=== PATIENT | female | born 1940 | race Caucasian/White ===

== ENCOUNTER → 2023-08-22 10:58 | Outpatient (REF) | payer MEDICARE, OTHER, SELFPAY | LOC: WDC 10:58 | PROVIDERS: ATTENDING PHYSICIAN Obstetrics & Gynecology; FAMILY PHYSICIAN Family Medicine; REFERRING PHYSICIAN Internal Medicine Hematology & Oncology | DX: Z12.31 Encounter for screening mammogram for malignant neoplasm of breast (principal); Z78.0 Asymptomatic menopausal state; E28.39 Other primary ovarian failure | CPT/HCPCS: 77063; 77067; 77080 ==

== ENCOUNTER → 2023-09-23 11:36 | Outpatient (REF) | payer MEDICARE, OTHER, SELFPAY ==
[2023-09-23 13:22] LABS: % Basophils 0.4 % (0-2); % Eosinophils 0.3 % (0-6); % Immature Granulocytes 0.6 % (0-0.5); % Lymphocytes 19.1 % (20.5-51.1); % Monocytes 5.5 % (1.7-9.3); % Neutrophils 74.1 % (42.2-75.2); Absolute Lymphocytes 1.4 10^3/uL (1.2-3.4); Absolute Monocytes 0.4 10^3/uL (0.1-0.6); Absolute Neutrophils 5.2 10^3/uL (1.4-6.5); Hemoglobin 13.6 g/dL (12.0-16.0); Mean Corpuscular Hgb 30.8 pg (27.0-31.0); Mean Corpuscular Volume 90.5 fL (81.0-99.0); Mean Platelet Volume 8.9 fL (7.4-10.4); Nucleated Red Blood Cells % 0 %; Platelet Count 195 10^3/uL (130-400); Red Blood Cell Count 4.42 10^6/uL (4.20-5.40); Red Cell Dist. Width 13.5 % (11.5-14.5); White Blood Cell Count 7.1 10^3/uL (4.8-10.8)
[2023-09-23 13:26] LABS: Urine Albumin Negative (Neg - Trace); Urine Bilirubin Negative (Negative); Urine Character Clear (Clear); Urine Color Yellow; Urine Glucose Negative (Negative); Urine Ketone Negative (Negative); Urine Leukocyte 2+ (Negative); Urine Nitrite Negative (Negative); Urine Occult Blood 2+ (Negative); Urine Urobilinogen Negative (Neg - 1+)
[2023-09-23 13:39] LABS: Urine Bacteria Few (Negative); Urine Red Blood Cell 0-2 /HPF (0-2)
[2023-09-23 13:48] LABS: AST (SGOT) 35 U/L (14-36); Albumin 4.8 g/dl (3.5-5.0); Blood Urea Nitrogen 20 mg/dl (7-17); Carbon Dioxide 22 mmol/L (22-30); Glucose 88 mg/dl (70-99); Total Bilirubin 3.5 mg/dl (0.2-1.3); Total Cholesterol 142 mg/dl (50-199); Triglyceride 59 mg/dl (10-149); Very Low Density Lipoprotein 11 mg/dl (0-30); eGFR > 60.00
[2023-09-23 14:04] LABS: ALT (SGPT) 49 U/L (0-35); Alkaline Phosphatase 84 U/L (38-126); Chloride 104 mmol/L (98-107); Potassium 4.1 mmol/L (3.5-5.1); Sodium 133 mmol/L (135-145)
[2023-09-23 14:05] LABS: Vitamin D, 25-OH*** 38.3 ng/mL (30-80)
[2023-09-23 14:14] LABS: HDL Cholesterol 107 mg/dl; LDL Cholesterol, Calculated 24 mg/dl
[2023-09-23 14:17] LABS: Glycohemoglobin (HgbA1c) 5.8 % (4.0-5.6)
[2023-09-23 14:18] LABS: TSH Reflex To Free T4 1.28 uIU/ml (0.47-4.68)
[2023-09-23 22:09] LABS: Vitamin B12 820 pg/ml (239-931)
== END ==
LOC: RAD 11:36
PROVIDERS: ATTENDING PHYSICIAN Specialist; FAMILY PHYSICIAN Family Medicine; OTHER PHYSICIAN Internal Medicine Cardiovascular Disease; OTHER PHYSICIAN Obstetrics & Gynecology; REFERRING PHYSICIAN Internal Medicine Hematology & Oncology
DX: Z87.442 Personal history of urinary calculi (principal); N39.0 Urinary tract infection, site not specified; E78.2 Mixed hyperlipidemia; R73.03 Prediabetes; R53.83 Other fatigue; K50.90 Crohn's disease, unspecified, without complications
CPT/HCPCS: 36415; 74018; 80053; 80061; 81003; 81015; 82306; 82607; 83036; 84443; 85025; 87086

== ENCOUNTER 2023-12-13 01:37 | Inpatient (IN) | payer MEDICARE, OTHER, SELFPAY ==
[2023-12-12 21:35] VITALS: BP 145/78
--- NOTE | 2023-12-12 21:59 | ED.GENMED ---
History of Present Illness
General
Chief Complaint: Abdominal Symptoms
Source: patient
Exam Limitations: none
Time Seen by Provider: 12/12/23 21:46
History of Present Illness
History of Present Illness:
This is a 83 year old female that comes in with c/o abd pain. States that she has a bowel obstruction. States that she has had them before. State that she is occasionally able to pass a little gas and some liquid stool. States that this awoke her
from sleep at 5am today. States that she would have periods of 1-2 hours where she would feel better and then the pain would come back. Dr. Foster called Dr. Armas who is her surgeon. States that she chronically has diarrhea and has been a little
dizzy. Denies any fever, chills chest pain, SOB, nausea, vomiting, headache, urinary burning
Past History
Past History
ED Past Medical History: Asthma and Other (Vertigo, Crohns, Renal calculus, Anemia, Bowel obstructions. )
ED Past Surgical History: Appendectomy and Bowel resection (Colectomy X 5 rectal surgery, )
Social History
Tobacco: Non-smoker
Alcohol: None
Drug: None
Personal:
Living: with family
Review of Systems
Review of Systems
All Other Systems: ROS reviewed and negative except as documented in HPI and ROS
Constitutional: Reports no symptoms; Denies fever or chills
EENT: Reports no symptoms
Respiratory: Reports no symptoms; Denies cough or trouble breathing
Cardiac: Reports no symptoms; Denies chest pain
ABD/GI: Reports abdominal pain and diarrhea; Denies nausea or vomiting
: Reports no symptoms; Denies dysuria, frequency or urgency
Musculoskeletal: Reports no symptoms
Skin: Reports no symptoms
Neurological: Reports dizzy; Denies headache
Psychiatric: Reports no symptoms
Phy Exam
General Physical Exam
General Presentation: mild distress
General age: appears stated age
General Skin: warm and dry
General Habitus: elderly
General Mental: alert
General Hydration: dry mucous membranes
ENT Exam
ENT Exam: TM's normal, pharynx normal and neck supple
Eye Exam
Eye Exam: EOMI
Cardiovascular Exam
Cardiovascular Exam: regular rate/rhythm, no edema and normal peripheral pulses
Pulmonary Exam
Pulmonary Exam: lungs clear, no respiratory distress, no rales, chest non tender, no crackles, no rhonchi, no wheezing and no cough
Gastrointestinal Exam
Gastrointestinal Exam: soft, no organomegaly, no pulsatile mass, non distended, tender and other (Hypoactive bowel sounds)
Musculoskeletal Exam
Musculoskeletal Exam: full ROM and no edema
Skin Exam
Skin Exam: normal color, warm/dry, no rash and no petechia
Psychiatric Exam
Psychiatric Exam: normal mood/affect
Course
Orders/Labs/Results
Orders:
Orders
12/12/23 21:56
0.9% Sodium Chloride 1000 ml [Nss] 1,000 ml IV BOLUS
Iohexol [Omnipaque] See Protocol PO NOW STA
12/12/23 21:58
Ketorolac [Toradol] 30 mg IV NOW STA
12/12/23 22:40
Complete Blood Count/With Diff Urgent
Comprehensive Metabolic Panel Urgent
Lactic Acid Urgent
12/13/23 00:30
CT Abd/pel W Iv And Oral Contr Urgent
Comment: Dr. Armas would also like rectal contrast
Reason For Exam: abd pain
12/13/23 01:24
Consult Colorectal Surgery [ColoRectal Surgery Consult] Urgent
Consulting Provider: Josef Armas
Was physician already notified: Yes
12/13/23 01:25
Morphine Sulfate 2 mg IV NOW STA
12/13/23 01:26
Admit/Transfer Patient As Directed
Co-Sign Provider:
Level of Care: Inpatient admission
Assign to:: Medical/Surgical
Physician / Group: [email or web address]
Diagnosis: Evolving SBO due to volvulus
Reason for Hospitalization: Evolving SBO due to volvulus
Expected length of stay greater than two midnights?: Yes
ELOS- Estimated Length of Stay in days: 3
I certify the patient meets the requirements for IP care: Yes
12/13/23 01:29
Code Status As Directed
Resuscitation Status: Full Code
Abnormal Lab Results
12/12/23
22:40
WBC 11.8 H 10^3/uL
(4.8-10.8)
MCH 31.2 H pg
(27.0-31.0)
Absolute Neuts (auto) 9.4 H 10^3/uL
(1.4-6.5)
Absolute Monos (auto) 0.9 H 10^3/uL
(0.1-0.6)
Neutrophils % 79.2 H %
(42.2-75.2)
Lymphocytes % 11.3 L %
(20.5-51.1)
Glucose 101 H mg/dl
(70-99)
Total Bilirubin 4.2 H mg/dl
(0.2-1.3)
12/12/23 22:40
12/12/23 22:40
WBC slightly elevated. Glucose nonfasting. total micheal elevation. Lactic acid normal at 1.0
Vital Signs
Initial and Last Documented VS:
Initial Vital Signs
Temp Pulse Resp BP Pulse Ox
98.0 F 81 19 145/78 94
12/12/23 21:35 12/12/23 21:35 12/12/23 21:35 12/12/23 21:35 12/12/23 21:35
Last Documented Vital Signs
Temp Pulse Resp BP Pulse Ox
98.0 F 69 18 141/64 99
12/12/23 21:35 12/13/23 01:15 12/13/23 01:15 12/13/23 01:15 12/13/23 01:15
MDM/Problems Addressed
Differential Diagnosis Includes:
Bowel obstruction,
MDM/Problems Addressed:
This is a 83 year old female that comes in with c/o abd pain. States that she has had bowel obstructions in the past and feels that she has an obstruction. Son spoke with Dr. Armas and he would like a CT scan with oral and rectal contrast.
Will get labs, give IV fluids and CT scan. Will also medicate for pain.
Back into see patient. Explained that the CT shows a bowel obstruction and there is most likely a Volvulus. Will admit patient. Hospitalist and Dr. Armas notified.
Chronic conditions affecting care: Previous abdomnial surgery
Acute Exacerbation and/or Progression of Chronic Illness: Previous abdomnial surgery
*Radiology
Radiology exam reviewed: radiology read reviewed (CT night hawk-Likely distl small bowel volvulus (series 202 image [id number]), with dilated loops of upstream smal bowel compatible with developing small bowel obstruction. Evidence of prior Colectomy.
Cholelithiasis without evidence of cholecystitis. Incidentals: No obstructive uropathy. Nonobstructing ) and all reviewed NAD by ED Provider (CT cont- left nephrolithiasis. No hepatic or pancreatic mass. No abdominal aortic aneurysm. No acute
osseous abnormality. 8mm right lower lobe pulmonary nodule (series 201 image 5) No acute abnormality within the visualized soft tissues. )
*Pulse Oximetry
Patient hypoxic: no
*EKG
Interpreted by ED Provider?: NA
Rate: EKG- N/A
*Parts Consultant Interpretation
Rate: Parts Consultant- N/A
*Critical Care Note
Total Time (30-74mins, 75-104mins- exclusive of procedures): Not Applicable
ED Attending Note
-
Portions of this chart may have been created with voice recognition software.� Occasional wrong word or��sound alike� substitutions may have occurred due to the inherent limitations of voice recognition software.
Discharge Plan
Departure
Patient Disposition: Admit
Date of Disposition: 12/13/23
Time of Disposition: 01:26
Admit to: Med/Surg
Presentation/result/management discussed w/ accepting MD/DO: Hospitalist
Patient with high blood pressure during this ER visit?: Yes
Condition: Good
Covid-19: Not Applicable
Discharge Problem:
SBO (small bowel obstruction), Volvulus
Interventions
Interventions:
*Risk Screen - Suicide Last Done: 12/12/23 23:00
*General Assessment Last Done: 12/12/23 21:36
*Neglect/Abuse Screening Last Done: 12/12/23 23:00
ED- Fall Risk Assessment Last Done: 12/12/23 22:58
*ED COVID-19 Vaccine History Last Done: 12/12/23 21:36
YR-Rjcvgg-Jmogoyrlir Assessment Last Done: 12/12/23 22:58
[2023-12-12 22:31] VITALS: BMI 21.0
[2023-12-12] MEDS: OMNIPAQUE 50 ML PO (22:35)
[2023-12-12] MEDS: TORADOL 30 MG IV (22:39)
[2023-12-12] MEDS: NSS 1000 IV (22:39)
[2023-12-12 22:49] LABS: % Basophils 0.3 % (0-2); % Eosinophils 1.1 % (0-6); % Immature Granulocytes 0.3 % (0-0.5); % Lymphocytes 11.3 % (20.5-51.1); % Monocytes 7.8 % (1.7-9.3); % Neutrophils 79.2 % (42.2-75.2); Absolute Eosinophils 0.1 10^3/uL (0-0.7); Absolute Lymphocytes 1.3 10^3/uL (1.2-3.4); Absolute Monocytes 0.9 10^3/uL (0.1-0.6); Absolute Neutrophils 9.4 10^3/uL (1.4-6.5); Hematocrit 38.6 % (37.0-47.0); Hemoglobin 13.6 g/dL (12.0-16.0); Mean Corp Hgb Conc. 35.2 g/dL (33.0-37.0); Mean Corpuscular Hgb 31.2 pg (27.0-31.0); Mean Corpuscular Volume 88.5 fL (81.0-99.0); Mean Platelet Volume 8.5 fL (7.4-10.4); Nucleated Red Blood Cells % 0 %; Platelet Count 161 10^3/uL (130-400); Red Blood Cell Count 4.36 10^6/uL (4.20-5.40); Red Cell Dist. Width 13.3 % (11.5-14.5); White Blood Cell Count 11.8 10^3/uL (4.8-10.8)
[2023-12-12 23:04] LABS: ALT (SGPT) 20 U/L (0-35); AST (SGOT) 32 U/L (14-36); Albumin 4.4 g/dl (3.5-5.0); Alkaline Phosphatase 70 U/L (38-126); Blood Urea Nitrogen 13 mg/dl (7-17); Calcium 9.6 mg/dl (8.4-10.2); Carbon Dioxide 26 mmol/L (22-30); Chloride 102 mmol/L (98-107); Estimated Creatinine Clearance 50 ml/min; Glucose 101 mg/dl (70-99); Potassium 3.7 mmol/L (3.5-5.1); Sodium 135 mmol/L (135-145); Total Bilirubin 4.2 mg/dl (0.2-1.3); Total Protein 7.5 g/dl (6.3-8.2); eGFR > 60.00
[2023-12-13] VITALS (17 sets, daily range): BP systolic 111–141; BP diastolic 53–71; PULSE 80; O2SAT 97; BMI 21.0
--- NOTE | 2023-12-13 01:05 | HPS.HSE ---
Addendum entered and electronically signed by Hamlet Amezcua MD 12/13/23 02:18:
As per CRS Dr Parsons, will plan for OR around 4-5 am.
- T & S, INR requested
- will keep NPO and IVF
- patient was informed
Original Note:
Family Physician
-
Family Physician: Troy Diaz
Chief Complaint
-
woke up with abdominal pain at 5 am 12/12/23
History of Present Illness
83F HX recurrent SBO, Laparotomy with reduction of volvulus, tube decompression and suture pexy on 03/01/23. seen at ER for abd pain.
Evaluation of abdominal pain
- report similar to prior SBO
- colicky abdominal pain woke her up from the sleep at 5am today.
- HX chronic diarrhea with mild dizziness
ROS:
Denies any fever, chills chest pain, SOB, nausea, vomiting, headache, urinary burning
Medical History
Past Medical History
Past Medical History: Reports Other
Additional Past Medical History:
Crohn disease
small bowel obstruction
Asthma
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
Past Surgical History: Reports Other
Additional Past Surgical History:
Multiple colectomy
Rectal surgery
Appendectomy
Laparotomy with reduction of volvulus, tube decompression and suture pexy on 03/01/23.
Social History
Tobacco: Non-smoker
Alcohol: None
Drug: None
Personal:
Living: With Family
Employment: Retired
Family History
Family History: Not pertinent
Allergies / Home Medications
Allergies reflects when Allergies were last updated in [facility].
Home Medications with original date entered in [facility]
Allergy/Medication List:
Allergies
Allergy/AdvReac Type Severity Reaction Status Date / Time
codeine Allergy Unknown Verified 11/26/17 00:55
seasonal Allergy sneezing Uncoded 11/26/17 00:55
silk sutures Allergy abcess Uncoded 11/26/17 00:55
Home Medications
biotin 5,000 mcg disintegrating tablet 5,000 mcg PO DAILY 11/26/17
calcium citrate 315 mg calcium-vitamin D3 6.25 mcg (250 unit) tablet (Citracal + Vitamin D Maximum) 1 ea PO NOON 11/26/17
cetirizine 10 mg tablet 10 mg PO DAILY 11/26/17
cyanocobalamin (vitamin B-12) 1,000 mcg/mL injection solution 1,000 mcg IM MONTHLY 11/26/17
fluticasone propionate 50 mcg/actuation nasal spray,suspension 1 spray intranasal DAILY 11/26/17
guaifenesin 600 mg tablet, extended release 12 hr (Mucus Relief ER) 600 mg PO DAILYPRN PRN cough 11/26/17
omeprazole 20 mg capsule,delayed release 20 mg PO DAILY 11/26/17
azelastine 137 mcg (0.1 %) nasal spray aerosol 1 spray intranasal DAILY 03/01/23
cholecalciferol (vitamin D3) 125 mcg (5,000 unit) tablet (Vitamin D3) 125 mcg PO QPM 03/01/23
cholestyramine (with sugar) 4 gram powder for susp in a packet 4 g PO DAILY 03/01/23
estradiol 0.025 mg/24 hr weekly transdermal patch 1 patch transdermal TU 03/01/23
fluticasone 250 mcg-salmeterol 50 mcg/dose blistr powdr for inhalation (Wixela Inhub) 1 inh inhalation R DAILY 03/01/23
montelukast 10 mg tablet 10 mg PO QPM 03/01/23
progesterone micronized 100 mg capsule 100 mg PO QPM 03/01/23
psyllium 1 packet PO QPM 03/01/23
Review of Systems
-
Constitutional: Reports No Symptoms
EENT: Reports No Symptoms
Respiratory: Reports No Symptoms
Cardiac: Reports No Symptoms
Abdomen/GI: Reports Abdominal Pain, Nausea and Diarrhea (chronic )
: Reports No Symptoms
Musculoskeletal: Reports No Symptoms
Skin: Reports No Symptoms
Neurological: Reports No Symptoms
Endocrine: Reports No Symptoms
Hematologic/Lymphatic: Reports No Symptoms
Psych: Reports No Symptoms
Physical Exam
Vital Signs
Vital Signs
Temp Pulse Resp BP Pulse Ox
98.0 F 81 19 145/78 94
12/12/23 21:35 12/12/23 21:35 12/12/23 21:35 12/12/23 21:35 12/12/23 21:35
Physical Exam
General: Well Developed, Well Nourished and No Apparent Distress
HEENT: NormoCephalic, Moist mucous membranes and Atraumatic
Respiratory: Clear
Cardiac: S1/S2 and Regular Rhythm; No Murmur or Rub
GI: Tender and Distended; No Organomegaly
Rectal: Deferred by Provider
Musculoskeletal: No Clubbing, No Cyanosis and No Edema
Skin: No Rash
Neuro: AO x 3 and Nonfocal/grossly intact
Psych: Calm
Laboratory Results
-
12/12/23 22:40
12/12/23 22:40
Laboratory Results
Lactic Acid 1.0 mmol/L (0.7-2.0) 12/12/23 22:40
Total Bilirubin 4.2 mg/dl (0.2-1.3) H 12/12/23 22:40
AST 32 U/L (14-36) 12/12/23 22:40
ALT 20 U/L (0-35) 12/12/23 22:40
Alkaline Phosphatase 70 U/L (38-126) 12/12/23 22:40
Data Reviewed
-
CT Scan: Discussed with Physician
Lab Data: Labs Reviewed by me
Old Records: Reviewed
Impression/Plan
-
Reviewed VS: unremarkable
Data
WCC 11.8
Cr 0.7
e GFR >60
TB 4.2
12/12/23 CT AP w PO contrast
Likely distl small bowel volvulus (series 202 image [id number]), with dilated loops of upstream smal bowel compatible with developing small bowel obstruction.
Evidence of prior Colectomy.
Cholelithiasis without evidence of cholecystitis.
Incidentals: No obstructive uropathy. Nonobstructing left nephrolithiasis. No hepatic or pancreatic mass.
No abdominal aortic aneurysm.
No acute osseous abnormality. 8mm right lower lobe pulmonary nodule (series 201 image 5)
No acute abnormality within the visualized soft tissues
Last hospitalist admission: 03/01/23 - 03/08/23
DISCHARGE DIAGNOSES:
1. Volvulus status post laparotomy with reduction of volvulus.
2. Tube decompression and suture pexy.
3. Asthma.
4. Hypokalemia-low potassium.
5. Crohn's disease.
ASSESSMENT & PLAN
Likely distal small bowel volvulus with dilated loops of upstream small bowel compatible with developing small bowel obstruction: recurrent
- NPO and IVF
- NGT for decompression if persistent emesis
- PRN IV Zofran for n/v
- PRN IV Dilaudid
- CRS consulted
HX asthma
-Not in acute exacerbation
-Fluticasone continued
HX Crohn disease
-Holding all oral medication due to strict n.p.o.
-Resume once patient is able to tolerate oral intake
DVT Px: SQH
Code: Full
IP MS
[2023-12-13] MEDS: MORPHINE SULFATE 2 MG IV (01:29)
[2023-12-13] MEDS: NSS 1000 IV ×3 (02:34→20:11)
--- NOTE | 2023-12-13 05:11 | CON.CRS ---
Consultation
-
Date/Time Consultation Requested: 12/13/23 @1:24
Date/Time Consultation Performed: 12/13/23 @4:30
Requesting Provider: ESTIVEN West
Performing Provider: Fernando Armas MD
Reason for Consultation: Small bowel volvulus
Medical History
-
Chief Complaint: Abdominal pain and distention
History of Present Illness:
83-year-old female well-known to me with a history of Crohn's disease having undergone multiple resections in the past, who presents with abdominal pain and distention that began at 5 AM yesterday. She has had intermittent volvulus being managed at
an outside hospital and presented to our ER in February 23, 2023 with similar symptoms. I performed a laparotomy at which time she had relatively short bowel with a volvulus of the segment just proximal to her ileosigmoid anastomosis. The
anastomosis itself was widely patent and the bowel was viable. I performed a pexy to the right lateral wall and since that time she has had 2 episodes of some abdominal cramps that quickly resolved. Over the past 24 hours she is passing very
little flatus but denies any nausea, vomiting, fevers or chills. She states she is on a fairly restricted diet and did not deviate. Her last flexible sigmoidoscopy was last year and the anastomosis was patent.
Past Medical History
Past Medical History: Asthma, GERD and Other (Nephrolithiasis, history ()
Past Surgical History: Appendectomy and Bowel Resection (5 colectomies many years ago and the laparotomy last year without a resection; perianal fistula surgery)
Social History
Tobacco: Non-Smoker
Alcohol: None
Personal:
Family History
Family History: Reviewed & Not Pertinent
Allergies / Home Medications
Allergy/AdvReac Type Severity Reaction Status Date / Time
codeine Allergy Unknown Verified 12/12/23 21:35
some dissolvable sutures Allergy Severe Unknown Uncoded 12/12/23 21:35
seasonal Allergy sneezing Uncoded 12/12/23 21:35
silk sutures Allergy abcess Uncoded 12/12/23 21:35
�Medication �Instructions �Recorded �Confirmed �Type
biotin 5,000 mcg disintegrating 5,000 mcg PO HS Supplement 11/26/17 12/12/23 History
tablet
calcium citrate 315 mg 1 ea PO QPM Supplement 11/26/17 12/12/23 History
calcium-vitamin D3 6.25 mcg (250
unit) tablet (Citracal + Vitamin D
Maximum)
cetirizine 10 mg tablet 10 mg PO HS Allergies 11/26/17 12/12/23 History
fluticasone propionate 50 1 spray intranasal HS Allergies 11/26/17 12/12/23 History
mcg/actuation nasal
spray,suspension
guaifenesin 600 mg tablet, 600 mg PO DAILYPRN PRN 11/26/17 12/12/23 History
extended release 12 hr (Mucus cough/congestion
Relief ER)
omeprazole 20 mg capsule,delayed 20 mg PO HS GERD 11/26/17 12/12/23 History
release
azelastine 137 mcg (0.1 %) nasal 1 spray intranasal DAILY Allergies 03/01/23 12/12/23 History
spray
cholecalciferol (vitamin D3) 125 125 mcg PO HS Supplement 03/01/23 12/12/23 History
mcg (5,000 unit) tablet (Vitamin
D3)
estradiol 0.025 mg/24 hr weekly 1 patch transdermal TU Hormone 03/01/23 12/12/23 History
transdermal patch replacement
fluticasone 250 mcg-salmeterol 50 1 inh inhalation R HS Allergies 03/01/23 12/12/23 History
mcg/dose blistr powdr for
inhalation (Wixela Inhub)
montelukast 10 mg tablet 10 mg PO HS Allergies 03/01/23 12/12/23 History
progesterone micronized 100 mg 100 mg PO HS Hormone replacement 03/01/23 12/12/23 History
capsule
albuterol sulfate 90 mcg/actuation 2 puff inhalation R Q6 PRN 12/12/23 12/12/23 History
aerosol inhaler sob/wheezing
cholestyramine (with sugar) 4 gram 1 ea PO DAILY 12/12/23 12/12/23 History
powder for susp in a packet
cyanocobalamin (vitamin B-12) 1,000 mcg PO HS 12/12/23 12/12/23 History
1,000 mcg tablet
famotidine 20 mg tablet 20 mg PO DAILY PRN 12/12/23 12/12/23 History
heartburn/indigestion
psyllium 1 packet PO HS 12/12/23 12/12/23 History
Review of Systems
-
History Source: Patient
All other systems: Negative unless noted
A 10 point review of systems was completed, and was negative except as per HPI.
Physical Exam
Vital Signs
Temp 98.0 F 12/12/23 21:35
Pulse 65 12/13/23 03:40
Resp Rate 16 12/13/23 03:40
Blood pressure 141/68 12/13/23 03:40
SaO2 97 12/13/23 03:40
12/11/23 12/12/23 12/13/23
06:59 06:59 06:59
Actual Weight 52.1 kg
Body Mass Index (BMI) 21.0
Lab Results / Allergies
WBC 11.8 10^3/uL (4.8-10.8) H 12/12/23 22:40
Hgb 13.6 g/dL (12.0-16.0) 12/12/23 22:40
Hct 38.6 % (37.0-47.0) 12/12/23 22:40
Plt Count 161 10^3/uL (130-400) 12/12/23 22:40
Abs Immat Gran (auto) 0.0 10^3/uL (0-0.05) 12/12/23 22:40
Neutrophils % 79.2 % (42.2-75.2) H 12/12/23 22:40
Allergy/AdvReac Type Severity Reaction Status Date / Time
codeine Allergy Unknown Verified 12/12/23 21:35
some dissolvable sutures Allergy Severe Unknown Uncoded 12/12/23 21:35
seasonal Allergy sneezing Uncoded 12/12/23 21:35
silk sutures Allergy abcess Uncoded 12/12/23 21:35
Physical Exam
General: Well Developed, Well Nourished and No Apparent Distress
HEENT: Anicteric
Respiratory: Clear
Cardiac: Regular Rhythm
GI: Soft, Non Tender and Distended (Tympanitic)
Musculoskeletal: No Edema
Neuro: Awake and Alert
Data Reviewed
-
CT Scan: Image Personally Visualized and interpreted, Report Reviewed by me and Discussed with Patient
Labs: Labs Reviewed by me and Discussed with Patient
Assessment / Plan
-
Recurrent small bowel volvulus with no evidence of bowel threat/compromise.
I reviewed the current findings and discussed the treatment options including nonoperative management versus surgery. Risks of not operating include bowel ischemia, perforation, and recurrence. Risks of surgery include, but are not limited to,
bleeding, infection, adhesions, hernias, injury to other structures, recurrent volvulus, DVT, cardiopulmonary complications, the risks of anesthesia. I also reviewed the typical recovery both in and out of the hospital as well as the functional
results. The operation would involve a laparotomy (given the degree of distention), lysis of adhesions, possible bowel resection with or without a stoma, and possibly a suture pexy again. All questions answered and she wishes to proceed with
surgery. Arrangements are in progress for the operating room.
--- NOTE | 2023-12-13 07:53 | W.IMMPOSTOP ---
Surgical Immed Post Op Note
-
Primary Surgeon: Fernando Armas MD
Physician Extender: DARLYN Gastelum
Pre-op Diagnosis: Small bowel volvulus
Post-op Diagnosis: Same
Procedure Performed: Exploratory laparotomy, detorsion of volvulus, rigid proctoscopy and suture pexy
Anesthesia Type: GET
Specimen / Cultures: None
Estimated Blood Loss: 8cc
Complications: None
Operative Findings: Small bowel volvulus (bowel without ischemia)
Chronically dilated distal small bowel
Distal loops of small bowel aligned and sutured with interrupted 3-0 Vicryl
Small bowel proximal to the anastomosis sutured to the right lateral gutter
Rigid proctoscopy for decompression
NGT in the fundus of the stomach
Her son, Riki, was updated.
[2023-12-13] MEDS: DILAUDID 0.25 MG IV ×4 (08:24→23:13)
[2023-12-13] MEDS: ADVAIR HFA 115/21 MCG INHALER INH (09:19)
--- NOTE | 2023-12-13 09:34 | W.PN.HOSP.TC ---
Today's Communication/Plan
-
ngt; adat once bowel function improves
pain control
Assessment / Plan
Assessment / Plan
Physical Exam
General: Well Developed, Well Nourished and No Apparent Distress
HEENT: Anicteric
Respiratory: Clear
Cardiac: Regular Rhythm
GI: Soft, Non Tender and Distended (Tympanitic)
Musculoskeletal: No Edema
Neuro: Awake and Alert
83F HX recurrent SBO, Laparotomy with reduction of volvulus, tube decompression and suture pexy on 03/01/23, now presents for abdominal pain, noted to have small bowel volvulus without bowel ischemia. Patient underwent Exploratory laparotomy,
detorsion of volvulus, rigid proctoscopy and suture pexy.
# Small bowel obstruction
-no evidence of bowel threat/compromise.
� S/p Exploratory laparotomy, detorsion of volvulus, rigid proctoscopy and suture pexy.
- Operative findings include small bowel volvulus. Small bowel proximal to the anastomosis was sutured to the right lateral gutter.
-Appreciate CRS on the case
-NGT decompression for now
- Pain Control
# Hyperbilirubinemia
� Appears chronic
� Follow-up direct bili
�Follow-up outpatient
HX asthma
-Not in acute exacerbation
-Fluticasone continued
HX Crohn disease
-Holding all oral medication due to strict n.p.o.
-Resume once patient is able to tolerate oral intake
-H/O colectomy x5, Anorectal Crohn's disease
-H/O perianal fistula repair
DVT Px: SQH
Code: Full
Anticipated Discharge: 24 - 48 hours
Subjective/Interval History
-
Date of Service: December 13, 2023
Tolerated exploratory laparotomy, detorsion of volvulus, rigid proctoscopy and suture pexy well this AM. Speaking in full sentences, conversant. appears comfortable.
Objective Data
-
Labs:
Laboratory Results
12/12/23 12/13/23
22:40 06:00
WBC 11.8 H Pending
Hgb 13.6 Pending
Hct 38.6 Pending
Plt Count 161 Pending
PT Pending
INR Pending
Sodium 135 Pending
Potassium 3.7 Pending
Chloride 102 Pending
Carbon Dioxide 26 Pending
BUN 13 Pending
Creatinine 0.7 Pending
Glucose 101 H Pending
Calcium 9.6 Pending
Total Bilirubin 4.2 H Pending
AST 32 Pending
ALT 20 Pending
Alkaline Phosphatase 70 Pending
Vital Signs:
Vital Signs
Temp Pulse Resp BP Pulse Ox
97.6 F 75 16 125/67 97
12/13/23 09:27 12/13/23 09:27 12/13/23 09:27 12/13/23 09:27 12/13/23 09:27
I&O
12/12/23 12/13/23 12/14/23
06:59 06:59 06:59
Intake Total 130 / 130
Output Total 200 / 200
Balance -70 / -70
Review of Systems
-
History Source: Patient
All other systems: Not reviewed unless documented
Data Reviewed
-
CT Scan: Image personally visualized and interpreted and Report Reviewed by me
Labs: Labs Reviewed by me
--- NOTE | 2023-12-13 09:45 | PTCARENOTE ---
Received this pt from PACU with ADMINISTRATIVE ASSISTANT RECEPTIONIST at bedside, 2Lo[address], NGT in right nare draining brown to continuous suction, Panda in place draining clear yellow. Pt oriented to room resting comfortably in bed with son at bedside.
[2023-12-13] MEDS: HEPARIN 5000 UNITS SC ×2 (10:29→19:54)
[2023-12-13 10:42] LABS: Hematocrit 38.1 % (37.0-47.0); Hemoglobin 12.8 g/dL (12.0-16.0); Mean Corp Hgb Conc. 33.6 g/dL (33.0-37.0); Mean Corpuscular Hgb 31.1 pg (27.0-31.0); Mean Corpuscular Volume 92.5 fL (81.0-99.0); Mean Platelet Volume 8.7 fL (7.4-10.4); Platelet Count 176 10^3/uL (130-400); Red Blood Cell Count 4.12 10^6/uL (4.20-5.40); Red Cell Dist. Width 13.5 % (11.5-14.5); White Blood Cell Count 10.1 10^3/uL (4.8-10.8)
[2023-12-13 10:57] LABS: ALT (SGPT) 18 U/L (0-35); AST (SGOT) 30 U/L (14-36); Albumin 3.4 g/dl (3.5-5.0); Alkaline Phosphatase 60 U/L (38-126); Blood Urea Nitrogen 12 mg/dl (7-17); Calcium 8.1 mg/dl (8.4-10.2); Carbon Dioxide 21 mmol/L (22-30); Chloride 106 mmol/L (98-107); Estimated Creatinine Clearance 50 ml/min; Glucose 102 mg/dl (70-99); Potassium 3.9 mmol/L (3.5-5.1); Sodium 136 mmol/L (135-145); Total Bilirubin 4.7 mg/dl (0.2-1.3); Total Protein 6.2 g/dl (6.3-8.2); eGFR > 60.00
[2023-12-13 13:54] LABS: Direct Bilirubin 0.5 mg/dl (0.0-0.4)
--- NOTE | 2023-12-13 17:27 | CM ---
S/P surgery. Currently has NGT. Initial assessment completed with patient who lives alone in a 2 story home plus basement with B/B on 1st floor and 3 steps to enter. No DME or in-home services. ELDERLY SITTER patient was independent and drove. Her
is a resident of [facility] in [facility]. There were recent end of life discussions. She has great concern because she has been with her every day and is fearful that he will decompensate without the routine of her being with him. Patient has no
Psychiatric hospitalizations. Pharmacy is [address] in [place] and PCP is Dr. Troy Diaz. Discharge Plan of Care: Patient anticipates home with no services. Will follow medical progression.
[2023-12-13] MEDS: ADVAIR HFA 115/21 MCG INHALER 2 PUFF INH (18:46)
[2023-12-14 03:29] VITALS: BP 117/54
[2023-12-14] MEDS: DILAUDID 0.25 MG IV (03:44)
[2023-12-14] MEDS: FLUSH (NSS) 2 FLUSH IV ×4 (03:47→18:33)
[2023-12-14 06:00] VITALS: BMI 20.7
--- NOTE | 2023-12-14 06:13 | PTCARENOTE ---
Patient c/o NG tube being uncomfortable and it being noisy. Repositioned patient higher in bed for comfort and to minimize noise. Patient coughed up a scant amount of blood tinged sputum. Had been advised similar occurred on dayshift.
[2023-12-14] MEDS: ADVAIR HFA 115/21 MCG INHALER 2 PUFF INH ×2 (07:24→20:46)
[2023-12-14 07:48] VITALS: BP 115/51
[2023-12-14] MEDS: HEPARIN 5000 UNITS SC ×2 (08:14→20:39)
[2023-12-14] MEDS: NSS 1000 IV ×2 (08:25→21:05)
[2023-12-14 09:25] LABS: Hematocrit 35.7 % (37.0-47.0); Hemoglobin 12.2 g/dL (12.0-16.0); Mean Corp Hgb Conc. 34.2 g/dL (33.0-37.0); Mean Corpuscular Volume 90.6 fL (81.0-99.0); Mean Platelet Volume 9.5 fL (7.4-10.4); Platelet Count 149 10^3/uL (130-400); Red Blood Cell Count 3.94 10^6/uL (4.20-5.40); Red Cell Dist. Width 13.7 % (11.5-14.5); White Blood Cell Count 7.1 10^3/uL (4.8-10.8)
[2023-12-14 10:02] LABS: ALT (SGPT) 17 U/L (0-35); AST (SGOT) 35 U/L (14-36); Albumin 3.3 g/dl (3.5-5.0); Alkaline Phosphatase 63 U/L (38-126); Blood Urea Nitrogen 21 mg/dl (7-17); Calcium 8.4 mg/dl (8.4-10.2); Carbon Dioxide 27 mmol/L (22-30); Chloride 106 mmol/L (98-107); Estimated Creatinine Clearance 44 ml/min; Glucose 82 mg/dl (70-99); Magnesium 1.9 mg/dl (1.6-2.3); Potassium 3.5 mmol/L (3.5-5.1); Sodium 141 mmol/L (135-145); Total Bilirubin 4.1 mg/dl (0.2-1.3); Total Protein 5.9 g/dl (6.3-8.2); eGFR > 60.00
--- NOTE | 2023-12-14 11:27 | W.PN.CRS1 ---
Addendum entered and electronically signed by Janusz Epperson MD 12/14/23 14:50:
I saw and examined the patient.
The DETACHER's note was reviewed and I agree with the note.
Comment:
POD 1 ex lap, detorsion of small bowel with abdominal pexy
Overall, doing well. Currently n.p.o. with NGT. Pain controlled, but NGT causing throat/neck pain. No bowel function yet.
AFVSS +s1/s2, no respiratory distress, abd soft/mildly distended/appropriately tender, no r/g, incisions well-approximated without signs of infection
WBC 7.1, Hb 12.2 from 12.8, NGT�500 mL with dark red/coffee-ground output
�Continue n.p.o. with IVF
�Add PPI for NGT output
Continue DVT PPx with subQ heparin
�Continue pain control; add IV Tylenol and throat lozenge
-OOB/IS, ambulate BID
�Appreciate hospitalist
Original Note:
Today's Communication / Plan
-
Continue NGT
Add PPI
Ofirmev prn
Mobilize patient
Assessment/Plan
-
83 yo female with history of Crohn's disease having undergone multiple resections in the past presenting this admission with recurrent small bowel volvulus (last episode was 03/2023) now POD #1 Exploratory laparotomy with the torsion of volvulus,
rigid proctoscopy, and suture-pexy. No bowel ischemia noted intraop.
AFVSS
Labs stable
NGT still with high outputs, blood tinged and bilious outptus
Await return of bowel function
--Continue NPO with NGT decompression
--Add IV protonix 40mg BID for GI ppx
--Continue to follow labs
--Continue IVF
--Multimodal analgesics. Avoid NSAIDs given blood tinged NGT outputs. IV Ofirmev/Dilaudid prn.
--Heparin SQ and SCD's for VTE ppx
--OOB/Ambulate
--IS while awake
Appreciate hospitalist following with us for medical management
Subjective Data
Procedure
12/13/23 Exploratory laparotomy, detorsion of volvulus, rigid proctoscopy and suture pexy
Subjective Data
Date of Service: December 14, 2023
Patient seen and examined at bedside. Minimal post op discomfort. Did feel a 'flipping' sensation to the left side of her abdomen. Irritation from NGT, but manageable. No n/v. No passage of flatus/stool.
Objective Data
-
Vital Signs
Temp Pulse Resp BP Pulse Ox
98.0 F 74 16 115/51 93
12/14/23 07:48 12/14/23 07:48 12/14/23 07:48 12/14/23 07:48 12/14/23 07:48
Intake & Output
12/13/23 12/14/23 12/15/23
06:59 06:59 06:59
Intake Total 1430 / 1430
Output Total 1200 / 1200
Balance 230 / 230
Intake:
Oral fluids 220 / 220
IV fluids (Total) 1060 / 1060
normosol 100 / 100
Amount instilled into GI Tube ( 150 / 150
Total)
[place] Sump 150 / 150
Output:
Gastrointestinal tube output ( 500 / 500
Total)
[place] Sump 500 / 500
Urine, Panda 700 / 700
Lab Results
12/14/23 08:28
12/14/23 08:28
Physical Exam
-
General: No Acute Distress
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
Skin: Warm and Dry
Wound: Dressing in Place (Aquacel)
[2023-12-14] MEDS: PROTONIX IV 40 MG IV ×2 (11:45→20:30)
[2023-12-14] MEDS: NSS (PRESERVATIVE FREE) 10 ML IV ×2 (11:45→20:36)
--- NOTE | 2023-12-14 12:43 | W.PN.HOSP.TC ---
Today's Communication/Plan
-
ngt
ppi iv
pain control
early ambulation
Assessment / Plan
Assessment / Plan
Physical Exam
General: Well Developed, Well Nourished and No Apparent Distress
HEENT: Anicteric
Respiratory: Clear
Cardiac: Regular Rhythm
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
Musculoskeletal: No Edema
Neuro: Awake and Alert
83F HX recurrent SBO, Laparotomy with reduction of volvulus, tube decompression and suture pexy on 03/01/23, now presents for abdominal pain, noted to have small bowel volvulus without bowel ischemia. Patient underwent Exploratory laparotomy,
detorsion of volvulus, rigid proctoscopy and suture pexy.
# Small bowel obstruction
-no evidence of bowel threat/compromise.
� S/p Exploratory laparotomy, detorsion of volvulus, rigid proctoscopy and suture pexy.
- Operative findings include small bowel volvulus. Small bowel proximal to the anastomosis was sutured to the right lateral gutter.
-Appreciate CRS on the case
-NGT decompression for now, still having high output;
-IV PPI BID
- Pain Control
-early Ambulation
# Hyperbilirubinemia
� Appears chronic
� Follow-up direct bili: .5
�Follow-up outpatient
HX asthma
-Not in acute exacerbation
-Fluticasone continued
HX Crohn disease
-Holding all oral medication due to strict n.p.o.
-Resume once patient is able to tolerate oral intake
-H/O colectomy x5, Anorectal Crohn's disease
-H/O perianal fistula repair
DVT Px: SQH
Code: Full
Anticipated Discharge: > 48 hours
Subjective/Interval History
-
Date of Service: December 14, 2023
No acute events
Objective Data
-
Labs:
Laboratory Results
12/14/23
08:28
WBC 7.1
Hgb 12.2
Hct 35.7 L
Plt Count 149
Sodium 141
Potassium 3.5
Chloride 106
Carbon Dioxide 27
BUN 21 H
Creatinine 0.8
Glucose 82
Calcium 8.4
Total Bilirubin 4.1 H
AST 35
ALT 17
Alkaline Phosphatase 63
Vital Signs:
Vital Signs
Temp Pulse Resp BP Pulse Ox
98.0 F 74 16 115/51 93
12/14/23 07:48 12/14/23 07:48 12/14/23 07:48 12/14/23 07:48 12/14/23 07:48
I&O
12/13/23 12/14/23 12/15/23
06:59 06:59 06:59
Intake Total 1430 / 1430
Output Total 1200 / 1200
Balance 230 / 230
Review of Systems
-
History Source: Patient
All other systems: Not reviewed unless documented
Data Reviewed
-
CT Scan: Image personally visualized and interpreted and Report Reviewed by me
Labs: Labs Reviewed by me
[2023-12-14] MEDS: DILAUDID 0.5 MG IV (12:59)
[2023-12-14 15:10] VITALS: BP 115/69
[2023-12-14] MEDS: OFIRMEV 100 IV (18:30)
[2023-12-14] MEDS: ANESTHETIC LOZENGE 1 LOZENGE PO (21:05)
[2023-12-14 23:08] VITALS: BP 127/64
[2023-12-15] MEDS: OFIRMEV 100 IV ×2 (00:51→08:37)
[2023-12-15] MEDS: NSS IV (01:36)
[2023-12-15 05:52] VITALS: BMI 20.9
[2023-12-15 06:00] VITALS: BMI 20.9
[2023-12-15 07:25] VITALS: BP 118/55
[2023-12-15] MEDS: ADVAIR HFA 115/21 MCG INHALER 2 PUFF INH ×2 (07:26→18:25)
[2023-12-15] MEDS: PROTONIX IV 40 MG IV ×2 (08:36→20:50)
[2023-12-15] MEDS: NSS (PRESERVATIVE FREE) 10 ML IV ×2 (08:36→20:50)
--- NOTE | 2023-12-15 08:36 | W.PN.HOSP.TC ---
Addendum entered and electronically signed by Willi Cedeño MD 12/15/23 13:24:
#Hypokalemia
-monitor and replete
Original Note:
Today's Communication/Plan
-
remove ngt
okay for po meds/sips/chips
monitor bowel function
Assessment / Plan
Assessment / Plan
Physical Exam
General: Well Developed, Well Nourished and No Apparent Distress
HEENT: Anicteric
Respiratory: Clear
Cardiac: Regular Rhythm
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
Musculoskeletal: No Edema
Neuro: Awake and Alert
83F HX recurrent SBO, Laparotomy with reduction of volvulus, tube decompression and suture pexy on 03/01/23, now presents for abdominal pain, noted to have small bowel volvulus without bowel ischemia. Patient underwent Exploratory laparotomy,
detorsion of volvulus, rigid proctoscopy and suture pexy.
# Small bowel obstruction
-no evidence of bowel threat/compromise.
� S/p Exploratory laparotomy, detorsion of volvulus, rigid proctoscopy and suture pexy.
- Operative findings include small bowel volvulus. Small bowel proximal to the anastomosis was sutured to the right lateral gutter.
-Appreciate CRS on the case
-Can remove NGT
-Okay for meds, sips/chips
-IV PPI BID
- Pain Control
-early Ambulation
# Hyperbilirubinemia
� Appears chronic
� Follow-up direct bili: .5
�Follow-up outpatient
HX asthma
-Not in acute exacerbation
-Fluticasone continued
HX Crohn disease
-Holding all oral medication due to strict n.p.o.
-Resume once patient is able to tolerate oral intake
-H/O colectomy x5, Anorectal Crohn's disease
-H/O perianal fistula repair
#Benign 9 mm right lower lobe pulmonary nodule
DVT Px: SQH
Code: Full
Anticipated Discharge: 24 - 48 hours
Subjective/Interval History
-
Date of Service: December 15, 2023
NGT�225 mL dark gastric quality; no other acute events overnight
Objective Data
-
Labs:
Laboratory Results
12/15/23
07:47
WBC Pending
Hgb Pending
Hct Pending
Plt Count Pending
Sodium Pending
Potassium Pending
Chloride Pending
Carbon Dioxide Pending
BUN Pending
Creatinine Pending
Glucose Pending
Calcium Pending
Total Bilirubin Pending
AST Pending
ALT Pending
Alkaline Phosphatase Pending
Vital Signs:
Vital Signs
Temp Pulse Resp BP Pulse Ox
98.1 F 73 16 127/64 94
12/14/23 23:08 12/15/23 07:31 12/15/23 07:31 12/14/23 23:08 12/15/23 07:31
I&O
12/14/23 12/15/23 12/16/23
06:59 06:59 06:59
Intake Total 1430 / 1430 1810 / 1810
Output Total 1200 / 1200 975 / 975
Balance 230 / 230 835 / 835
Review of Systems
-
History Source: Patient
All other systems: Not reviewed unless documented
Data Reviewed
-
CT Scan: Image personally visualized and interpreted and Report Reviewed by me
Labs: Labs Reviewed by me
[2023-12-15] MEDS: HEPARIN 5000 UNITS SC ×2 (08:37→20:19)
[2023-12-15] MEDS: FLUSH (NSS) 2 FLUSH IV (08:39)
[2023-12-15 08:47] LABS: Hematocrit 33.4 % (37.0-47.0); Hemoglobin 11.1 g/dL (12.0-16.0); Mean Corp Hgb Conc. 33.2 g/dL (33.0-37.0); Mean Corpuscular Hgb 30.5 pg (27.0-31.0); Mean Corpuscular Volume 91.8 fL (81.0-99.0); Mean Platelet Volume 9.4 fL (7.4-10.4); Platelet Count 136 10^3/uL (130-400); Red Blood Cell Count 3.64 10^6/uL (4.20-5.40); Red Cell Dist. Width 13.6 % (11.5-14.5); White Blood Cell Count 6.8 10^3/uL (4.8-10.8)
[2023-12-15 09:11] LABS: ALT (SGPT) 15 U/L (0-35); AST (SGOT) 28 U/L (14-36); Alkaline Phosphatase 54 U/L (38-126); Blood Urea Nitrogen 19 mg/dl (7-17); Calcium 8.2 mg/dl (8.4-10.2); Carbon Dioxide 26 mmol/L (22-30); Chloride 106 mmol/L (98-107); Estimated Creatinine Clearance 50 ml/min; Glucose 72 mg/dl (70-99); Potassium 3.3 mmol/L (3.5-5.1); Sodium 140 mmol/L (135-145); Total Bilirubin 3.1 mg/dl (0.2-1.3); Total Protein 5.5 g/dl (6.3-8.2); eGFR > 60.00
--- NOTE | 2023-12-15 12:09 | W.PN.CRS1 ---
Today's Communication / Plan
-
NGT out
Continue sips/chips, okay for p.o. meds
Assessment/Plan
-
POD 2 ex lap, detorsion of small bowel with abdominal pexy
AFVSS
WBC 6.8 from 7.1, Hb 11.1 from 12.2, NGT�225 mL dark gastric quality, removed at bedside
�Continue sips/ice chips for now
� Continue PPI daily for gastric irritation from NGT
�Continue DVT PPx with subQ heparin
�Continue pain control with Tylenol and Dilaudid as needed; subQ, as needed
-OOB/IS, ambulate BID
�Appreciate hospitalist
Subjective Data
Procedure
12/13/23 Exploratory laparotomy, detorsion of volvulus, rigid proctoscopy and suture pexy
Subjective Data
Date of Service: December 15, 2023
No overnight events.
Pain controlled.
Denies nausea/vomiting. Tolerating diet.
+flatus (once) +BMs (x 2�liquid) +voiding
Pt is OOB.
Objective Data
-
Vital Signs
Temp Pulse Resp BP Pulse Ox
98 F 73 16 118/55 94
12/15/23 07:25 12/15/23 07:31 12/15/23 07:31 12/15/23 07:25 12/15/23 07:31
Intake & Output
12/14/23 12/15/23 12/16/23
06:59 06:59 06:59
Intake Total 1430 / 1430 1810 / 1810
Output Total 1200 / 1200 975 / 975
Balance 230 / 230 835 / 835
Intake:
Oral fluids 220 / 220 60 / 60
IV fluids (Total) 1060 / 1060 1560 / 1560
normosol 100 / 100
IV piggybacks 100 / 100
Amount instilled into GI Tube ( 150 / 150 90 / 90
Total)
[place] Sump 150 / 150 90 / 90
Output:
Gastrointestinal tube output ( 500 / 500 225 / 225
Total)
[place] Sump 500 / 500 225 / 225
Urine, Panda 700 / 700 750 / 750
Lab Results
12/15/23 07:47
12/15/23 07:47
Physical Exam
-
General: No Acute Distress and AOx3
HEENT: Grossly Normal
Abdomen: Soft, Distended (Mildly distended, improved from yesterday), Tender (Appropriately tender near incision), No Guarding and No Rebound
Neurological: Other (Moving all extremities, no gross deficits)
Skin: Warm and Dry
Wound: Dressing in Place (Aquacel in place)
[2023-12-15] MEDS: NSS 1000 IV (12:26)
[2023-12-15] MEDS: KCL 270 MEQ IV (14:15)
[2023-12-15 15:05] VITALS: BP 121/63
[2023-12-15] MEDS: TYLENOL 650 MG PO (20:19)
[2023-12-15 23:12] VITALS: BP 139/64
[2023-12-16] MEDS: NSS 1000 IV (02:35)
[2023-12-16] MEDS: TYLENOL 650 MG PO (05:00)
[2023-12-16 06:00] VITALS: BMI 20.6
[2023-12-16 06:49] LABS: Hematocrit 32.6 % (37.0-47.0); Mean Corp Hgb Conc. 33.7 g/dL (33.0-37.0); Mean Corpuscular Hgb 30.9 pg (27.0-31.0); Mean Corpuscular Volume 91.6 fL (81.0-99.0); Mean Platelet Volume 9.5 fL (7.4-10.4); Platelet Count 148 10^3/uL (130-400); Red Blood Cell Count 3.56 10^6/uL (4.20-5.40); Red Cell Dist. Width 13.4 % (11.5-14.5); White Blood Cell Count 4.7 10^3/uL (4.8-10.8)
[2023-12-16 07:10] VITALS: BP 147/69
[2023-12-16 07:21] LABS: ALT (SGPT) 15 U/L (0-35); AST (SGOT) 30 U/L (14-36); Albumin 3.2 g/dl (3.5-5.0); Alkaline Phosphatase 50 U/L (38-126); Blood Urea Nitrogen 13 mg/dl (7-17); Calcium 8.5 mg/dl (8.4-10.2); Carbon Dioxide 23 mmol/L (22-30); Chloride 105 mmol/L (98-107); Estimated Creatinine Clearance 58 ml/min; Glucose 85 mg/dl (70-99); Magnesium 1.9 mg/dl (1.6-2.3); Potassium 3.7 mmol/L (3.5-5.1); Sodium 135 mmol/L (135-145); Total Bilirubin 2.3 mg/dl (0.2-1.3); Total Protein 5.4 g/dl (6.3-8.2); eGFR > 60.00
[2023-12-16] MEDS: ADVAIR HFA 115/21 MCG INHALER 2 PUFF INH ×2 (08:05→19:52)
--- NOTE | 2023-12-16 08:26 | W.PN.HOSP.TC ---
Today's Communication/Plan
-
check for C.Diff
advance diet as per CRS
Assessment / Plan
Assessment / Plan
83F HX recurrent SBO, Laparotomy with reduction of volvulus, tube decompression and suture pexy on 03/01/23, now presents for abdominal pain, noted to have small bowel volvulus without bowel ischemia. Patient underwent Exploratory laparotomy,
detorsion of volvulus, rigid proctoscopy and suture pexy.
# Small bowel obstruction
-no evidence of bowel threat/compromise.
� S/p Exploratory laparotomy 12/12, detorsion of volvulus, rigid proctoscopy and suture pexy.
- Operative findings include small bowel volvulus. Small bowel proximal to the anastomosis was sutured to the right lateral gutter.
-WBC 11.8-->10.1-->7.1-->6.8-->4.7
-tolerating removal of NGT
-Remains on meds, sips/chips
-IV PPI BID
- Pain Control
-early Ambulation
advance diet as per CRS
Pt states passing liquid stool, minimal flatus. Pt with hx of Crohn's, will test for C.Diff, though unlikely
# Hyperbilirubinemia
� Appears chronic
� Follow-up direct bili: .5
�Follow-up outpatient
HX asthma
-Not in acute exacerbation, lungs are clear
-Fluticasone continued
HX Crohn disease
-resume oral medication - montelukast
-H/O colectomy x5, Anorectal Crohn's disease
-H/O perianal fistula repair
#Benign 9 mm right lower lobe pulmonary nodule
DVT Px: SQH
Code: Full
Anticipated Discharge: > 48 hours
Subjective/Interval History
-
Date of Service: December 16, 2023
Passing liquidy stool, small amount of flatus, intermittent pain
Objective Data
-
Labs:
Laboratory Results
12/16/23
05:52
WBC 4.7 L
Hgb 11.0 L
Hct 32.6 L
Plt Count 148
Sodium 135
Potassium 3.7
Chloride 105
Carbon Dioxide 23
BUN 13
Creatinine 0.6
Glucose 85
Calcium 8.5
Total Bilirubin 2.3 H
AST 30
ALT 15
Alkaline Phosphatase 50
Vital Signs:
Vital Signs
Temp Pulse Resp BP Pulse Ox
97.8 F 76 16 147/69 96
12/16/23 07:10 12/16/23 08:19 12/16/23 08:19 12/16/23 07:10 12/16/23 08:19
I&O
12/15/23 12/16/23 12/17/23
06:59 06:59 06:59
Intake Total 1810 / 1810 1150 / 1150
Output Total 975 / 975 600 / 600
Balance 835 / 835 550 / 550
Review of Systems
-
History Source: Patient and Coordinated Provider
Constitutional: Denies Fever
EENT: Reports No Symptoms Reported
Respiratory: Reports No Symptoms; Denies Trouble Breathing
Cardiac: Reports No Symptoms; Denies Chest Pain
Abdomen/GI: Reports Abdominal Pain (intermittent) and Diarrhea (liquidy stool); Denies Nausea or Vomiting
Genitourinary: Reports No Symptoms
Neuro: Reports No Symptoms
Physical Exam
-
General: Well Developed, Well Nourished and No Apparent Distress
HEENT: Normocephalic, Atraumatic and Moist Mucous Membranes
Respiratory: Clear to Auscultation; Negative Wheezes, Rales or Rhonchi
Cardiac: Regular Rhythm and S1/S2
GI: Soft, Nondistended and Tender (mild); Negative Normal Bowel Sounds (minimal BS) or Distended
Musculoskeletal: No Clubbing, No Cyanosis and No Edema
Skin: Dry
[2023-12-16] MEDS: PROTONIX IV 40 MG IV ×2 (08:36→19:59)
[2023-12-16] MEDS: NSS (PRESERVATIVE FREE) 10 ML IV ×2 (08:37→19:59)
[2023-12-16] MEDS: HEPARIN 5000 UNITS SC ×2 (08:38→19:55)
[2023-12-16] MEDS: D5/0.45%NSS with KCL 20 MEQ 1000 IV ×2 (10:00→22:55)
--- NOTE | 2023-12-16 10:37 | W.PN.CRS1 ---
Today's Communication / Plan
-
full liquids
Assessment/Plan
-
POD#3 ex lap, detorsion of small bowel with abdominal pexy
AVFVSS
WBC 4.7, Hgb 9.0 from 11.0 from 11.1.
-Advance diet to fulls
-DC IVFs when tolerating po intake
-Continue DVT prophylaxis with heparin subq
-OOB as tolerated
-C.diff pending
-Appreciate hospitalist
Subjective Data
Procedure
12/13/23 Exploratory laparotomy, detorsion of volvulus, rigid proctoscopy and suture pexy
Subjective Data
Date of Service: December 16, 2023
Patient states she had some abdominal cramping pain this morning which comes and goes. She has liquid stool when she stands. She denies nausea or vomiting. She has flatus. She is hungry.
Objective Data
-
Vital Signs
Temp Pulse Resp BP Pulse Ox
97.8 F 76 16 147/69 96
12/16/23 07:10 12/16/23 08:19 12/16/23 08:19 12/16/23 07:10 12/16/23 08:19
Intake & Output
12/15/23 12/16/23 12/17/23
06:59 06:59 06:59
Intake Total 1810 / 1810 1150 / 1150
Output Total 975 / 975 600 / 600
Balance 835 / 835 550 / 550
Intake:
Oral fluids 60 / 60 480 / 480
IV fluids (Total) 1560 / 1560 400 / 400
IV piggybacks 100 / 100 270 / 270
Amount instilled into GI Tube ( 90 / 90
Total)
[place] Sump 90 / 90
Output:
Gastrointestinal tube output ( 225 / 225
Total)
[place] Sump 225 / 225
Urine, Panda 750 / 750
Urine, Voided 600 / 600
Other:
Number of approximated MODERATE 3
amounts of urine
Number of unmeasured liquid
stools
Rectum 3
Lab Results
12/16/23 05:52
12/16/23 05:52
Physical Exam
-
General: No Acute Distress and AOx3
Abdomen: Soft, Distended (mild) and Tender (mild near incision)
Skin: Warm and Dry
Incision: Clear, Dry, Intact
[2023-12-16 15:10] VITALS: BP 116/63
--- NOTE | 2023-12-16 16:54 | CM ---
Diet advanced to full liquids, IVFs will D/C when tolerating po intake. Therapy recommending HH vs STR. Will await medical progression and additional therapy recommendations to determine suitable discharge plan of care. .
[2023-12-16 23:17] VITALS: BP 132/73
[2023-12-17 05:32] VITALS: BMI 20.4
[2023-12-17 07:10] VITALS: BP 120/73
[2023-12-17 07:33] LABS: % Basophils 0.4 % (0-2); % Eosinophils 5.8 % (0-6); % Immature Granulocytes 0.4 % (0-0.5); % Lymphocytes 27.9 % (20.5-51.1); % Monocytes 10.7 % (1.7-9.3); % Neutrophils 54.8 % (42.2-75.2); Absolute Eosinophils 0.3 10^3/uL (0-0.7); Absolute Lymphocytes 1.4 10^3/uL (1.2-3.4); Absolute Monocytes 0.5 10^3/uL (0.1-0.6); Absolute Neutrophils 2.7 10^3/uL (1.4-6.5); Hematocrit 36.2 % (37.0-47.0); Hemoglobin 12.4 g/dL (12.0-16.0); Mean Corp Hgb Conc. 34.3 g/dL (33.0-37.0); Mean Corpuscular Hgb 30.5 pg (27.0-31.0); Mean Corpuscular Volume 89.2 fL (81.0-99.0); Nucleated Red Blood Cells % 0 %; Platelet Count 165 10^3/uL (130-400); Red Blood Cell Count 4.06 10^6/uL (4.20-5.40); Red Cell Dist. Width 13.2 % (11.5-14.5); White Blood Cell Count 4.8 10^3/uL (4.8-10.8)
[2023-12-17] MEDS: ADVAIR HFA 115/21 MCG INHALER 2 PUFF INH ×2 (07:49→19:26)
[2023-12-17] MEDS: HEPARIN 5000 UNITS SC ×2 (08:38→21:00)
[2023-12-17] MEDS: PROTONIX IV 40 MG IV (08:38)
[2023-12-17] MEDS: NSS (PRESERVATIVE FREE) 10 ML IV (08:38)
[2023-12-17 10:16] LABS: Blood Urea Nitrogen 8 mg/dl (7-17); Carbon Dioxide 27 mmol/L (22-30); Chloride 103 mmol/L (98-107); Estimated Creatinine Clearance 58 ml/min; Glucose 139 mg/dl (70-99); Potassium 3.9 mmol/L (3.5-5.1); Sodium 138 mmol/L (135-145); eGFR > 60.00
--- NOTE | 2023-12-17 10:58 | W.PN.HOSP.TC ---
Today's Communication/Plan
-
CM input for dispo planning
Assessment / Plan
Assessment / Plan
83F HX recurrent SBO, Laparotomy with reduction of volvulus, tube decompression and suture pexy on 03/01/23, now presents for abdominal pain, noted to have small bowel volvulus without bowel ischemia. Patient underwent Exploratory laparotomy,
detorsion of volvulus, rigid proctoscopy and suture pexy.
# Small bowel obstruction
-no evidence of bowel threat/compromise.
� S/p Exploratory laparotomy 12/12, detorsion of volvulus, rigid proctoscopy and suture pexy.
- Operative findings include small bowel volvulus. Small bowel proximal to the anastomosis was sutured to the right lateral gutter.
-WBC 11.8-->10.1-->7.1-->6.8-->4.7-->4.8
-tolerating removal of NGT
-Remains on meds, diet just advanced to low residue
-IV PPI BID
- Pain Control
-early Ambulation
advance diet as per CRS
Pt states passing liquid stool, increased, but still diminished flatus. Pt with hx of Crohn's, neg test for C.Diff
# Hyperbilirubinemia
� Appears chronic
� Follow-up direct bili: .5
�Follow-up outpatient
4.7-->3.1-->2.3
HX asthma
-Not in acute exacerbation, lungs are clear
-Fluticasone continued
HX Crohn disease
-resume oral medication - montelukast
-H/O colectomy x5, Anorectal Crohn's disease
-H/O perianal fistula repair
#Benign 9 mm right lower lobe pulmonary nodule
DVT Px: SQH
Code: Full
Anticipated Discharge: 24 - 48 hours
Subjective/Interval History
-
Date of Service: December 17, 2023
In good spirits, starting to pass some flatus
Objective Data
-
Labs:
Laboratory Results
12/17/23 12/17/23
06:27 09:10
WBC 4.8
Hgb 12.4
Hct 36.2 L
Plt Count 165
Sodium Cancelled 138
Potassium Cancelled 3.9
Chloride Cancelled 103
Carbon Dioxide Cancelled 27
BUN Cancelled 8
Creatinine Cancelled 0.6
Glucose Cancelled 139 H
Calcium Cancelled 9.0
Vital Signs:
Vital Signs
Temp Pulse Resp BP Pulse Ox
97.8 F 72 16 120/73 97
12/17/23 07:10 12/17/23 08:04 12/17/23 08:04 12/17/23 07:10 12/17/23 08:04
I&O
12/16/23 12/17/23 12/18/23
06:59 06:59 06:59
Intake Total 1150 / 1150 2400 / 2400
Output Total 600 / 600
Balance 550 / 550 2400 / 2400
Review of Systems
-
History Source: Patient and Coordinated Provider
Constitutional: Denies Fever
EENT: Reports No Symptoms Reported
Respiratory: Reports No Symptoms; Denies Trouble Breathing
Cardiac: Reports No Symptoms; Denies Chest Pain
Abdomen/GI: Reports Abdominal Pain (intermittent) and Diarrhea (liquidy stool); Denies Nausea or Vomiting
Genitourinary: Reports No Symptoms
Neuro: Reports No Symptoms
Physical Exam
-
General: Well Developed, Well Nourished and No Apparent Distress
HEENT: Normocephalic, Atraumatic and Moist Mucous Membranes
Respiratory: Clear to Auscultation; Negative Wheezes, Rales or Rhonchi
Cardiac: Regular Rhythm and S1/S2
GI: Soft, Nondistended and Tender (mild); Negative Normal Bowel Sounds (more active BS, though still somewhat reduced) or Distended
Musculoskeletal: No Clubbing, No Cyanosis and No Edema
Skin: Dry
[2023-12-17] MEDS: D5/0.45%NSS with KCL 20 MEQ IV (11:50)
--- NOTE | 2023-12-17 12:39 | CM ---
Addendum entered by Luisa Duval 12/17/23 17:02:
PT re-evaluated patient this afternoon and recommends short term skilled rehab
Addendum entered by Luisa Duval 12/17/23 14:10:
Met with patient at bedside to discuss discharge plan of short term skilled bed stay
Patient's preference is [facility]. Referral sent via phone to Mellisa in Admissions #[phone]; clinicals sent via [facility]
Plan: discharge tomorrow to short term skilled bed for post-op wound management and PT
Addendum entered by Luisa Duval 12/17/23 12:42:
Per Attending, patient requires post-op wound management
Will provide list of Short Term skilled facilities and obtain preferences for referral
Original Note:
PT will re-evaluate patient to assist with appropriate level of care and discharge plan
[2023-12-17 12:49] VITALS: BMI 20.4
--- NOTE | 2023-12-17 14:00 | W.PN.CRS1 ---
Today's Communication / Plan
-
Advance to low residue
Assessment/Plan
-
POD 4 ex lap, detorsion of small bowel with abdominal pexy
AFVSS
WBC 4.8 from 4.7, Hb 12.4 from 11.0
�Advance to Low residue
�Okay to stop PPI
�Continue DVT PPx with subQ heparin
�Continue pain control with Tylenol and Dilaudid as needed; subQ, as needed
-OOB/IS, ambulate BID
�Appreciate hospitalist
Dispo�due to intermittent gas pains, would hold today and consider DC tomorrow
Subjective Data
Procedure
12/13/23 Exploratory laparotomy, detorsion of volvulus, rigid proctoscopy and suture pexy
Subjective Data
Date of Service: December 17, 2023
No overnight events. Had some gas pains, but was relieved after lying down and passing significant amount of flatus.
Pain otherwise controlled.
Denies nausea/vomiting. Tolerating diet.
+flatus +BMs (Still liquid, difficult to control) +voiding
Pt is OOB.
Objective Data
-
Vital Signs
Temp Pulse Resp BP Pulse Ox
97.8 F 72 16 120/73 97
12/17/23 07:10 12/17/23 08:04 12/17/23 08:04 12/17/23 07:10 12/17/23 08:04
Intake & Output
12/16/23 12/17/23 12/18/23
06:59 06:59 06:59
Intake Total 1150 / 1150 2400 / 2400
Output Total 600 / 600
Balance 550 / 550 2400 / 2400
Intake:
Oral fluids 480 / 480 1440 / 1440
IV fluids (Total) 400 / 400 960 / 960
IV piggybacks 270 / 270
Output:
Urine, Voided 600 / 600
Other:
Number of approximated SMALL 8
amounts of urine
Number of approximated MODERATE 3 5
amounts of urine
Number of unmeasured liquid
stools
Rectum 3 5
Lab Results
12/17/23 06:27
12/17/23 09:10
Physical Exam
-
General: No Acute Distress and AOx3
HEENT: Grossly Normal
Abdomen: Soft, Distended (Minimally distended, not tympanitic), Tender (Appropriately tender near incision), No Guarding and No Rebound
Wound: No Signs of Infection, Dressing in Place (With Aquacel) and No Skin Erythema
[2023-12-17 15:16] VITALS: BP 147/77
[2023-12-17 15:41] VITALS: BP 147/72; PULSE 75; O2SAT 97
[2023-12-17] MEDS: PROTONIX 40 MG PO (21:00)
[2023-12-17 23:30] VITALS: BP 141/76
[2023-12-18 06:00] VITALS: BMI 19.8
[2023-12-18 06:41] LABS: % Basophils 0.4 % (0-2); % Eosinophils 5.3 % (0-6); % Immature Granulocytes 0.6 % (0-0.5); % Lymphocytes 22.8 % (20.5-51.1); % Monocytes 10.2 % (1.7-9.3); % Neutrophils 60.7 % (42.2-75.2); Absolute Eosinophils 0.3 10^3/uL (0-0.7); Absolute Lymphocytes 1.2 10^3/uL (1.2-3.4); Absolute Monocytes 0.5 10^3/uL (0.1-0.6); Absolute Neutrophils 3.1 10^3/uL (1.4-6.5); Hematocrit 37.4 % (37.0-47.0); Hemoglobin 12.1 g/dL (12.0-16.0); Mean Corp Hgb Conc. 32.4 g/dL (33.0-37.0); Mean Corpuscular Hgb 30.3 pg (27.0-31.0); Mean Corpuscular Volume 93.7 fL (81.0-99.0); Mean Platelet Volume 9.3 fL (7.4-10.4); Nucleated Red Blood Cells % 0 %; Platelet Count 144 10^3/uL (130-400); Red Blood Cell Count 3.99 10^6/uL (4.20-5.40); Red Cell Dist. Width 13.4 % (11.5-14.5); White Blood Cell Count 5.1 10^3/uL (4.8-10.8)
[2023-12-18 07:05] VITALS: BP 102/68
[2023-12-18 07:17] LABS: ALT (SGPT) 18 U/L (0-35); AST (SGOT) 28 U/L (14-36); Albumin 3.6 g/dl (3.5-5.0); Alkaline Phosphatase 66 U/L (38-126); Blood Urea Nitrogen 13 mg/dl (7-17); Calcium 9.2 mg/dl (8.4-10.2); Carbon Dioxide 26 mmol/L (22-30); Chloride 103 mmol/L (98-107); Estimated Creatinine Clearance 57 ml/min; Glucose 97 mg/dl (70-99); Magnesium 1.6 mg/dl (1.6-2.3); Potassium 4.2 mmol/L (3.5-5.1); Sodium 136 mmol/L (135-145); Total Bilirubin 1.4 mg/dl (0.2-1.3); Total Protein 6.2 g/dl (6.3-8.2); eGFR > 60.00
[2023-12-18] MEDS: ADVAIR HFA 115/21 MCG INHALER 2 PUFF INH (07:45)
[2023-12-18] MEDS: PROTONIX 40 MG PO (08:22)
[2023-12-18] MEDS: HEPARIN 5000 UNITS SC (08:22)
--- NOTE | 2023-12-18 09:59 | W.PN.CRS1 ---
Today's Communication / Plan
-
Okay for DC
Assessment/Plan
-
POD 5 ex lap, detorsion of small bowel with abdominal pexy
AFVSS
WBC 5.1 from 4.8, Hb 12.1 from 12.4
�Cont Low residue
�Okay to stop PPI
�Continue DVT PPx with subQ heparin
�Continue pain control with Tylenol and Dilaudid as needed
-OOB/IS, ambulate BID
�Appreciate hospitalist
Dispo�per PT, recommending half-way for discharge; okay for DC today
Subjective Data
Procedure
12/13/23 Exploratory laparotomy, detorsion of volvulus, rigid proctoscopy and suture pexy
Subjective Data
Date of Service: December 18, 2023
No overnight events.
Pain controlled. Occasional cramps.
Denies nausea/vomiting. Tolerating diet.
+flatus +BMs (still liquidy, difficult to control) +voiding
Pt is OOB.
Objective Data
-
Vital Signs
Temp Pulse Resp BP Pulse Ox
97.8 F 76 16 102/68 96
12/18/23 07:05 12/18/23 08:03 12/18/23 08:03 12/18/23 07:05 12/18/23 08:03
Intake & Output
12/17/23 12/18/23 12/19/23
06:59 06:59 06:59
Intake Total 2400 / 2400 1979
Balance 2400 / 2400 1979
Intake:
Oral fluids 1440 / 1440 1979
IV fluids (Total) 960 / 960
Other:
Number of approximated SMALL 8 1
amounts of urine
Number of approximated MODERATE 5 4
amounts of urine
Number of unmeasured liquid
stools
Rectum 5 5
Lab Results
12/18/23 05:47
12/18/23 05:47
Physical Exam
-
General: No Acute Distress and AOx3
HEENT: Grossly Normal
Abdomen: Soft, Distended (Minimally distended, significantly improved from yesterday), Non Tender, No Guarding and No Rebound
Skin: Warm and Dry
Wound: No Signs of Infection, No Skin Erythema and Other (Aquacel removed, incision well-approximated without erythema or drainage; gio in place)
--- NOTE | 2023-12-18 12:13 | W.PN.CRS1 ---
Today's Communication / Plan
-
ok for d/c
Assessment/Plan
-
POD 6 ex lap, detorsion of small bowel with abdominal pexy
AFVSS
WBC 5.1 from 5.1, Hb 12.1 from 12.1
�Cont Low residue diet
�Okay to stop PPI
�Continue DVT PPx with subQ heparin
�Continue pain control with Tylenol and Dilaudid as needed
-OOB/IS, ambulate BID
�Appreciate hospitalist
- Okay to resume home bowel medications
- Okay d/c from our perspective. Follow up with Dr. Armas in 2 weeks.
Subjective Data
Procedure
12/13/23 Exploratory laparotomy, detorsion of volvulus, rigid proctoscopy and suture pexy
Subjective Data
Date of Service: December 18, 2023
Patient states she is having diarrhea still. She has some abdominal cramps but overall feels better. She is less bloated. She denies nausea or vomiting.
Objective Data
-
Vital Signs
Temp Pulse Resp BP Pulse Ox
97.8 F 76 16 102/68 96
12/18/23 07:05 12/18/23 08:03 12/18/23 08:03 12/18/23 07:05 12/18/23 08:03
Intake & Output
12/17/23 12/18/23 12/19/23
06:59 06:59 06:59
Intake Total 2400 / 2400 1979
Balance 2400 / 2400 1979
Intake:
Oral fluids 1440 / 1440 1979
IV fluids (Total) 960 / 960
Other:
Number of approximated SMALL 8 1
amounts of urine
Number of approximated MODERATE 5 4
amounts of urine
Number of unmeasured liquid
stools
Rectum 5 5
Lab Results
12/18/23 05:47
12/18/23 05:47
Physical Exam
-
General: No Acute Distress and AOx3
Abdomen: Soft, Non Distended and Non Tender
Skin: Warm
Incision: Clear, Dry, Intact
--- NOTE | 2023-12-18 13:00 | W.PN.HOSP.TC ---
Today's Communication/Plan
-
dc now
Assessment / Plan
Assessment / Plan
83F HX recurrent SBO, Laparotomy with reduction of volvulus, tube decompression and suture pexy on 03/01/23, now presents for abdominal pain, noted to have small bowel volvulus without bowel ischemia. Patient underwent Exploratory laparotomy,
detorsion of volvulus, rigid proctoscopy and suture pexy.
# Small bowel obstruction
-no evidence of bowel threat/compromise.
� S/p Exploratory laparotomy 12/12, detorsion of volvulus, rigid proctoscopy and suture pexy.
- Operative findings include small bowel volvulus. Small bowel proximal to the anastomosis was sutured to the right lateral gutter.
-WBC 11.8-->10.1-->7.1-->6.8-->4.7-->4.8-->5.1
-tolerating removal of NGT
-Remains on meds, diet advanced to low residue and she is tolerating
-IV PPI BID changed to oral
- Pain Control
-early Ambulation
advanced diet as per CRS
Pt states passing liquid stool, increased, but still diminished flatus. Pt with hx of Crohn's, neg test for C.Diff, states she has short bowel due to prior surgeries and liquidy stool is her baseline
# Hyperbilirubinemia
� Appears chronic, most likely at baseline
� Follow-up direct bili: .5
�Follow-up outpatient
4.7-->3.1-->2.3-->1.4
HX asthma
-Not in acute exacerbation, lungs are clear
-Fluticasone continued
HX Crohn disease
-resume oral medication - montelukast
-H/O colectomy x5, Anorectal Crohn's disease
-H/O perianal fistula repair
#Benign 9 mm right lower lobe pulmonary nodule
DVT Px: SQH
Code: Full
dc to SNF
see dictated note
More than 30 minutes spent in discharge including
Final examination of the patient
Summarizing hospital stay
Instructions for continuing care to all relevant caregivers
Preparation of discharge records, prescriptions, and referral forms
Total time spent (in minutes): 45
Anticipated Discharge: Today
Subjective/Interval History
-
Date of Service: December 18, 2023
Tolerating diet, has not required narcotic analgesics >48hrs
Objective Data
-
Labs:
Laboratory Results
12/18/23
05:47
WBC 5.1
Hgb 12.1
Hct 37.4
Plt Count 144
Sodium 136
Potassium 4.2
Chloride 103
Carbon Dioxide 26
BUN 13
Creatinine 0.6
Glucose 97
Calcium 9.2
Total Bilirubin 1.4 H
AST 28
ALT 18
Alkaline Phosphatase 66
Vital Signs:
Vital Signs
Temp Pulse Resp BP Pulse Ox
97.8 F 76 16 102/68 96
12/18/23 07:05 12/18/23 08:03 12/18/23 08:03 12/18/23 07:05 12/18/23 08:03
I&O
12/17/23 12/18/23 12/19/23
06:59 06:59 06:59
Intake Total 2400 / 2400 1979
Balance 2400 / 2400 1979
Review of Systems
-
History Source: Patient and Coordinated Provider
Constitutional: Denies Fever
EENT: Reports No Symptoms Reported
Respiratory: Reports No Symptoms; Denies Trouble Breathing
Cardiac: Reports No Symptoms; Denies Chest Pain
Abdomen/GI: Reports Abdominal Pain (intermittent) and Diarrhea (liquidy stool); Denies Nausea or Vomiting
Genitourinary: Reports No Symptoms
Neuro: Reports No Symptoms
Physical Exam
-
General: Well Developed, Well Nourished and No Apparent Distress
HEENT: Normocephalic, Atraumatic and Moist Mucous Membranes
Respiratory: Clear to Auscultation; Negative Wheezes, Rales or Rhonchi
Cardiac: Regular Rhythm and S1/S2
GI: Soft, Nondistended, Normal Bowel Sounds and Tender (esentialy resolved); Negative Distended
Musculoskeletal: No Clubbing, No Cyanosis and No Edema
Skin: Dry
--- NOTE | 2023-12-18 13:48 | W.DS.TRANS ---
DC Summary - Manager Information
-
Discharge Instructions:
Discharge Diagnosis/Procedures Small Bowel Obstruction
Diet Low Residue
Activity No strenuous activity
Additional Activity No lifting over 10lbs (gallon of milk)
Driving Restrictions No driving
Bathing Restrictions OK to Shower
Wound Care Keren will be removed at your office
appointment with Dr. Armas.
Instructions: Low Fiber Diet
Stand-Alone Forms:
Changes to Home Medications: No
Discharge Medications:
DC Medications w/original date entered in [facility]
biotin 5,000 mcg disintegrating tablet 5,000 mcg PO HS Supplement 11/26/17
calcium citrate 315 mg calcium-vitamin D3 6.25 mcg (250 unit) tablet (Citracal + Vitamin D Maximum) 1 ea PO QPM Supplement 11/26/17
cetirizine 10 mg tablet 10 mg PO HS Allergies 11/26/17
fluticasone propionate 50 mcg/actuation nasal spray,suspension 1 spray intranasal HS Allergies 11/26/17
guaifenesin 600 mg tablet, extended release 12 hr (Mucus Relief ER) 600 mg PO DAILYPRN PRN cough/congestion 11/26/17
omeprazole 20 mg capsule,delayed release 20 mg PO HS GERD 11/26/17
azelastine 137 mcg (0.1 %) nasal spray 1 spray intranasal DAILY Allergies 03/01/23
cholecalciferol (vitamin D3) 125 mcg (5,000 unit) tablet (Vitamin D3) 125 mcg PO HS Supplement 03/01/23
estradiol 0.025 mg/24 hr weekly transdermal patch 1 patch transdermal TU Hormone replacement 03/01/23
fluticasone 250 mcg-salmeterol 50 mcg/dose blistr powdr for inhalation (Wixela Inhub) 1 inh inhalation R HS Allergies 03/01/23
montelukast 10 mg tablet 10 mg PO HS Allergies 03/01/23
progesterone micronized 100 mg capsule 100 mg PO HS Hormone replacement 03/01/23
albuterol sulfate 90 mcg/actuation aerosol inhaler 2 puff inhalation R Q6 PRN sob/wheezing 12/12/23
cholestyramine (with sugar) 4 gram powder for susp in a packet 1 ea PO DAILY 12/12/23
cyanocobalamin (vitamin B-12) 1,000 mcg tablet 1,000 mcg PO HS 12/12/23
famotidine 20 mg tablet 20 mg PO DAILY PRN heartburn/indigestion 12/12/23
psyllium 1 packet PO HS 12/12/23
Home Medication Changes
Pending Results: No
--- NOTE | 2023-12-18 14:50 | CM ---
Patient has been medically cleared for discharge to [facility] for alf and rehab services. Son will transport to facility.
NURSE TO NURSE REPORT # [phone]
FAX # [phone]
[2023-12-18 15:05] VITALS: BP 137/68
--- NOTE | 2023-12-18 15:44 | PTCARENOTE ---
Discharge instructions printed along with 'low fiber diet' education packet, and given to patient. Porsche at '[facility]' called the unit and report given. Patient's son to picking tech patient at [phone].
== END 2023-12-18 15:15 | DRG 330 ==
LOC: 2 NORTH 01:37
PROVIDERS: Clinical Nurse Specialist Family Health; Internal Medicine; ADMITTING PHYSICIAN Internal Medicine; ATTENDING PHYSICIAN Internal Medicine; CONSULT PHYSICIAN Surgery; EMERGENCY PHYSICIAN Emergency Medicine; FAMILY PHYSICIAN Family Medicine
PROC: 0D9N8ZZ Drainage of Sigmoid Colon, Via Natural or Artificial Opening Endoscopic (ICD-10-PCS; 2023-12-13)
PROC: 0DS80ZZ Reposition Small Intestine, Open Approach (ICD-10-PCS; 2023-12-13)
DX: K56.2 Volvulus (principal); K50.10 Crohn's disease of large intestine without complications; J45.909 Unspecified asthma, uncomplicated; K21.9 Gastro-esophageal reflux disease without esophagitis; E80.6 Other disorders of bilirubin metabolism; E87.6 Hypokalemia; K80.20 Calculus of gallbladder without cholecystitis without obstruction; Z98.0 Intestinal bypass and anastomosis status; Z90.49 Acquired absence of other specified parts of digestive tract; Z79.899 Other long term (current) drug therapy
CPT/HCPCS: 74177; 80048; 80053; 82248; 83605; 83735; 85025; 85027; 85610; 86850; 86900; 86901; 87324; 87449; 94640; 96361; 96374; 96375; 97116; 97162; 99285; J1335; Q9967

== ENCOUNTER → 2024-01-01 14:55 | Outpatient (REF) | payer MEDICARE, OTHER, SELFPAY | LOC: WDC 14:55 | PROVIDERS: ATTENDING PHYSICIAN Obstetrics & Gynecology; FAMILY PHYSICIAN Family Medicine | DX: R92.2 Inconclusive mammogram (principal) | CPT/HCPCS: 76641 ==

== ENCOUNTER 2024-06-21 05:20 | Inpatient (IN) | payer MEDICARE, OTHER, SELFPAY ==
[2024-06-20 22:25] VITALS: BP 150/88
--- NOTE | 2024-06-20 22:30 | EDRN ---
Pt asking to wait to have IV and blood work at same time.
[2024-06-21] VITALS (18 sets, daily range): BP systolic 97–140; BP diastolic 53–78; BMI 18.8; BMI 18.1
[2024-06-21 00:59] LABS: % Basophils 0.4 % (0-2); % Eosinophils 0.8 % (0-6); % Immature Granulocytes 1.3 % (0-0.5); % Lymphocytes 17.7 % (20.5-51.1); % Monocytes 6.5 % (1.7-9.3); % Neutrophils 73.3 % (42.2-75.2); Absolute Eosinophils 0.1 10^3/uL (0-0.7); Absolute Immature Granulocytes 0.1 10^3/uL (0-0.05); Absolute Lymphocytes 1.8 10^3/uL (1.2-3.4); Absolute Monocytes 0.6 10^3/uL (0.1-0.6); Absolute Neutrophils 7.2 10^3/uL (1.4-6.5); Hematocrit 43.1 % (37.0-47.0); Hemoglobin 14.8 g/dL (12.0-16.0); Mean Corp Hgb Conc. 34.3 g/dL (33.0-37.0); Mean Corpuscular Hgb 31.3 pg (27.0-31.0); Mean Corpuscular Volume 91.1 fL (81.0-99.0); Mean Platelet Volume 9.2 fL (7.4-10.4); Nucleated Red Blood Cells % 0 %; Platelet Count 216 10^3/uL (130-400); Red Blood Cell Count 4.73 10^6/uL (4.20-5.40); Red Cell Dist. Width 13.6 % (11.5-14.5); White Blood Cell Count 9.9 10^3/uL (4.8-10.8)
[2024-06-21 01:08] LABS: Lactic Acid 1.1 mmol/L (0.7-2.0)
[2024-06-21 01:09] LABS: ALT (SGPT) 32 U/L (0-35); AST (SGOT) 39 U/L (14-36); Albumin 5.1 g/dl (3.5-5.0); Alkaline Phosphatase 94 U/L (38-126); Blood Urea Nitrogen 17 mg/dl (7-17); Calcium 9.9 mg/dl (8.4-10.2); Carbon Dioxide 24 mmol/L (22-30); Chloride 99 mmol/L (98-107); Estimated Creatinine Clearance 45 ml/min; Glucose 99 mg/dl (70-99); Lipase 295 U/L (23-300); Potassium 4.1 mmol/L (3.5-5.1); Sodium 136 mmol/L (135-145); Total Bilirubin 7.5 mg/dl (0.2-1.3); Total Protein 8.5 g/dl (6.3-8.2); eGFR > 60.00
--- NOTE | 2024-06-21 01:45 | ED.GENMED ---
History of Present Illness
General
Chief Complaint: Abdominal Pain
Source: patient
Exam Limitations: none
Time Seen by Provider: 06/21/24 01:04
Nursing documentation reviewed up to this point in time: agreed with
History of Present Illness
History of Present Illness:
Pleasant 83-year-old female presents with abdominal distention and pain that has been present for approximately 1 day. Since Saturday she states that she has had the symptoms. Her last bowel movement was Saturday. Patient has a history of bowel
obstruction and states that this feels similar. Patient has had a history of sigmoid volvulus. She has also had a prior colectomy.
Vital signs are stable. Patient not hypoxic
Nursing note reviewed. I agree with nursing documentation up to this point in time.
Home Meds and allergies reviewed.
NUMBER AND COMPLEXITY OF PROBLEMS ADDRESSED AT THE ENCOUNTER
� Chronic conditions affecting care: Chronic elevated T. bili, Crohn's disease, acoustic neuroma and vertigo, renal calculi and stones, anemia, lithotripsy, colectomy,
Colectomy
� Acute Exacerbation and/or Progression of Chronic Illness:
� Differential Diagnosis includes: Bowel obstruction, volvulus, sigmoid volvulus
AMOUNT AND/OR COMPLEXITY OF DATA TO BE REVIEWED AND ANALYZED
I performed an independent evaluation of the following and my interpretation is:
EKG:
Pulse Ox: Not Hypoxic
[employer] Instructor: Sinus Rhythm
CT:
X-rays:
Ultrasound:
Laboratory Studies: 9.9
Other:
Review of other/old records: Discharge summary from 12/18/2023 that showed small bowel volvulus, colectomy, cholelithiasis, hypokalemia, history of Peyronie's disease. At that time she had an ex lap with detorsion of volvulus.
Clinical information was obtained by an independent historian:
Prescriptions/Medications Considered but not given:
Further testing considered but not performed:
RISK OF COMPLICATIONS AND/OR MORBIDITY OR MORTALITY OF PATIENT MANAGEMENT
Social determinants of health affecting care: Good Social Support
Discussion with other providers:
Escalation of care including admission/observation vs risk of discharge considered: After being observed in the emergency department, patient is stable for discharge.
CRITICAL CARE NOTE:
Total Time (exclusive of procedures):
Update:
Past History
Past History
ED Past Medical History: Asthma and Other (Vertigo, Crohns, Renal calculus, Anemia, Bowel obstructions. )
ED Past Surgical History: Appendectomy and Bowel resection (Colectomy X 5 rectal surgery, )
Social History
Tobacco: Non-smoker
Alcohol: None
Drug: None
Personal:
Living: with family
Phy Exam
General Physical Exam
General Presentation: well appearing and moderate distress
General age: appears stated age
General Skin: warm and dry
General Habitus: elderly
General Mental: alert
General Hydration: appears well hydrated
ENT Exam
ENT Exam: EOMI, pharynx normal, neck supple and normocephalic
Eye Exam
Eye Exam: PERRL, cornea clear and conjunctiva normal
Cardiovascular Exam
Cardiovascular Exam: regular rate/rhythm, no edema, no murmur and normal peripheral pulses
Pulmonary Exam
Pulmonary Exam: lungs clear, no respiratory distress, no rales, no crackles, no rhonchi, no stridor, no wheezing and no cough
Gastrointestinal Exam
Gastrointestinal Exam: soft, no pulsatile mass and distended
Palpation: generalized: Mild tenderness
Auscultation of Abdomen: high pitched tinkling
Neurological Exam
Neurological Exam: alert, oriented x3, no motor deficits and speech normal
Musculoskeletal Exam
Musculoskeletal Exam: full ROM and no edema
Skin Exam
Skin Exam: normal color, warm/dry, no rash and no petechia
Psychiatric Exam
Psychiatric Exam: normal mood/affect
Course
Orders/Labs/Results
Orders:
Orders
06/21/24 00:03
CT Abd/Pel (IV only)-DH only Urgent
Comment:
Reason For Exam: abdominal pain, history of sbo
06/21/24 00:26
Complete Blood Count/With Diff Urgent
Comprehensive Metabolic Panel Urgent
Lactic Acid Urgent
Lipase Urgent
06/21/24 01:36
NG Tube [GI tube insertion- Treatment] ONCE
HYDROmorphone [Dilaudid] 1 mg IV NOW STA
06/21/24 01:44
Ondansetron Injectable [Zofran] 4 mg .ROUTE .STK-MED ONE
06/21/24 01:47
Ondansetron Injectable [Zofran] 4 mg IV NOW STA
06/21/24 02:02
Lidocaine 2% [Lidocaine Uro-Jet 2%] 1 syringe .ROUTE .STK-MED ONE
06/21/24 02:52
Portable Chest Xray [CR Chest Portable - 1 View] Urgent
Comment:
Reason For Exam: ng tube placement
Reason Study Needs to be Portable: Unable to Transport
Abnormal Lab Results
06/21/24
00:26
MCH 31.3 H pg
(27.0-31.0)
Abs Immat Gran (auto) 0.1 H 10^3/uL
(0-0.05)
Absolute Neuts (auto) 7.2 H 10^3/uL
(1.4-6.5)
Immature Gran % 1.3 H %
(0-0.5)
Lymphocytes % 17.7 L %
(20.5-51.1)
Total Bilirubin 7.5 H mg/dl
(0.2-1.3)
AST 39 H U/L
(14-36)
Total Protein 8.5 H g/dl
(6.3-8.2)
Albumin 5.1 H g/dl
(3.5-5.0)
06/21/24 00:26
06/21/24 00:26
Vital Signs
Initial and Last Documented VS:
Initial Vital Signs
Temp Pulse Resp BP Pulse Ox
98.2 F 94 16 150/88 99
06/20/24 22:25 06/20/24 22:25 06/20/24 22:25 06/20/24 22:25 06/20/24 22:25
Last Documented Vital Signs
Temp Pulse Resp BP Pulse Ox
98.2 F 89 16 129/76 96
06/20/24 22:25 06/21/24 00:22 06/21/24 00:22 06/21/24 00:21 06/21/24 00:22
*Radiology
Radiology exam reviewed: radiology read reviewed
*Pulse Oximetry
Patient hypoxic: no
*Critical Care Note
Total Time (30-74mins, 75-104mins- exclusive of procedures): 30
comment:
Critical care statement: A total of 30 minutes of critical care time was provided for this patient. This time is separate from time utilized to perform the aforementioned documented procedures. Aggregate critical care time includes only time
during which I was engaged in work directly related to the patient's care, as described above, whether at the bedside or elsewhere in the Emergency Department.
Update Note
Update Note:
I spoke with Dr. Ricci prior to admission.He agrees with plan for NG tube and admission to hospitalist service. Vital signs are stable. Lactic acid is normal. Patient unstable for discharge. Patient to be admitted for further observation and
possible exploratory surgery.
ED Attending Note
-
Portions of this chart may have been created with voice recognition software.� Occasional wrong word or��sound alike� substitutions may have occurred due to the inherent limitations of voice recognition software.
Discharge Plan
Departure
Patient Disposition: Admit
Date of Disposition: 06/21/24
Time of Disposition: 02:30
Admit to: Telemetry
Presentation/result/management discussed w/ accepting MD/DO: Hospitalist
Discharge Problem:
Volvulus, SBO (small bowel obstruction), Hyperbilirubinemia
Prescriptions:
No Action
cetirizine 10 MG tablet
10 mg PO HS
omeprazole 20 MG capsule,delayed release(DR/EC)
20 mg PO HS
fluticasone propionate 1 SPRAY spray,suspension
1 spray intranasal HS
calcium citrate-vitamin D3 [Citracal + D Maximum] 1 EACH tablet
2 ea PO QPM
guaifenesin [Mucus Relief ER] 600 MG tablet extended release 12hr
600 mg PO DAILYPRN PRN (Reason: cough/congestion)
biotin 5,000 MCG tablet,disintegrating
5,000 mcg PO HS
fluticasone propion-salmeterol [Wixela Inhub] 250-50 mcg/dose Blister With Device
1 inh INHALATION R HS
estradiol 0.025 mg/24 hr Patch Weekly
1 patch TRANSDERMAL
Rx Instructions:
change on saturday, on right flank 06/21/2024
montelukast 10 mg Tablet
10 mg PO HS
azelastine 137 mcg (0.1 %) Aerosol,[place]
1 spray INTRANASAL DAILY
progesterone micronized 100 mg Capsule
100 mg PO HS
cholecalciferol (vitamin D3) [Vitamin D3] 125 mcg (5,000 unit) Tablet
125 mcg PO HS
cyanocobalamin (vitamin B-12) 1,000 mcg Tablet
1,000 mcg PO HS
famotidine 20 mg Tablet
20 mg PO DAILY PRN (Reason: heartburn/indigestion)
albuterol sulfate 90 mcg/actuation Hfa Aerosol Inhaler
2 puff INHALATION R Q6 PRN (Reason: sob/wheezing)
cholestyramine (with sugar) 4 gram powder in packet
1 ea PO BID
psyllium Packet
1 packet PO HS
Referrals:
Troy Diaz MD [Family Provider] -
Interventions
Interventions:
*Risk Screen - Suicide Last Done: 06/20/24 22:25
*General Assessment Last Done: 06/21/24 00:22
*Neglect/Abuse Screening Last Done: 06/20/24 22:25
*ED COVID-19 Vaccine History Last Done: 06/21/24 00:22
IB-Rtpejo-Cyguvkowlx Assessment Last Done: 06/21/24 00:22
Discharge Date and Time
Print Language: [place]
[2024-06-21] MEDS: ZOFRAN 4 MG IV ×2 (01:47→07:38)
[2024-06-21] MEDS: DILAUDID 1 MG IV (01:47)
--- NOTE | 2024-06-21 04:45 | HPS.HSE ---
Family Physician
-
Family Physician: Troy Diaz
Chief Complaint
-
Abd pain
History of Present Illness
Patient is an 83y F with PMH significant for Crohn's disease s/p remote total colectomy and recurrent small bowel volvulus who presents to ED complaining of abdominal pain. Patient states that pain started Saturday afternoon and has persisted.
She tried to 'ride it out' at home; however, her symptoms have not abated and she ultimately presented to the ED this evening for further evaluation and treatment. She denies any N/V.
Patient has had multiple prior similar episodes. She has had ex lap / volvulus reduction in 02/2023 and again in 11/2023.
This evening, patient noted that her pain seemed to improve somewhat here in the ED - even prior to receiving IV pain medication.
She has yet to pass any flatus or stool however.
Medical History
Past Medical History
Past Medical History: Reports Other
Additional Past Medical History:
Crohn disease
Small bowel obstruction
Recurrent small bowel volvulus
Asthma
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
Past Surgical History: Reports Other
Additional Past Surgical History:
Multiple colectomy
Rectal surgery
Appendectomy
Laparotomy with reduction of volvulus, tube decompression and suture pexy on 03/01/23.
Social History
Tobacco: Non-smoker
Alcohol: None
Drug: None
Family History
Family History: Not pertinent
Allergies / Home Medications
Allergies reflects when Allergies were last updated in [facility].
Home Medications with original date entered in [facility]
Allergy/Medication List:
Allergies
Allergy/AdvReac Type Severity Reaction Status Date / Time
codeine Allergy Unknown Verified 06/20/24 22:30
seasonal Allergy sneezing Uncoded 06/20/24 22:30
silk sutures Allergy abcess Uncoded 06/20/24 22:30
some dissolvable sutures Allergy Unknown Uncoded 06/20/24 22:30
Home Medications
biotin 5,000 mcg disintegrating tablet 5,000 mcg PO HS Supplement 11/26/17
calcium 315 mg (as citrate)-vitamin D3 6.25 mcg (250 unit) tablet (Citracal + Vitamin D Maximum) 2 ea PO QPM Supplement 11/26/17
cetirizine 10 mg tablet 10 mg PO HS Allergies 11/26/17
fluticasone propionate 50 mcg/actuation nasal spray,suspension 1 spray intranasal HS Allergies 11/26/17
guaifenesin 600 mg tablet, extended release 12 hr (Mucus Relief ER) 600 mg PO DAILYPRN PRN cough/congestion 11/26/17
omeprazole 20 mg capsule,delayed release 20 mg PO HS GERD 11/26/17
azelastine 137 mcg (0.1 %) nasal spray 1 spray intranasal DAILY Allergies 03/01/23
cholecalciferol (vitamin D3) 125 mcg (5,000 unit) tablet (Vitamin D3) 125 mcg PO HS Supplement 03/01/23
estradiol 0.025 mg/24 hr weekly transdermal patch 1 patch transdermal TU Hormone replacement 03/01/23
fluticasone 250 mcg-salmeterol 50 mcg/dose blistr powdr for inhalation (Wixela Inhub) 1 inh inhalation R HS Allergies 03/01/23
montelukast 10 mg tablet 10 mg PO HS Allergies 03/01/23
progesterone micronized 100 mg capsule 100 mg PO HS Hormone replacement 03/01/23
albuterol sulfate 90 mcg/actuation aerosol inhaler 2 puff inhalation R Q6 PRN sob/wheezing 12/12/23
cholestyramine (with sugar) 4 gram powder for susp in a packet 1 ea PO BID 12/12/23
cyanocobalamin (vitamin B-12) 1,000 mcg tablet 1,000 mcg PO HS 12/12/23
famotidine 20 mg tablet 20 mg PO DAILY PRN heartburn/indigestion 12/12/23
psyllium 1 packet PO HS 06/20/24
Review of Systems
-
History Source: Patient
A 12 point ROS was completed and negative except as noted: Yes
Constitutional: Denies Fever or Chills
Respiratory: Denies Cough or Trouble Breathing
Cardiac: Denies Chest Pain or Palpitations
Abdomen/GI: Reports Abdominal Pain and Nausea; Denies Vomiting, Diarrhea or Constipated
: Denies Dysuria or Frequency
Musculoskeletal: Denies Joint Pain or Edema
Neurological: Denies Dizzy or Headache
Psych: Denies Depression or Anxiety
Physical Exam
Vital Signs
Vital Signs
Temp Pulse Resp BP Pulse Ox
98.2 F 89 16 129/76 96
06/20/24 22:25 06/21/24 00:22 06/21/24 00:22 06/21/24 00:21 06/21/24 00:22
Physical Exam
General: Other (83y F in no acute distress.)
HEENT: Moist mucous membranes, PERRLA and Other (NG in place in the L nostril draining dark, bilious material.)
Respiratory: Clear; No Wheezes, Rales or Rhonchi
Cardiac: S1/S2 and Regular Rhythm; No Murmur
GI: Other (Abdomen is softly distended. Bowel sounds are diminished. No focal tenderness / rebound / guarding.)
Musculoskeletal: No Clubbing, No Cyanosis and No Edema
Neuro: AO x 3
Laboratory Results
-
06/21/24 00:26
06/21/24 00:26
Laboratory Results
Lactic Acid 1.1 mmol/L (0.7-2.0) 06/21/24 00:26
Total Bilirubin 7.5 mg/dl (0.2-1.3) H 06/21/24 00:26
AST 39 U/L (14-36) H 06/21/24 00:26
ALT 32 U/L (0-35) 06/21/24 00:26
Alkaline Phosphatase 94 U/L (38-126) 06/21/24 00:26
Lipase 295 U/L (23-300) 06/21/24 00:26
Impression/Plan
-
A/P: Patient is an 83y F with PMH significant for Crohn's disease s/p colectomy and recurrent SBO / volvulus who presents to ED complaining of abdominal pain x 24 hours.
Small Bowel Volvulus
SBO secondary to the above
- Admit for further evaluation and treatment.
- Patient is comfortable-appearing at present in the ED.
- Vitals stable, lactate level normal.
- NG placed for decompression
- Monitor for any increased / recurrent pain or development of nausea despite decompression.
- Surgery aware and will see early AM.
Crohn's Disease
- s/p remote total colectomy.
Hyperbilirubinemia
- This is quite chronic, though not previously to this degree.
- Baseline appears to be bili of 2-3, currently 7.5.
- CT done in the ED with no significant RUQ / hepatic pathology noted.
- Follow for change / return to baseline.
- Consider abd US and / or GI evaluation if bili does not return to ususal baseline.
Asthma without Acute Exacerbation
- Stable. No current complaints.
- Albuterol PRN.
DVT Prophylaxis: SCDs
Code Status: Full
[2024-06-21 06:24] LABS: ALT (SGPT) 29 U/L (0-35); AST (SGOT) 34 U/L (14-36); Albumin 4.2 g/dl (3.5-5.0); Alkaline Phosphatase 70 U/L (38-126); Blood Urea Nitrogen 18 mg/dl (7-17); Calcium 9.1 mg/dl (8.4-10.2); Carbon Dioxide 29 mmol/L (22-30); Chloride 99 mmol/L (98-107); Direct Bilirubin 0.1 mg/dl (0.0-0.4); Estimated Creatinine Clearance 45 ml/min; Glucose 95 mg/dl (70-99); Lactic Acid 0.7 mmol/L (0.7-2.0); Sodium 135 mmol/L (135-145); Total Bilirubin 6.1 mg/dl (0.2-1.3); Total Protein 7.1 g/dl (6.3-8.2); eGFR > 60.00
[2024-06-21 06:26] LABS: Hematocrit 40.8 % (37.0-47.0); Hemoglobin 13.3 g/dL (12.0-16.0); Mean Corp Hgb Conc. 32.6 g/dL (33.0-37.0); Mean Corpuscular Hgb 30.4 pg (27.0-31.0); Mean Corpuscular Volume 93.4 fL (81.0-99.0); Mean Platelet Volume 9.1 fL (7.4-10.4); Platelet Count 152 10^3/uL (130-400); Red Blood Cell Count 4.37 10^6/uL (4.20-5.40); Red Cell Dist. Width 13.7 % (11.5-14.5); White Blood Cell Count 7.1 10^3/uL (4.8-10.8)
--- NOTE | 2024-06-21 07:27 | EDRN ---
the pt was received from previous shift stacker RN, the pt is resting in stretcher in the lowest position, side rails up x2, call pinzon within reach, HOB elevated, no s/s of distress, VS WNL, NSR in the 70's, the pt is currently on RA Sp02 96%, no c/o
chest pain, no c/o SOB, the pt currently still has a left nare NGT that is hooked to low intermittent suction, the pt has no c/o discomfort due to NGT, the pt denies needing anything at this time, pure wick in place, the pt has been consulted for
colorectal surgery, assessment documented in work list, the pt has been educated on her NPO status and the pt is agreeable to this, will continue to monitor the pt closely
[2024-06-21] MEDS: PROTONIX IV 40 MG IV (07:37)
[2024-06-21] MEDS: DILAUDID 0.5 MG IV (07:37)
--- NOTE | 2024-06-21 07:45 | EDRN ---
AM medication administered along with dilaudid for pain and zofran for nausea, the pt denies needing anything at this time, the pt asked this RN to put her bag on bedside table so that she has access to it, this RN placed the pts bag next to her on
the bedside table, will continue to monitor the pt closely
--- NOTE | 2024-06-21 09:47 | CON.GS ---
Consultation
-
Date/Time Consultation Requested: 06/21/24 0527
Requesting Provider: William
Medical History
-
Chief Complaint: Abdominal pain
History of Present Illness:
Ms Foster is an 83 yo female well known to the CRS service who has a history of Crohn's with prior colon resections x5 with recurrent small bowel volvulus with surgery for detorsion on 12/13/23, 04/15/23, 03/01/23 here at . She presents this admission
with intermittent abdominal pain which began Saturday morning after breakfast. She limited dietary intake throughout the day and her pain resolved but returned early Saturday morning. Later in the day, she felt better and had some tea and toast
without return of symptoms so she tried tea and toast again around 6pm but, unfortunately, the pain returned and did not resolve. She, therefore, presented to the ED for evaluation. In the waiting room, she began to feel nauseated as well but did
not vomit. An NGT was able to be placed and she is currently without pain or nausea. She notes that this morning she has passed some small loose stools but not much flatus. On exam, her abdomen is nontender but is distended.
Past Medical History
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
Past Surgical History: Appendectomy, Bowel Resection (Colon resections x5, detorsion of small bowel volvulus 12/13/23, 04/15/23, 03/01/23) and Other (perianal fistula surgery)
Social History
Tobacco: Non-Smoker
Alcohol: None
Personal:
Living: Alone
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
Family History
Family History: Reviewed & Not Pertinent
Allergies / Home Medications
Allergy/AdvReac Type Severity Reaction Status Date / Time
codeine Allergy Unknown Verified 06/20/24 22:30
seasonal Allergy sneezing Uncoded 06/20/24 22:30
silk sutures Allergy abcess Uncoded 06/20/24 22:30
some dissolvable sutures Allergy Unknown Uncoded 06/20/24 22:30
�Medication �Instructions �Recorded �Confirmed �Type
biotin 5,000 mcg disintegrating 5,000 mcg PO HS Supplement 11/26/17 06/21/24 History
tablet
calcium 315 mg (as 2 ea PO QPM Supplement 11/26/17 06/21/24 History
citrate)-vitamin D3 6.25 mcg (250
unit) tablet (Citracal + Vitamin D
Maximum)
cetirizine 10 mg tablet 10 mg PO HS Allergies 11/26/17 06/21/24 History
fluticasone propionate 50 1 spray intranasal HS Allergies 11/26/17 06/21/24 History
mcg/actuation nasal
spray,suspension
guaifenesin 600 mg tablet, 600 mg PO DAILYPRN PRN 11/26/17 06/21/24 History
extended release 12 hr (Mucus cough/congestion
Relief ER)
omeprazole 20 mg capsule,delayed 20 mg PO HS GERD 11/26/17 06/21/24 History
release
azelastine 137 mcg (0.1 %) nasal 1 spray intranasal DAILY Allergies 03/01/23 06/21/24 History
spray
cholecalciferol (vitamin D3) 125 125 mcg PO HS Supplement 03/01/23 06/21/24 History
mcg (5,000 unit) tablet (Vitamin
D3)
estradiol 0.025 mg/24 hr weekly 1 patch transdermal TU Hormone 03/01/23 06/21/24 History
transdermal patch replacement
fluticasone 250 mcg-salmeterol 50 1 inh inhalation R HS Allergies 03/01/23 06/21/24 History
mcg/dose blistr powdr for
inhalation (Wixela Inhub)
montelukast 10 mg tablet 10 mg PO HS Allergies 03/01/23 06/21/24 History
progesterone micronized 100 mg 100 mg PO HS Hormone replacement 03/01/23 06/21/24 History
capsule
albuterol sulfate 90 mcg/actuation 2 puff inhalation R Q6 PRN 12/12/23 06/21/24 History
aerosol inhaler sob/wheezing
cholestyramine (with sugar) 4 gram 1 ea PO BID 12/12/23 06/21/24 History
powder for susp in a packet
cyanocobalamin (vitamin B-12) 1,000 mcg PO HS 12/12/23 06/21/24 History
1,000 mcg tablet
famotidine 20 mg tablet 20 mg PO DAILY PRN 12/12/23 06/21/24 History
heartburn/indigestion
psyllium 1 packet PO HS 12/12/23 06/21/24 History
Review of Systems
-
History Source: Patient
All other systems: Negative unless noted
A 10 point review of systems was completed, and was negative except as per HPI.
Physical Exam
Vital Signs
Temp Pulse Resp BP Pulse Ox
98.5 F 81 20 127/64 97
06/21/24 07:07 06/21/24 08:33 06/21/24 08:33 06/21/24 08:33 06/21/24 08:33
06/20/24 06/21/24 06/22/24
06:59 06:59 06:59
Actual Weight 51.2 kg
Body Mass Index (BMI) 18.8
Lab Results
06/21/24 06:03
06/21/24 06:03
WBC 7.1 10^3/uL (4.8-10.8) 06/21/24 06:03
Hgb 13.3 g/dL (12.0-16.0) 06/21/24 06:03
Hct 40.8 % (37.0-47.0) 06/21/24 06:03
Plt Count 152 10^3/uL (130-400) D 06/21/24 06:03
Abs Immat Gran (auto) 0.1 10^3/uL (0-0.05) H 06/21/24 00:26
Neutrophils % 73.3 % (42.2-75.2) 06/21/24 00:26
Physical Exam
General: No Apparent Distress and Comfortable
HEENT: Moist Mucous Membranes
Respiratory: Non Labored Respirations
GI: Soft, Non Tender, Distended and Other (NGT with bilious outputs)
Skin: Warm and Dry
Neuro: Awake, Alert and AO x 3
Psych: Calm
Data Reviewed
-
CT Scan: Image Personally Visualized and interpreted, Report Reviewed by me, Discussed with Physician and Discussed with Patient
Labs: Labs Reviewed by me, Discussed with Patient and Discussed with Family
Old Records: Reviewed
Assessment / Plan
-
83 yo female with recurrent small bowel volvulus with ex lap for detorsion x3 over the last 2 years presenting with intermittent abdominal pain x2 days with onset of nausea yesterday. CT imaging consistent with small bowel volvulus once again with
no evidence of bowel threat or compromise on imaging or exam. She has had symptomatic improvement with NGT placement and has passed a few small BM's with improvement in distention since my exam 2 hours earlier this am. AFVSS. No leukocytosis.
Case discussed with hospitalist at bedside with patient
Will continue NGT for decompression. Hold off on OR for now.
GI consulted for possible lower endoscopy for detorsion
NPO/IVF
Analgesics/antiemetics prn
--- NOTE | 2024-06-21 12:10 | EDRN ---
per the provider Rsoi Paulino INSURANCE COORDINATOR the NG tube was supposed to be advanced by 8 cm however the pt only allowed this RN to advance the NGT by 1cm and is requesting the provider to come to the bedside to speak to her, the pt stated that a provider has
not been at the pts bedside to speak to her or update her as to why the NGT has to be advanced, this RN notified Rosi Paulino INSURANCE COORDINATOR, Left Nare NG tube advanced from 53cm to 54cm
--- NOTE | 2024-06-21 12:25 | W.PN.HOSP.TC ---
Today's Communication/Plan
-
Maintain NGT to low wall suction
Consult GI for consideration of endoscopic decompression
Serial abdomen exam
N.p.o. pending GI consult
Assessment / Plan
Assessment / Plan
#SBO due to small bowel volvulus
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
-Upon arrival had intermittent pain and distention; has since improved symptomatically and on exam
-Vital signs have been stable, lactate levels were normal on admission
-Surgery evaluated, no plans for OR; recommended possible endoscopic decompression
-Remains n.p.o.; status post NGT that remains to LWS
Plan
-Consult GI for consideration of endoscopic decompression
-Maintain NGT to low wall suction for now, remain n.p.o. pending GI
-Serial abdomen exams
-Consider repeating lactate if symptoms worsen
#Indirect hyperbilirubinemia
-Suspect this is related to short-bowel, bilirubin reabsorption
-Chronically elevated though higher than baseline here at 7.5 on arrival
-CT from the ED did not show any acute hepatobiliary findings
-Currently downtrending without intervention
-Continue to trend LFTs, consider RUQ US if worsening
#Crohn's disease
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
#Chronic mild intermittent asthma
-Home medications include albuterol inhaler as needed
#GERD
-Home medications include omeprazole nightly
#hormone replacement therapy
-On estradiol patch and progesterone pill
DVT prophylaxis: SCDs
Diet: N.p.o. for now
CODE STATUS: Full code
I updated her son Riki today, 06/21
Anticipated Discharge: 24 - 48 hours
Subjective/Interval History
-
Date of Service: June 21, 2024
Seen and examined at the bedside. No acute events report overnight. AFVSS this morning
States that her symptoms have improved, no longer having any abdomen pain. Was present for conversation with surgeon, patient is very against having an ileostomy in the future
Denies any acute complaint
Objective Data
-
Labs:
Laboratory Results
06/21/24 06/21/24
00:26 06:03
WBC 9.9 7.1
Hgb 14.8 13.3
Hct 43.1 40.8
Plt Count 216 152 D
Sodium 136 135
Potassium 4.1 4.0
Chloride 99 99
Carbon Dioxide 24 29
BUN 17 18 H
Creatinine 0.8 0.8
Glucose 99 95
Calcium 9.9 9.1
Total Bilirubin 7.5 H 6.1 H
AST 39 H 34
ALT 32 29
Alkaline Phosphatase 94 70
Vital Signs:
Vital Signs
Temp Pulse Resp BP Pulse Ox
98.5 F 70 20 106/56 93
06/21/24 07:07 06/21/24 10:05 06/21/24 10:05 06/21/24 10:05 06/21/24 10:05
Review of Systems
-
History Source: Patient
All other systems: Reviewed and negative
Physical Exam
-
General: Well Developed, No Apparent Distress, Comfortable and Other (Thin and frail)
HEENT: Normocephalic, Atraumatic, Moist Mucous Membranes and Anicteric
Respiratory: Clear to Auscultation and Non Labored Respirations
Cardiac: Regular Rhythm and S1/S2; Negative Murmur, Rub or Gallop
GI: Soft, Nontender, Nondistended and Normal Bowel Sounds
Musculoskeletal: No Clubbing, No Cyanosis and No Edema
Skin: Warm, Dry, Normal Turgor and Other (Multiple vertical abdomen scars, in parallel); Negative Rash or Jaundice
Neuro: AO x 3 and Nonfocal/Grossly Intact
Psych: Calm
--- NOTE | 2024-06-21 12:37 | EDRN ---
gastroenterology is currently at the pts bedside and is speaking with the pt regarding the pts NGT and per the pt she does not want the NGT advanced again
--- NOTE | 2024-06-21 12:44 | EDRN ---
this RN reached out to the attending Dr. Pabon in regards to the pt refusing for NGT to be advanced and in regards to down grading the pt from IMU to tele
--- NOTE | 2024-06-21 12:47 | EDRN ---
per Dr. Pabon the pt will be down graded to Tele, the pt stated to this RN that she feels better, does not want the NGT advanced, has no c/o N/V, the pt has been passing gas, VS WNL, no s/s of distress, will continue to monitor the pt closely
--- NOTE | 2024-06-21 13:23 | CON.GI ---
Consultation
-
Date/Time Consultation Requested: 06/21/2024
Date/Time Consultation Performed: 06/21/2024
Requesting Provider: Hospitalist
Performing Provider: Kesavan. Berkley KLEIN
Reason for Consultation: Small bowel volvulus
Medical History
Chief Complaint / HPI
Chief Complaint: Abdominal pain
History of Present Illness:
83-year-old female with past medical history of Crohn's disease status post total colectomy with ilio rectal anastomosis, recurrent small bowel volvulus-s/p surgical reduction 02/2023, 11/2023 he is here complaining of abdominal pain for the last 2
days. She tried to managed the pain with adjustment of diet but was unsuccessful . denies any nausea or vomiting. Bowel movements few days back. Patient claims her abdominal pain/distention felt like when she had volvulus last time. she was
evaluated by surgical team in ED and was placed on NG tube decompression. Patient claims she is currently feeling better with no abdominal pain and less distention. Had 2 small BMs in ED. Denies any nausea or vomiting.
Past Medical History
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
Past Surgical History: Other (Multiple colectomy Rectal surgery Appendectomy Laparotomy with reduction of volvulus, tube decompression and suture pexy on 03/01/23.)
Social History
Tobacco: Non-Smoker
Alcohol: None
Allergies / Home Medications
Allergy/AdvReac Type Severity Reaction Status Date / Time
codeine Allergy Unknown Verified 06/20/24 22:30
seasonal Allergy sneezing Uncoded 06/20/24 22:30
silk sutures Allergy abcess Uncoded 06/20/24 22:30
some dissolvable sutures Allergy Unknown Uncoded 06/20/24 22:30
�Medication �Instructions �Recorded
biotin 5,000 mcg disintegrating 5,000 mcg PO HS Supplement 11/26/17
tablet
calcium 315 mg (as 2 ea PO QPM Supplement 11/26/17
citrate)-vitamin D3 6.25 mcg (250
unit) tablet (Citracal + Vitamin D
Maximum)
cetirizine 10 mg tablet 10 mg PO HS Allergies 11/26/17
fluticasone propionate 50 1 spray intranasal HS Allergies 11/26/17
mcg/actuation nasal
spray,suspension
guaifenesin 600 mg tablet, 600 mg PO DAILYPRN PRN 11/26/17
extended release 12 hr (Mucus cough/congestion
Relief ER)
omeprazole 20 mg capsule,delayed 20 mg PO HS GERD 11/26/17
release
azelastine 137 mcg (0.1 %) nasal 1 spray intranasal DAILY Allergies 03/01/23
spray
cholecalciferol (vitamin D3) 125 125 mcg PO HS Supplement 03/01/23
mcg (5,000 unit) tablet (Vitamin
D3)
estradiol 0.025 mg/24 hr weekly 1 patch transdermal TU Hormone 03/01/23
transdermal patch replacement
fluticasone 250 mcg-salmeterol 50 1 inh inhalation R HS Allergies 03/01/23
mcg/dose blistr powdr for
inhalation (Wixela Inhub)
montelukast 10 mg tablet 10 mg PO HS Allergies 03/01/23
progesterone micronized 100 mg 100 mg PO HS Hormone replacement 03/01/23
capsule
albuterol sulfate 90 mcg/actuation 2 puff inhalation R Q6 PRN 12/12/23
aerosol inhaler sob/wheezing
cholestyramine (with sugar) 4 gram 1 ea PO BID 12/12/23
powder for susp in a packet
cyanocobalamin (vitamin B-12) 1,000 mcg PO HS 12/12/23
1,000 mcg tablet
famotidine 20 mg tablet 20 mg PO DAILY PRN 12/12/23
heartburn/indigestion
psyllium 1 packet PO HS 12/12/23
Review of Systems
-
All other systems: A 12 pt ROS was Negative except as stated above in HPI
Vital Signs
Temp Pulse Resp BP Pulse Ox
98.5 F 70 20 106/56 93
06/21/24 07:07 06/21/24 10:05 06/21/24 10:05 06/21/24 10:05 06/21/24 10:05
Physical Exam
Exam
General: No Apparent Distress and Comfortable
Respiratory: Clear
Cardiac: S1/S2
GI: Soft, Non Tender and Distended (Mild distention)
Results
WBC 7.1 10^3/uL (4.8-10.8) 06/21/24 06:03
Hgb 13.3 g/dL (12.0-16.0) 06/21/24 06:03
Hct 40.8 % (37.0-47.0) 06/21/24 06:03
MCV 93.4 fL (81.0-99.0) 06/21/24 06:03
Plt Count 152 10^3/uL (130-400) D 06/21/24 06:03
Absolute Neuts (auto) 7.2 10^3/uL (1.4-6.5) H 06/21/24 00:26
Sodium 135 mmol/L (135-145) 06/21/24 06:03
Potassium 4.0 mmol/L (3.5-5.1) 06/21/24 06:03
Chloride 99 mmol/L (98-107) 06/21/24 06:03
Carbon Dioxide 29 mmol/L (22-30) 06/21/24 06:03
BUN 18 mg/dl (7-17) H 06/21/24 06:03
Creatinine 0.8 mg/dL (0.6-1.0) 06/21/24 06:03
Calcium 9.1 mg/dl (8.4-10.2) 06/21/24 06:03
Total Bilirubin 6.1 mg/dl (0.2-1.3) H 06/21/24 06:03
AST 34 U/L (14-36) 06/21/24 06:03
ALT 29 U/L (0-35) 06/21/24 06:03
Alkaline Phosphatase 70 U/L (38-126) 06/21/24 06:03
Lipase 295 U/L (23-300) 06/21/24 00:26
Diagnostic Image Results:
Prior GI Procedures:
EGD: Unable to recall
Colonoscopy:
Had flexible sigmoidoscopy with [facility] 1 year back.
Assessment / Plan
-
83-year-old female with history of Crohn's disease status post total colectomy with ileal rectal anastomosis, recurrent small bowel volvulus s/p exploratory lap with detorsion x3 (last 11/2023 ) since 2022 by colorectal surgery is admitted with
abdominal pain/distention for the last 2 days.
Labs no leukocytosis. Hemoglobin 13.3. Electrolytes normal. Lactate normal. Vitals normal.
CT abdomen/pelvis done in ED
IMPRESSION:
1. Status post colectomy. Probable recurrent focal volvulus in the distal small bowel near the anastomosis causing obstruction.
-- Recurrent small bowel volvulus with obstruction-requiring surgical intervention with detorsion in the recent past.
-- Hyperbilirubinemia. Predominantly indirect. Noted in the past as well. AST/ALT/alkaline phosphatase normal. Recent CT imaging liver normal. Likely Gilbert's
-- History of Crohn's disease status post total colectomy with ileal rectal anastomosis
plan
Seen by general surgery team today. Advised on nonsurgical management with NG tube decompression. Currently clinically feeling better
N.p.o.
NG tube for suction
Repeat abdominal x-ray in a.m.
Requested about GI opinion on endoscopic detorsion for small bowel volvulus. Considering her prior history of recurrent small bowel volvulus requiring surgical interventions endoscopic detorsion will not address her primary issue at this point. I
explained to her in detail. Patient is concerned about complications with endoscopy including perforation etc and would like to hold off on any invasive endoscopy at this point. She would like to discuss further with colorectal surgery (
). Further recommendation as per colorectal surgery
Total Time Spent with Patient (in minutes): 55
-
-
Thank you for consultation and allowing me to participate in the patient's care. Please call the [facility] architect GI physician during the after hours with any questions or concerns.
--- NOTE | 2024-06-21 13:44 | EDRN ---
per Rosi Paulino SUPERINTENDENT [employer]PER[employer] she came to the pts bedside to speak with the pt regarding advancement of the NGT and Rosi Paulino SUPERINTENDENT [employer]PERATIONS advanced the pts NGT and placed another abdominal xray for confirmation of placement
--- NOTE | 2024-06-21 14:29 | EDRN ---
currently still awaiting for the pt to be down graded, the pt also needs another ABD xray, waiting for xray to notify ed when they are ready for the pt
--- NOTE | 2024-06-21 14:33 | EDRN ---
this RN called the receiving unit and notified them that paper report was going to be tubed up
--- NOTE | 2024-06-21 14:46 | EDRN ---
the pt is going to be taken to xray then up to the unit
[2024-06-21] MEDS: TYLENOL 650 MG PO (17:43)
[2024-06-21] MEDS: HYDROCORTISONE 1% CREAM 1 APPLIC TOPICAL (18:04)
[2024-06-21] MEDS: LR 1000 IV (18:05)
[2024-06-22 02:47] VITALS: BP 127/55
[2024-06-22 06:00] VITALS: BMI 18.2
--- NOTE | 2024-06-22 06:05 | PTCARENOTE ---
Pt aaox3, cooperative, anxious at times. oob to br x1 assist with rw. Denies any pain or nausea. c/o itchy rash on back and inner thigh. Back washed with soap and water, hydrocortisone cream applied. Pt states 'that feels better.' NGT drainage
changed throughout night, now is draining a brown liquid, heme test +. Pt had 3 episodes of diarrhea throughout the night. House SEWER DIGGER made aware. no orders at this time.
[2024-06-22 07:00] VITALS: BP 122/55
[2024-06-22 07:19] LABS: Hematocrit 38.4 % (37.0-47.0); Mean Corp Hgb Conc. 33.9 g/dL (33.0-37.0); Mean Corpuscular Hgb 30.9 pg (27.0-31.0); Mean Corpuscular Volume 91.2 fL (81.0-99.0); Mean Platelet Volume 9.5 fL (7.4-10.4); Platelet Count 161 10^3/uL (130-400); Red Blood Cell Count 4.21 10^6/uL (4.20-5.40); Red Cell Dist. Width 13.7 % (11.5-14.5); White Blood Cell Count 4.9 10^3/uL (4.8-10.8)
[2024-06-22 07:39] LABS: Blood Urea Nitrogen 22 mg/dl (7-17); Calcium 8.7 mg/dl (8.4-10.2); Carbon Dioxide 24 mmol/L (22-30); Chloride 99 mmol/L (98-107); Estimated Creatinine Clearance 43 ml/min; Glucose 54 mg/dl (70-99); Potassium 3.6 mmol/L (3.5-5.1); Sodium 138 mmol/L (135-145); eGFR > 60.00
[2024-06-22 07:47] LABS: Glucose - Point of Care 55 mg/dl (70-99)
[2024-06-22] MEDS: LR 1000 IV (08:12)
[2024-06-22] MEDS: PROTONIX IV 40 MG IV (08:13)
[2024-06-22] MEDS: DEXTROSE 50% SYRINGE 12.5 GRAMS IV (08:13)
[2024-06-22] MEDS: HYDROCORTISONE 1% CREAM 1 APPLIC TOPICAL (08:13)
[2024-06-22] MEDS: D5LR 1000 IV ×2 (08:58→21:01)
[2024-06-22] MEDS: TYLENOL 650 MG PO (09:02)
[2024-06-22 09:07] LABS: Glucose - Point of Care 98 mg/dl (70-99)
[2024-06-22 11:01] VITALS: BMI 18.1
[2024-06-22 11:03] LABS: ALT (SGPT) 26 U/L (0-35); AST (SGOT) 31 U/L (14-36); Albumin 3.7 g/dl (3.5-5.0); Alkaline Phosphatase 67 U/L (38-126); Direct Bilirubin 0.5 mg/dl (0.0-0.4); Total Bilirubin 5.4 mg/dl (0.2-1.3); Total Protein 6.3 g/dl (6.3-8.2)
--- NOTE | 2024-06-22 11:07 | W.PN.GI.CBS2 ---
Addendum entered and electronically signed by Laina Fernández MD 06/22/24 15:54:
I saw and examined the patient.
The SENIOR PROJECT COORDINATOR or PA's note was reviewed and I agree with the note.
Comment: 83 yo F pmh Crohn's dz s/p total colectomy with LISSETTE c/b multiple small bowel volvulus.
I d/w Dr. Armas pt well known to him if she needs a decompressive flex sig he will perform.
Labs with elevated bili all indirect would not be hepatobiliary.
Does carry history of Gilbert's.
I ordered hemolysis labs in AM.
I d/w son Dr. Foster.
I will d/w hospitalist as well.
GI will sign off please call with ?s.
Original Note:
Today's Communication / Plan
-
As per plan
Assessment / Plan
-
83-year-old female with history of Crohn's disease status post total colectomy with ileal rectal anastomosis, recurrent small bowel volvulus s/p exploratory lap with detorsion x3 (last 11/2023 ) since 2022 by colorectal surgery is admitted with
abdominal pain/distention for the last 2 days.
Labs no leukocytosis. Hemoglobin 13.3. Electrolytes normal. Lactate normal. Vitals normal.
CT abdomen/pelvis done in ED
IMPRESSION:
1. Status post colectomy. Probable recurrent focal volvulus in the distal small bowel near the anastomosis causing obstruction.
-- Recurrent small bowel volvulus with obstruction-requiring surgical intervention with detorsion in the recent past.
-- Hyperbilirubinemia. Predominantly indirect. Noted in the past as well. AST/ALT/alkaline phosphatase normal. Recent CT imaging liver normal. Likely Gilbert's.
-- History of Crohn's disease status post total colectomy with ileal rectal anastomosis
plan
NG tube removed. As per surgery.
LFTs in a.m.
LDH, reticulocyte count and haptoglobin ordered
Subjective
Subjective
Date of Service: June 22, 2024
Patient feeling improved today. No abdominal pain. Passing flatus yesterday. NG tube removed. Total bilirubin improving currently 5.4 this morning down from 7.5 on 06/21/2024. Patient confirms she has a history of Gilbert's, had seen Hepatology
in the past. Will order hemolysis labs to ensure.
Objective
Data Reviewed
Laboratory Data:
Laboratory Results
06/22/24 05:48
06/22/24 05:48
Laboratory Results
Total Bilirubin 5.4 mg/dl (0.2-1.3) H 06/22/24 05:48
AST 31 U/L (14-36) 06/22/24 05:48
ALT 26 U/L (0-35) 06/22/24 05:48
Alkaline Phosphatase 67 U/L (38-126) 06/22/24 05:48
Lipase 295 U/L (23-300) 06/21/24 00:26
Vital Signs and I&O:
Vital Signs
Temp Pulse Resp BP Pulse Ox
98.1 F 71 18 122/55 97
06/22/24 07:00 06/22/24 07:00 06/22/24 07:00 06/22/24 07:00 06/22/24 07:00
I&O
06/21/24 06/22/24 06/23/24
06:59 06:59 06:59
Intake Total 1320 / 1320
Output Total 500 / 500
Balance 820 / 820
Physical Exam
Physical Exam
Cardiology: Normal Sinus Rhythm
Pulmonary: Clear
GI: Soft, Non Distended, Non Tender and Normal Bowel Sounds
Neuro: Non Focal
--- NOTE | 2024-06-22 11:09 | W.PN.CRS1 ---
Today's Communication / Plan
-
ngt removed
clear liquids
no plans for surgery
Assessment/Plan
-
83 yo female with recurrent small bowel volvulus with ex lap for detorsion x3 over the last 2 years presenting with intermittent abdominal pain x2 days with onset of nausea yesterday. CT imaging consistent with small bowel volvulus once again with
no evidence of bowel threat or compromise on imaging or exam
WBC: 4.9, vitals normal
NGT output: 500ml
-NGT removed by Dr. Armas at bedside
-Okay to start on clears. Will consider fulls tomorrow if patient tolerates clears today. Discussed at length with patient.
-OOB as tolerated.
-No surgery indicated at this time.
Subjective Data
Subjective Data
Date of Service: June 22, 2024
Patient states she feels well today. She had three bowel movements yesterday. Her abdomen is soft and she has no pain. She denies nausea or vomiting. The NGT is bothering her.
Objective Data
-
Vital Signs
Temp Pulse Resp BP Pulse Ox
98.1 F 71 18 122/55 97
06/22/24 07:00 06/22/24 07:00 06/22/24 07:00 06/22/24 07:00 06/22/24 07:00
Intake & Output
06/21/24 06/22/24 06/23/24
06:59 06:59 06:59
Intake Total 1320 / 1320
Output Total 500 / 500
Balance 820 / 820
Intake:
Oral fluids 480 / 480
IV fluids (Total) 840 / 840
Output:
Gastrointestinal tube output ( 500 / 500
Total)
Lutz Sump 500 / 500
Other:
Number of approximated MODERATE 4
amounts of urine
Lab Results
06/22/24 05:48
06/22/24 05:48
Physical Exam
-
General: No Acute Distress and AOx3
Abdomen: Soft, Non Distended and Non Tender
Skin: Warm and Dry
[2024-06-22] MEDS: BENADRYL ELIXIR 12.5 MG PO (11:29)
--- NOTE | 2024-06-22 11:40 | W.PN.HOSP.TC ---
Today's Communication/Plan
-
Clears
IVF for now
monitor diet tolerance
no plan for surgery/Endoscopic noted
tx to M/S
Assessment / Plan
Assessment / Plan
#SBO due to small bowel volvulus
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
-Surgery evaluated, no plans for OR; recommended possible endoscopic decompression
-Status post NG tube placement and now removal on 06/22/2024
-GI consulted with no plan for endoscopic procedures
-Continue with IV fluid till tolerance of clear liquid diet. Diet per surgery.
-Serial abdomen exams
-Consider repeating lactate if symptoms worsen
#Hypoglycemia
-resolved.
#Indirect hyperbilirubinemia seems chronic in nature
-Suspect this is related to short-bowel, bilirubin reabsorption
-Chronically elevated though higher than baseline here at 7.5 on arrival
-CT from the ED did not show any acute hepatobiliary findings
-Currently downtrending without intervention
-Await hepato-, LDH`
#Crohn's disease
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
#Chronic mild intermittent asthma
-Home medications include albuterol inhaler as needed
#GERD
-Home medications include omeprazole nightly
#hormone replacement therapy
-On estradiol patch and progesterone pill
DVT prophylaxis: lovenox
CODE STATUS: Full code
Anticipated Discharge: 24 - 48 hours
Subjective/Interval History
-
Date of Service: June 22, 2024
States of rash on the back and trunk region
States the rash started at home
States the rash is pruritic.
States feeling better after NG tube removal
States she had loose bowel movements yesterday but none today. No flatulence today.
Patient wants to have telemetry removed
Objective Data
-
Labs:
Laboratory Results
06/22/24
05:48
WBC 4.9
Hgb 13.0
Hct 38.4
Plt Count 161
Sodium 138
Potassium 3.6
Chloride 99
Carbon Dioxide 24
BUN 22 H
Creatinine 0.8
Glucose 54 L*
Calcium 8.7
Total Bilirubin 5.4 H
AST 31
ALT 26
Alkaline Phosphatase 67
Vital Signs:
Vital Signs
Temp Pulse Resp BP Pulse Ox
98.1 F 71 18 122/55 97
06/22/24 07:00 06/22/24 07:00 06/22/24 07:00 06/22/24 07:00 06/22/24 07:00
I&O
06/21/24 06/22/24 06/23/24
06:59 06:59 06:59
Intake Total 1320 / 1320
Output Total 500 / 500
Balance 820 / 820
Physical Exam
-
General: Well Developed, No Apparent Distress, Comfortable and Other (Thin and frail)
HEENT: Normocephalic, Atraumatic, Moist Mucous Membranes and Anicteric
Respiratory: Clear to Auscultation and Non Labored Respirations
Cardiac: Regular Rhythm and S1/S2; Negative Murmur, Rub or Gallop
GI: Soft, Nontender, Nondistended and Normal Bowel Sounds
Musculoskeletal: No Clubbing, No Cyanosis and No Edema
Skin: Warm, Dry, Normal Turgor and Other (Multiple vertical abdomen scars, in parallel); Negative Rash or Jaundice
Neuro: Awake, AO x 3 and Nonfocal/Grossly Intact
Psych: Other (possibly anxious)
Data Reviewed
-
Total Time Spent with Patient (in minutes): 55
[2024-06-22 15:00] VITALS: BP 120/59
--- NOTE | 2024-06-22 15:14 | CM ---
Met with pt at bedside
Pt reports she lives alone in a 2 story home; 2 steps to enter, FF set-up
Independent at baseline, no device with ambulation, drives
DME - none
SNF - [facility] in past
HH - has had in past - unable to recall agency
Has ride at discharge
PCP - Troy Diaz
Pharm - [facility] on [address]
Plan - anticipate home with VN vs No needs
[2024-06-22 16:32] LABS: Glucose - Point of Care 100 mg/dl (70-99)
[2024-06-22] MEDS: LOVENOX 40 MG SC (17:31)
[2024-06-22] MEDS: VITAMIN B-12 1000 MCG PO (21:01)
[2024-06-22] MEDS: ZYRTEC 10 MG PO (21:01)
[2024-06-22 21:23] LABS: Glucose - Point of Care 118 mg/dl (70-99)
[2024-06-22 22:53] VITALS: BP 119/63
[2024-06-23 06:00] VITALS: BMI 18.6
[2024-06-23 07:06] LABS: % Basophils 0.4 % (0-2); % Eosinophils 5.1 % (0-6); % Immature Granulocytes 0.2 % (0-0.5); % Lymphocytes 32.7 % (20.5-51.1); % Monocytes 10.7 % (1.7-9.3); % Neutrophils 50.9 % (42.2-75.2); Absolute Eosinophils 0.2 10^3/uL (0-0.7); Absolute Lymphocytes 1.5 10^3/uL (1.2-3.4); Absolute Monocytes 0.5 10^3/uL (0.1-0.6); Absolute Neutrophils 2.4 10^3/uL (1.4-6.5); Hematocrit 34.8 % (37.0-47.0); Mean Corp Hgb Conc. 34.5 g/dL (33.0-37.0); Mean Corpuscular Hgb 31.3 pg (27.0-31.0); Mean Corpuscular Volume 90.9 fL (81.0-99.0); Mean Platelet Volume 9.6 fL (7.4-10.4); Nucleated Red Blood Cells % 0 %; Platelet Count 157 10^3/uL (130-400); Red Blood Cell Count 3.83 10^6/uL (4.20-5.40); Red Cell Dist. Width 13.5 % (11.5-14.5); Reticulocyte Count 1.1 % (0.4-2.8); White Blood Cell Count 4.7 10^3/uL (4.8-10.8)
[2024-06-23 07:09] LABS: Glucose - Point of Care 107 mg/dl (70-99)
[2024-06-23 07:29] VITALS: BP 118/54
[2024-06-23 07:34] LABS: Blood Urea Nitrogen 12 mg/dl (7-17); Calcium 8.6 mg/dl (8.4-10.2); Carbon Dioxide 30 mmol/L (22-30); Chloride 100 mmol/L (98-107); Estimated Creatinine Clearance 50 ml/min; Glucose 103 mg/dl (70-99); LDH 177 U/L (120-246); Potassium 3.4 mmol/L (3.5-5.1); Sodium 136 mmol/L (135-145); eGFR > 60.00
[2024-06-23] MEDS: PROTONIX IV 40 MG IV (08:33)
[2024-06-23] MEDS: HYDROCORTISONE 1% CREAM 1 APPLIC TOPICAL (08:34)
[2024-06-23 08:36] LABS: Glycohemoglobin (HgbA1c) 5.2 % (4.0-5.6)
[2024-06-23 09:49] LABS: ALT (SGPT) 22 U/L (0-35); AST (SGOT) 27 U/L (14-36); Albumin 3.4 g/dl (3.5-5.0); Alkaline Phosphatase 54 U/L (38-126); Direct Bilirubin 0.4 mg/dl (0.0-0.4); GGTP 13 U/L (12-43); Total Bilirubin 3.9 mg/dl (0.2-1.3); Total Protein 5.9 g/dl (6.3-8.2)
--- NOTE | 2024-06-23 11:05 | W.PN.CRS1 ---
Today's Communication / Plan
-
full liquids
Assessment/Plan
-
83 yo female with recurrent small bowel volvulus with ex lap for detorsion x3 over the last 2 years presenting with intermittent abdominal pain x2 days with onset of nausea yesterday. CT imaging consistent with small bowel volvulus once again with
no evidence of bowel threat or compromise on imaging or exam
WBC: 4.7, vitals normal
-Advance to full liquids today. D/C IVFs.
-OOB as tolerated.
-No surgery indicated at this time.
Subjective Data
Subjective Data
Date of Service: June 23, 2024
The patient states she is having bowel movements and flatus. She denies abdominal pain. She tolerated clears without difficulty.
Objective Data
-
Vital Signs
Temp Pulse Resp BP Pulse Ox
97.7 F 64 16 118/54 96
06/23/24 07:29 06/23/24 07:29 06/23/24 07:29 06/23/24 07:29 06/23/24 07:29
Intake & Output
06/22/24 06/23/24 06/24/24
06:59 06:59 06:59
Intake Total 1320 / 1320 1800 / 1800
Output Total 500 / 500
Balance 820 / 820 1800 / 1800
Intake:
Oral fluids 480 / 480 840 / 840
IV fluids (Total) 840 / 840 960 / 960
Output:
Gastrointestinal tube output ( 500 / 500
Total)
[place] Sump 500 / 500
Other:
Number of approximated MODERATE 4 3
amounts of urine
Lab Results
06/23/24 05:52
06/23/24 05:52
Physical Exam
-
General: No Acute Distress and AOx3
Abdomen: Soft, Non Distended and Non Tender
Skin: Warm and Dry
--- NOTE | 2024-06-23 11:31 | W.PN.HOSP.TC ---
Today's Communication/Plan
-
dc IVF
fulls
oob
trend cmp
CRS recs
Assessment / Plan
Assessment / Plan
#SBO due to small bowel volvulus
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
-Surgery evaluated, no plans for OR; recommended possible endoscopic decompression
-Status post NG tube placement and now removal on 06/22/2024
-GI consulted with no plan for endoscopic procedures
-DCed IVF. Clears advanced to fulls today. Plan for LRD tomm.
-Serial abdomen exams
-Consider repeating lactate if symptoms worsen
#Hypoglycemia
-resolved.
#Indirect hyperbilirubinemia seems chronic in nature
-Suspect this is related to short-bowel, bilirubin reabsorption
-Chronically elevated though higher than baseline here at 7.5 on arrival
-CT from the ED did not show any acute hepatobiliary findings
-Currently downtrending without intervention
-Bili downtrending. ldh/retic wnl. Hapto pending. Hgb has been stable. ?Gilbert.
#Rash prurtic in nature ?allergic reaction
benadyrl low dose prn
steroid cream
#Crohn's disease
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
#Chronic mild intermittent asthma
-Home medications include albuterol inhaler as needed
#GERD
-Home medications include omeprazole nightly
#hormone replacement therapy
-On estradiol patch and progesterone pill
DVT prophylaxis: lovenox
CODE STATUS: Full code
updated son via [place] Text
Anticipated Discharge: Within 24 hours
Subjective/Interval History
-
Date of Service: June 23, 2024
no abd pain
tolerating liquids
walking around with walker
states of intermittent pruritus
Benadryl deemed to help alot
Objective Data
-
Labs:
Laboratory Results
06/23/24
05:52
WBC 4.7 L
Hgb 12.0
Hct 34.8 L
Plt Count 157
Sodium 136
Potassium 3.4 L
Chloride 100
Carbon Dioxide 30
BUN 12
Creatinine 0.7
Glucose 103 H
Calcium 8.6
Total Bilirubin 3.9 H
AST 27
ALT 22
Alkaline Phosphatase 54
Vital Signs:
Vital Signs
Temp Pulse Resp BP Pulse Ox
97.7 F 64 16 118/54 96
06/23/24 07:29 06/23/24 07:29 06/23/24 07:29 06/23/24 07:29 06/23/24 07:29
I&O
06/22/24 06/23/24 06/24/24
06:59 06:59 06:59
Intake Total 1320 / 1320 1800 / 1800
Output Total 500 / 500
Balance 820 / 820 1800 / 1800
Physical Exam
-
General: Well Developed, No Apparent Distress, Comfortable and Cachectic
HEENT: Normocephalic, Atraumatic, Moist Mucous Membranes and Anicteric
Respiratory: Clear to Auscultation and Non Labored Respirations
Cardiac: Regular Rhythm and S1/S2; Negative Murmur, Rub or Gallop
GI: Soft, Nontender, Nondistended and Normal Bowel Sounds
Musculoskeletal: No Clubbing, No Cyanosis and No Edema
Skin: Warm, Dry, Normal Turgor and Other (Multiple vertical abdomen scars, in parallel); Negative Rash or Jaundice
Neuro: Awake, AO x 3 and Nonfocal/Grossly Intact
Psych: Calm and Other (possibly anxious)
Data Reviewed
-
Total Time Spent with Patient (in minutes): 55
--- NOTE | 2024-06-23 11:49 | PN.CDI ---
CDI
- -
CDI:
Physician Documentation Request
Admit Date: 06/21/24 05:20
Dear Doctor Nishant,
Please review the following and provide your response in the progress notes.
Clinical Indicators:
Height: 5'5
Weight: 108 lbs
BMI: 18.1
Other Clinical Notes: 06/22 Pricing Lead indicates patient underweight
If possible, please provide an associated diagnosis related to the abnormal BMI, such as:
Underweight
Cachectic
Other (please specify)
Use of terms such as suspected, likely, concern for, or probable (associated with a specific diagnosis that is being evaluated, monitored, or treated as if it exists) are acceptable and can be coded in the inpatient setting, when documented at the
time of discharge.
Thank you,
Shawna Kohli RN
CDI Specialist
Please use your independent medical judgment in providing your response.
[2024-06-23 13:42] LABS: Glucose - Point of Care 115 mg/dl (70-99)
--- NOTE | 2024-06-23 15:39 | CM ---
Chart reviewed. Met with pt
Diet advanced to full liquids
Following labs
Plan - anticipate home no needs
[2024-06-23] MEDS: LOVENOX 40 MG SC (18:02)
[2024-06-23 18:03] LABS: Glucose - Point of Care 132 mg/dl (70-99)
[2024-06-23] MEDS: VITAMIN B-12 1000 MCG PO (21:07)
[2024-06-23] MEDS: ZYRTEC 10 MG PO (21:07)
[2024-06-23 21:24] LABS: Glucose - Point of Care 169 mg/dl (70-99)
[2024-06-23 23:26] VITALS: BP 118/72
[2024-06-24 06:49] VITALS: BMI 18.2
[2024-06-24 07:44] LABS: ALT (SGPT) 22 U/L (0-35); AST (SGOT) 27 U/L (14-36); Albumin 3.4 g/dl (3.5-5.0); Alkaline Phosphatase 52 U/L (38-126); Blood Urea Nitrogen 12 mg/dl (7-17); Calcium 8.9 mg/dl (8.4-10.2); Carbon Dioxide 30 mmol/L (22-30); Chloride 101 mmol/L (98-107); Estimated Creatinine Clearance 49 ml/min; Glucose 90 mg/dl (70-99); Potassium 3.6 mmol/L (3.5-5.1); Sodium 137 mmol/L (135-145); Total Bilirubin 2.5 mg/dl (0.2-1.3); Total Protein 6.1 g/dl (6.3-8.2); eGFR > 60.00
[2024-06-24 08:00] VITALS: BP 118/61
[2024-06-24] MEDS: HYDROCORTISONE 1% CREAM 1 APPLIC TOPICAL (08:01)
[2024-06-24] MEDS: PROTONIX IV 40 MG IV (08:01)
[2024-06-24 11:25] LABS: Glucose - Point of Care 130 mg/dl (70-99)
--- NOTE | 2024-06-24 11:45 | W.PN.HOSP.TC ---
Addendum entered and electronically signed by Wilfrido Dillard MD 06/24/24 12:01:
underweight
Original Note:
Today's Communication/Plan
-
monitor for diet tolerance
home tomm
Assessment / Plan
Assessment / Plan
#SBO due to small bowel volvulus
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
-Surgery evaluated, no plans for OR; recommended possible endoscopic decompression
-Status post NG tube placement and now removal on 06/22/2024
-GI consulted with no plan for endoscopic procedures
-IVF stopped. Diet advanced to regular. Pt wants to monitor her symptoms.
-Serial abdomen exams
-Consider repeating lactate if symptoms worsen
#Hypoglycemia
-resolved.
#Indirect hyperbilirubinemia seems chronic in nature
-Suspect this is related to short-bowel, bilirubin reabsorption
-Chronically elevated though higher than baseline here at 7.5 on arrival
-CT from the ED did not show any acute hepatobiliary findings
-Currently T bili downtrending without intervention
-Bili downtrending. ldh/retic wnl. Hapto pending. Hgb has been stable. ?Gilbert.
#Rash prurtic in nature ?allergic reaction
benadyrl low dose prn
steroid cream
#Crohn's disease
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
#Chronic mild intermittent asthma
-Home medications include albuterol inhaler as needed
#GERD
-Home medications include omeprazole nightly
#hormone replacement therapy
-On estradiol patch and progesterone pill
DVT prophylaxis: lovenox
CODE STATUS: Full code
updated son via [place] Text on 06/23
Anticipated Discharge: Within 24 hours
Subjective/Interval History
-
Date of Service: June 24, 2024
denies abd pain
wants to try regular food and wait for few meals before going home
Objective Data
-
Labs:
Laboratory Results
06/24/24
06:17
Sodium 137
Potassium 3.6
Chloride 101
Carbon Dioxide 30
BUN 12
Creatinine 0.7
Glucose 90
Calcium 8.9
Total Bilirubin 2.5 H
AST 27
ALT 22
Alkaline Phosphatase 52
Vital Signs:
Vital Signs
Temp Pulse Resp BP Pulse Ox
97.9 F 62 18 118/61 95
06/24/24 08:00 06/24/24 08:00 06/24/24 08:00 06/24/24 08:00 06/24/24 08:00
I&O
06/23/24 06/24/24 06/25/24
06:59 06:59 06:59
Intake Total 1800 / 1800 480 / 480
Balance 1800 / 1800 480 / 480
Physical Exam
-
General: Well Developed, No Apparent Distress, Comfortable and Cachectic
HEENT: Normocephalic, Atraumatic, Moist Mucous Membranes and Anicteric
Respiratory: Non Labored Respirations
Cardiac: Negative Murmur, Rub or Gallop
GI: Soft, Nontender, Nondistended and Normal Bowel Sounds
Musculoskeletal: No Clubbing, No Cyanosis and No Edema
Skin: Warm, Dry, Normal Turgor and Other (Multiple vertical abdomen scars, in parallel); Negative Rash or Jaundice
Neuro: Awake, AO x 3 and Nonfocal/Grossly Intact
Psych: Calm
--- NOTE | 2024-06-24 11:57 | W.PN.CRS1 ---
Today's Communication / Plan
-
� As below
Assessment/Plan
-
83-year-old female with PMH of Crohn's disease (perianal and small bowel, likely large bowel as well), multiple bowel resections with ileosigmoid anastomosis, multiple small bowel volvulus is, first requiring ex lap with reduction and pexy in
03/2023, recurrent volvulus requiring laparoscopic GABO with pexy on 12/13/2023 who presents with intermittent abdominal pain and was found to have another small bowel obstruction due to volvulus seen just proximal to the ileosigmoid anastomosis;
patient treated nonoperatively and improving
AFVSS
No labs today
�Advance to regular
�Recommended low residue, but patient adamant at having a nonrestricted diet; explained the risks/benefits and patient understood
�Pain control with Tylenol and Dilaudid, minimize narcotics as possible
� Okay for home meds
� IS/OOB
� Continue DVT PPx
� Appreciate hospitalist
Dispo - patient has had issues with advancing her diet (i.e.�clinically doing well, but after the second or third meal, regressed); therefore, recommend full 24 hours with regular diet prior to discharge
Subjective Data
Subjective Data
Date of Service: June 24, 2024
No overnight events.
Denies nausea/vomiting or abdominal pain. Tolerating diet.
+flatus (none this morning, but passed last night) +BMs +voiding
Pt is OOB.
Objective Data
-
Vital Signs
Temp Pulse Resp BP Pulse Ox
97.9 F 62 18 118/61 95
06/24/24 08:00 06/24/24 08:00 06/24/24 08:00 06/24/24 08:00 06/24/24 08:00
Intake & Output
06/23/24 06/24/24 06/25/24
06:59 06:59 06:59
Intake Total 1800 / 1800 480 / 480
Balance 1800 / 1800 480 / 480
Intake:
Oral fluids 840 / 840 480 / 480
IV fluids (Total) 960 / 960
Other:
Number of approximated MODERATE 3 2
amounts of urine
Lab Results
06/23/24 05:52
06/24/24 06:17
Physical Exam
-
General: No Acute Distress and AOx3
HEENT: Grossly Normal
Abdomen: Soft, Non Distended, Non Tender, No Guarding and No Rebound
Skin: Warm and Dry
[2024-06-24 14:36] VITALS: BP 128/78
[2024-06-24] MEDS: LOVENOX 40 MG SC (17:55)
[2024-06-24] MEDS: VITAMIN B-12 1000 MCG PO (21:08)
[2024-06-24] MEDS: ZYRTEC 10 MG PO (21:08)
[2024-06-24 22:20] LABS: Haptoglobin 46 mg/dL (30-200)
[2024-06-24 22:43] VITALS: BP 137/61
[2024-06-25 07:10] VITALS: BP 119/63
[2024-06-25 08:03] LABS: ALT (SGPT) 20 U/L (0-35); AST (SGOT) 25 U/L (14-36); Albumin 3.8 g/dl (3.5-5.0); Alkaline Phosphatase 61 U/L (38-126); Blood Urea Nitrogen 19 mg/dl (7-17); Calcium 8.9 mg/dl (8.4-10.2); Carbon Dioxide 29 mmol/L (22-30); Chloride 101 mmol/L (98-107); Estimated Creatinine Clearance 43 ml/min; Glucose 115 mg/dl (70-99); Sodium 139 mmol/L (135-145); Total Bilirubin 1.5 mg/dl (0.2-1.3); Total Protein 6.5 g/dl (6.3-8.2); eGFR > 60.00
[2024-06-25] MEDS: HYDROCORTISONE 1% CREAM 1 APPLIC TOPICAL (08:21)
[2024-06-25] MEDS: PROTONIX IV 40 MG IV (08:27)
[2024-06-25] MEDS: NSS (PRESERVATIVE FREE) 10 ML IV (08:27)
--- NOTE | 2024-06-25 08:35 | W.PN.CRS1 ---
Today's Communication / Plan
-
okay for d/c
will s/o
Assessment/Plan
-
83-year-old female with PMH of Crohn's disease (perianal and small bowel, likely large bowel as well), multiple bowel resections with ileosigmoid anastomosis, multiple small bowel volvulus is, first requiring ex lap with reduction and pexy in
03/2023, recurrent volvulus requiring laparoscopic GABO with pexy on 12/13/2023 who presents with intermittent abdominal pain and was found to have another small bowel obstruction due to volvulus seen just proximal to the ileosigmoid anastomosis;
patient treated nonoperatively and improving
AFVSS
�Continue regular
�Recommended low residue, but patient adamant at having a nonrestricted diet; explained the risks/benefits and patient understood
�Pain control with Tylenol and Dilaudid, minimize narcotics as possible
� Okay for home meds
� IS/OOB
� Continue DVT PPx
� Appreciate hospitalist
- Dispo - okay from our perspective. No plans for surgery. Will sign off. Follow up in the office with Dr. Armas as needed.
Subjective Data
Subjective Data
Date of Service: June 25, 2024
Patient states she is having bowel movements and gas. She denies nausea or vomiting. She tolerated a regular diet.
Objective Data
-
Vital Signs
Temp Pulse Resp BP Pulse Ox
97.8 F 60 16 119/63 96
06/25/24 07:10 06/25/24 07:10 06/25/24 07:10 06/25/24 07:10 06/25/24 07:10
Intake & Output
06/24/24 06/25/24 06/26/24
06:59 06:59 06:59
Intake Total 480 / 480 1440 / 1440
Balance 480 / 480 1440 / 1440
Intake:
Oral fluids 480 / 480 1440 / 1440
Other:
Number of approximated MODERATE 2 4
amounts of urine
Number of approximated LARGE 2
amounts of urine
Lab Results
06/23/24 05:52
06/25/24 05:47
Physical Exam
-
General: No Acute Distress and AOx3
Abdomen: Soft, Non Distended and Non Tender
Skin: Warm and Dry
--- NOTE | 2024-06-25 10:57 | CM ---
Patient seen at bedside.
IMM explained & signed. in chart
patient states to be d/c today
No needs
PLAN: home, no needs
son to transport
[2024-06-25 11:10] VITALS: BP 130/93
--- NOTE | 2024-06-25 11:10 | W.PN.HOSP.TC ---
Today's Communication/Plan
-
dc home
OP GI and CRS f/u
Assessment / Plan
Assessment / Plan
#SBO due to small bowel volvulus
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
-Surgery evaluated, no plans for OR; recommended possible endoscopic decompression
-Status post NG tube placement and now removal on 06/22/2024
-GI consulted with no plan for endoscopic procedures
-IVF stopped. Diet advanced to regular over LRD . Pt tolerated regualr diet for 24h plus with multiple meals.
-Serial abdomen exams
-ok to go dc per CRS.
#Hypoglycemia
-resolved.
#Indirect hyperbilirubinemia seems chronic in nature
-Suspect this is related to short-bowel, bilirubin reabsorption
-Chronically elevated though higher than baseline here at 7.5 on arrival
-CT from the ED did not show any acute hepatobiliary findings
-Currently T bili downtrending without intervention to 1.5
-Bili downtrending. ldh/retic wnl. . Hgb has been stable. ?Gilbert.
#Rash prurtic in nature ?allergic reaction
benadyrl low dose prn
steroid cream
OP derm f/u
#Crohn's disease
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
#Chronic mild intermittent asthma
-Home medications include albuterol inhaler as needed
#GERD
-Home medications include omeprazole nightly
#hormone replacement therapy
-On estradiol patch and progesterone pill
Underweight
DVT prophylaxis: lovenox
CODE STATUS: Full code
More than 30 minutes spent in discharge including
Final examination of the patient
Summarizing hospital stay
Instructions for continuing care to all relevant caregivers
Preparation of discharge records, prescriptions, and referral forms
Total time spent (in minutes): 55
Anticipated Discharge: Today
Subjective/Interval History
-
Date of Service: June 25, 2024
tolerated diet
no severe abd pain
Objective Data
-
Labs:
Laboratory Results
06/25/24
05:47
Sodium 139
Potassium 4.0
Chloride 101
Carbon Dioxide 29
BUN 19 H
Creatinine 0.8
Glucose 115 H
Calcium 8.9
Total Bilirubin 1.5 H D
AST 25
ALT 20
Alkaline Phosphatase 61
Vital Signs:
Vital Signs
Temp Pulse Resp BP Pulse Ox
97.8 F 60 16 119/63 96
06/25/24 07:10 06/25/24 07:10 06/25/24 07:10 06/25/24 07:10 06/25/24 07:10
I&O
06/24/24 06/25/24 06/26/24
06:59 06:59 06:59
Intake Total 480 / 480 1440 / 1440
Balance 480 / 480 1440 / 1440
Physical Exam
-
General: Well Developed, No Apparent Distress, Comfortable, Conversant and Cachectic
HEENT: Normocephalic, Atraumatic, Moist Mucous Membranes and Anicteric
Respiratory: Non Labored Respirations
Cardiac: Negative Murmur, Rub or Gallop
GI: Soft, Nontender, Nondistended and Normal Bowel Sounds
Musculoskeletal: No Clubbing, No Cyanosis and No Edema
Skin: Warm, Dry, Normal Turgor and Other (Multiple vertical abdomen scars, in parallel); Negative Rash or Jaundice
Neuro: Awake, AO x 3 and Nonfocal/Grossly Intact
Psych: Calm
--- NOTE | 2024-06-25 11:14 | W.DCSUMMARY ---
Discharge Summary
Discharge Data
Date of Admission: 06/21/24
Date of Discharge: 06/25/24
-
Pending Results: No
Hospital Course
83y F with PMH significant for Crohn's disease s/p Colon resections x5, detorsion of small bowel volvulus 12/13/23, 04/15/23, 03/01/23 and recurrent small bowel volvulus who presents to ED complaining of abdominal pain.� Colorectal surgery and
gastroenterology was consulted.� NGT was placed on admission with significant output.� Patient was started on IV fluid resuscitation. 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
bili down trended.� Eventually patient NG tube was removed per colorectal surgery.� Patient was passing flatulence and having loose bowel movements.� Patient was started on clears liquid diet which she was able to tolerated.� Patient was slowly
advance from clears to full's which she was able to tolerate.� Patient was advanced to low residue diet and monitor for 24 hours with multiple meals without any significant problems.� Patient was ambulating without any difficulty.� Patient bilirubin
continue to down trend.� Patient be discharged home.
Discharge Plan
-
Patient Disposition: Home (Routine Discharge)
Discharge Diagnosis/Procedures: SBO due to small bowel volvulus
Condition: Fair
Diet: Regular
Activity: With assistance and As tolerated
Driving Restrictions: As prior to admission
Activity Restrictions/Additional Instructions:
Per surgeon recommendation restart cholestyramine first and then add in the psyllium husk. .
Referrals:
Josef Armas MD [Active] - None
Troy Diaz MD [Family Provider] -
Prescriptions:
Continued
cetirizine 10 MG tablet
10 mg PO HS
omeprazole 20 MG capsule,delayed release(DR/EC)
20 mg PO HS
fluticasone propionate 1 SPRAY spray,suspension
1 spray intranasal HS
calcium citrate-vitamin D3 [Citracal + D Maximum] 1 EACH tablet
2 ea PO QPM
guaifenesin [Mucus Relief ER] 600 MG tablet extended release 12hr
600 mg PO DAILYPRN PRN (Reason: cough/congestion)
biotin 5,000 MCG tablet,disintegrating
5,000 mcg PO HS
fluticasone propion-salmeterol [Wixela Inhub] 250-50 mcg/dose Blister With Device
1 inh INHALATION R HS
estradiol 0.025 mg/24 hr Patch Weekly
1 patch TRANSDERMAL
Rx Instructions:
change on saturday, on right flank 06/21/2024
montelukast 10 mg Tablet
10 mg PO HS
azelastine 137 mcg (0.1 %) Aerosol,[place]
1 spray INTRANASAL DAILY
progesterone micronized 100 mg Capsule
100 mg PO HS
cholecalciferol (vitamin D3) [Vitamin D3] 125 mcg (5,000 unit) Tablet
125 mcg PO HS
cyanocobalamin (vitamin B-12) 1,000 mcg Tablet
1,000 mcg PO HS
famotidine 20 mg Tablet
20 mg PO DAILY PRN (Reason: heartburn/indigestion)
albuterol sulfate 90 mcg/actuation Hfa Aerosol Inhaler
2 puff INHALATION R Q6 PRN (Reason: sob/wheezing)
cholestyramine (with sugar) 4 gram powder in packet
1 ea PO BID
psyllium Packet
1 packet PO HS
Discharge Orders:
Discharge Patient (As Directed); Ordered 06/25/24
Ordered By: Wilfrido Dillard
Discharge Date and Time
Print Language: MAC[place]
[2024-06-25 15:55] VITALS: BP 123/65
== END 2024-06-25 16:25 | disposition home or self-care (01) | DRG 389 ==
LOC: 2 SOUTH 05:20
PROVIDERS: Internal Medicine Gastroenterology; Registered Nurse; ADMITTING PHYSICIAN Hospitalist; ATTENDING PHYSICIAN Hospitalist; CONSULT PHYSICIAN Internal Medicine Gastroenterology; EMERGENCY PHYSICIAN Student in an Organized Health Care Education/Training Program; FAMILY PHYSICIAN Family Medicine; OTHER PHYSICIAN Surgery
DX: K56.2 Volvulus (principal); K50.912 Crohn's disease, unspecified, with intestinal obstruction; R17 Unspecified jaundice; Z68.1 Body mass index [BMI] 19.9 or less, adult; Z90.49 Acquired absence of other specified parts of digestive tract; J45.909 Unspecified asthma, uncomplicated; Z92.3 Personal history of irradiation; Z88.5 Allergy status to narcotic agent; Z79.890 Hormone replacement therapy; Z87.442 Personal history of urinary calculi; K21.9 Gastro-esophageal reflux disease without esophagitis; E80.4 Gilbert syndrome; D64.9 Anemia, unspecified; R63.6 Underweight
CPT/HCPCS: 43752; 71045; 74018; 74177; 80053; 82248; 82962; 82977; 83010; 83036; 83605; 83615; 83690; 85025; 85027; 85045; 96374; 96375; 99291; Q9967

== ENCOUNTER 2024-07-17 07:32 | Emergency (ER) | payer MEDICARE, OTHER, SELFPAY ==
[2024-07-17 07:34] VITALS: BP 177/82
--- NOTE | 2024-07-17 08:04 | ED.GENMED ---
History of Present Illness
General
Chief Complaint: Flank Pain
Time Seen by Provider: 07/17/24 08:04
History of Present Illness
History of Present Illness:
TIME OF INITIAL ENCOUNTER: 8:05 AM
HPI: At about 3 AM this morning, the patient was awakened by rather severe left lower quadrant/left flank pain. This feels like prior stones. She does not have any fevers. She had urinary hesitancy. She was recently here with a bowel obstruction
managed nonoperatively. This is associated with nausea.
EXAM:
GENERAL: Well appearing but in mild to moderate distress
HEENT: Moist oral mucosa
CARDIOVASCULAR: No murmurs, normal heart rate, regular rhythm, No chest wall tenderness
PULMONARY: No respiratory distress, breath sounds are clear and equal
ABDOMEN: Soft with no peritoneal signs, mild left lower quadrant tenderness
NEUROLOGIC: Excellent strength all extremities, no coordination deficits
PSYCHIATRIC: Appropriate mental status, normal insight and judgement
EXTREMITIES: Nontender, no edema, moves all extremities equally
SKIN: No rash, no lesions
NUMBER AND COMPLEXITY OF PROBLEMS ADDRESSED AT THE ENCOUNTER
� Chronic conditions affecting care: Acoustic neuroma, asthma, Crohn's, has had kidney stones
� Acute Exacerbation and/or Progression of Chronic Illness: This is an acute problem
� Differential Diagnosis includes: Ureteral stone/colic, UTI, pyelonephritis, very unlikely aortic dissection
AMOUNT AND/OR COMPLEXITY OF DATA TO BE REVIEWED AND ANALYZED
� I performed an independent evaluation of and my interpretation is:
EKG:
CT: CT shows a 5 mm stone at the left UVJ associated with hydronephrosis on the left
X-rays:
Laboratory Studies: Urinalysis shows blood along with 60-70 white cells per high-powered field
Other:
� Review of other/old records: I reviewed old records, the patient was seen here less than 1 month ago and had a small bowel volvulus managed nonoperatively
� Clinical information was obtained by an independent historian: I spoke to her son at bedside who is an oncologist here
� Prescriptions/Medications Considered but not given:
� Further testing considered but not performed:
RISK OF COMPLICATIONS AND/OR MORBIDITY OR MORTALITY OF PATIENT MANAGEMENT
� Social determinants of health affecting care: Lives at home by herself
� Discussion with other providers: Notify Dr. Vogt of patient's presentation.
� Escalation of care including admission/observation vs risk of discharge considered: The patient is given Toradol, fluids and Zofran.
ANY OTHER UPDATES:
The patient is very difficult access and I did attempt ultrasound-guided right upper extremity line however this was unsuccessful twice. I was able to obtain blood though.
10:45 AM: On reassessment, the patient feels much improved. She does report a little bit discomfort related to the cath for repeat urinalysis. She is eager to go home.
Past History
Past History
ED Past Medical History: Asthma and Other (Vertigo, Crohns, Renal calculus, Anemia, Bowel obstructions. )
ED Past Surgical History: Appendectomy and Bowel resection (Colectomy X 5 rectal surgery, )
Social History
Tobacco: Non-smoker
Alcohol: None
Drug: None
Personal:
Living: with family
Phy Exam
Physical Exam
Physical Exam:
See HPI
Course
Orders/Labs/Results
Orders:
Orders
07/17/24 08:11
CT Abd/pel Without Iv Or Oral Urgent
Comment:
Reason For Exam: abrupt LLQ L flank pain prior stones
0.9% Sodium Chloride 1000 ml [Nss] 1,000 ml IV BOLUS
Ketorolac [Toradol] 15 mg IV NOW STA
Ondansetron Injectable [Zofran] 4 mg IV NOW STA
07/17/24 08:23
Urinalysis Reflex To Culture Urgent
Date Specimen was Collected: 07/17/24
Time Specimen was Collected: 07:42
Urine Microscopic Reflex Cult Urgent
Urine Culture Urgent
TIFFANIE Source: U
Specimen Description:
Date Specimen was Collected: 07/17/24
Time Specimen was Collected: 07:42
07/17/24 08:32
Ketorolac [Toradol] 30 mg .ROUTE .STK-MED ONE
07/17/24 08:37
Ondansetron Orally Disint [Zofran Odt (Orally Disintegrating)] 4 mg .ROUTE .STK-MED ONE
07/17/24 09:07
Ketorolac [Toradol] 30 mg IM NOW STA
07/17/24 09:20
Ondansetron Orally Disint [Zofran Odt (Orally Disintegrating)] 4 mg PO NOW STA
07/17/24 09:54
Complete Blood Count/With Diff Urgent
Comprehensive Metabolic Panel Urgent
07/17/24 10:02
Straight cath- Treatment ONCE
07/17/24 10:15
Urinalysis Reflex To Culture Urgent
Date Specimen was Collected: 07/17/24
Time Specimen was Collected: 10:13
Urine Microscopic Reflex Cult Urgent
Abnormal Lab Results
07/17/24 07/17/24 07/17/24
0823 09:54 10:15
RBC 4.19 L 10^6/uL
(4.20-5.40)
Abs Immat Gran (auto) 0.1 H 10^3/uL
(0-0.05)
Absolute Neuts (auto) 9.0 H 10^3/uL
(1.4-6.5)
Absolute Lymphs (auto) 0.5 L 10^3/uL
(1.2-3.4)
Immature Gran % 0.6 H %
(0-0.5)
Neutrophils % 90.1 H %
(42.2-75.2)
Lymphocytes % 5.4 L %
(20.5-51.1)
BUN 23 H mg/dl
(7-17)
Glucose 110 H mg/dl
(70-99)
Total Bilirubin 2.8 H mg/dl
(0.2-1.3)
Ur Occult Blood Reflex 2+ A 4+ A
(Negative) (Negative)
Leukocyte Esterase Rfl 2+ A
(Negative)
Urine RBC 11-15 A /HPF
(0-2)
Urine WBC (Reflex) 60-70 A /HPF
(0-5)
Urine Bacteria (Reflex) Moderate A Few A
(Negative) (Negative)
07/17/24 09:54
07/17/24 09:54
Vital Signs
Initial and Last Documented VS:
Initial Vital Signs
Temp Pulse Resp BP Pulse Ox
36.7 C 68 18 177/82 98
07/17/24 07:34 07/17/24 07:34 07/17/24 07:34 07/17/24 07:34 07/17/24 07:34
Last Documented Vital Signs
Temp Pulse Resp BP Pulse Ox
36.7 C 68 18 120/66 99
07/17/24 07:34 07/17/24 07:34 07/17/24 07:34 07/17/24 11:00 07/17/24 11:00
*Critical Care Note
Total Time (30-74mins, 75-104mins- exclusive of procedures): Not Applicable
ED Attending Note
-
Portions of this chart may have been created with voice recognition software.� Occasional wrong word or��sound alike� substitutions may have occurred due to the inherent limitations of voice recognition software.
Discharge Plan
Departure
Patient Disposition: Home (Routine Discharge)
Date of Disposition: 07/17/24
Time of Disposition: 10:57
Patient with high blood pressure during this ER visit?: Yes
Discharge Problem:
Left ureteral stone
Instructions: Kidney Stones (DC), How to Strain Your Urine, BLOOD PRESSURE, Narcotic Pain Medication
Prescriptions:
New
oxycodone-acetaminophen [Percocet] 5-325 mg tablet
1 - 2 tab PO Q6HPRN PRN (Reason: pain) Qty: 14 0RF
ondansetron HCl 4 mg tablet
4 mg PO Q6H Qty: 14 0RF
tamsulosin [Flomax] 0.4 mg capsule
0.4 mg PO DAILY Qty: 14 0RF
No Action
cetirizine 10 MG tablet
10 mg PO HS
omeprazole 20 MG capsule,delayed release(DR/EC)
20 mg PO HS
fluticasone propionate 1 SPRAY spray,suspension
1 spray intranasal HS
calcium citrate-vitamin D3 [Citracal + D Maximum] 1 EACH tablet
2 ea PO QPM
guaifenesin [Mucus Relief ER] 600 MG tablet extended release 12hr
600 mg PO DAILYPRN PRN (Reason: cough/congestion)
biotin 5,000 MCG tablet,disintegrating
5,000 mcg PO HS
fluticasone propion-salmeterol [Wixela Inhub] 250-50 mcg/dose Blister With Device
1 inh INHALATION R HS
estradiol 0.025 mg/24 hr Patch Weekly
1 patch TRANSDERMAL
Rx Instructions:
change on saturday, on right flank 06/21/2024
montelukast 10 mg Tablet
10 mg PO HS
azelastine 137 mcg (0.1 %) Aerosol,[place]
1 spray INTRANASAL DAILY
progesterone micronized 100 mg Capsule
100 mg PO HS
cholecalciferol (vitamin D3) [Vitamin D3] 125 mcg (5,000 unit) Tablet
125 mcg PO HS
cyanocobalamin (vitamin B-12) 1,000 mcg Tablet
1,000 mcg PO HS
famotidine 20 mg Tablet
20 mg PO DAILY PRN (Reason: heartburn/indigestion)
albuterol sulfate 90 mcg/actuation Hfa Aerosol Inhaler
2 puff INHALATION R Q6 PRN (Reason: sob/wheezing)
cholestyramine (with sugar) 4 gram powder in packet
1 ea PO BID
psyllium Packet
1 packet PO HS
Referrals:
Troy Diaz MD [Family Provider] -
Activity Restrictions/Additional Instructions:
I notified Dr. Vogt of your evaluation today. Your kidney function is normal. Your white blood cell count is normal. The repeat urinalysis which was catheterized shows no sign of infection. You have a 5 mm stone at the junction of the bladder
and the left ureter. Return here if worse or other concerns. If you take Percocet, I recommend taking some like MiraLAX to help prevent constipation.
Interventions
Interventions:
*Risk Screen - Suicide Last Done: 07/17/24 07:34
*General Assessment Last Done: 07/17/24 07:34
*Neglect/Abuse Screening Last Done: 07/17/24 10:00
ED- Fall Risk Assessment Last Done: 07/17/24 11:45
*ED COVID-19 Vaccine History Last Done: 07/17/24 07:34
*Nursing Disposition Last Done: 07/17/24 11:45
OD-Gairrt-Tpbuubrbzz Assessment Last Done: 07/17/24 09:00
ED-Female Genitourinary Assessment Last Done: 07/17/24 09:00
Discharge Date and Time
Discharge Date/Time: 07/17/24 11:45
Print Language: LITHUANIAN
[2024-07-17 08:21] VITALS: BMI 3070.5
[2024-07-17 08:33] LABS: Urine Albumin Trace (Neg - Trace); Urine Bilirubin Negative (Negative); Urine Character Clear (Clear); Urine Color Yellow; Urine Glucose Negative (Negative); Urine Ketone Negative (Negative); Urine Leukocyte 2+ (Negative); Urine Nitrite Negative (Negative); Urine Occult Blood 2+ (Negative); Urine Specific Gravity 1.025 (<1.030); Urine Urobilinogen Negative (Neg - 1+)
[2024-07-17] MEDS: TORADOL 30 MG IM (08:35)
[2024-07-17 08:48] LABS: Urine Squamous Cell >30 /LPF (Few)
[2024-07-17 08:49] LABS: Urine Calcium Oxalate Crystals Seen
[2024-07-17 08:50] LABS: Urine White Cell 60-70 /HPF (0-5)
[2024-07-17 08:51] LABS: Urine Bacteria Moderate (Negative); Urine Red Blood Cell 0-2 /HPF (0-2)
[2024-07-17 08:52] LABS: Urine Hyaline Cast 0-2 /LPF (0-2)
[2024-07-17] MEDS: ZOFRAN ODT (ORALLY DISINTEGRATING) 4 MG PO (09:00)
[2024-07-17 10:04] LABS: % Basophils 0.3 % (0-2); % Eosinophils 0.1 % (0-6); % Immature Granulocytes 0.6 % (0-0.5); % Lymphocytes 5.4 % (20.5-51.1); % Monocytes 3.5 % (1.7-9.3); % Neutrophils 90.1 % (42.2-75.2); Absolute Immature Granulocytes 0.1 10^3/uL (0-0.05); Absolute Lymphocytes 0.5 10^3/uL (1.2-3.4); Absolute Monocytes 0.4 10^3/uL (0.1-0.6); Hematocrit 38.4 % (37.0-47.0); Hemoglobin 12.9 g/dL (12.0-16.0); Mean Corp Hgb Conc. 33.6 g/dL (33.0-37.0); Mean Corpuscular Hgb 30.8 pg (27.0-31.0); Mean Corpuscular Volume 91.6 fL (81.0-99.0); Mean Platelet Volume 8.9 fL (7.4-10.4); Nucleated Red Blood Cells % 0 %; Platelet Count 149 10^3/uL (130-400); Red Blood Cell Count 4.19 10^6/uL (4.20-5.40); Red Cell Dist. Width 13.8 % (11.5-14.5)
[2024-07-17 10:19] LABS: ALT (SGPT) 19 U/L (0-35); AST (SGOT) 29 U/L (14-36); Albumin 4.1 g/dl (3.5-5.0); Alkaline Phosphatase 70 U/L (38-126); Blood Urea Nitrogen 23 mg/dl (7-17); Calcium 9.1 mg/dl (8.4-10.2); Carbon Dioxide 26 mmol/L (22-30); Chloride 104 mmol/L (98-107); Estimated Creatinine Clearance -21 ml/min; Glucose 110 mg/dl (70-99); Potassium 4.4 mmol/L (3.5-5.1); Sodium 136 mmol/L (135-145); Total Bilirubin 2.8 mg/dl (0.2-1.3); eGFR > 60.00
[2024-07-17 10:23] VITALS: BP 126/58
[2024-07-17 10:24] LABS: Urine Albumin Trace (Neg - Trace); Urine Bilirubin Negative (Negative); Urine Character Clear (Clear); Urine Color Yellow; Urine Glucose Negative (Negative); Urine Ketone Negative (Negative); Urine Leukocyte Negative (Negative); Urine Nitrite Negative (Negative); Urine Occult Blood 4+ (Negative); Urine Specific Gravity 1.025 (<1.030); Urine Urobilinogen Negative (Neg - 1+)
[2024-07-17 10:37] VITALS: BP 125/59
[2024-07-17 10:44] LABS: Urine Bacteria Few (Negative)
[2024-07-17 10:45] LABS: Urine Calcium Oxalate Crystals Seen; Urine Squamous Cell 0-2 /LPF (Few)
[2024-07-17 10:46] LABS: Urine Amorphous Seen; Urine Mucus Few
[2024-07-17 11:00] VITALS: BP 120/66
== END 2024-07-17 11:45 | disposition home or self-care (01) ==
LOC: EMR 07:32
PROVIDERS: Emergency Medicine; EMERGENCY PHYSICIAN Emergency Medicine; FAMILY PHYSICIAN Family Medicine
DX: N13.2 Hydronephrosis with renal and ureteral calculous obstruction (principal); J45.909 Unspecified asthma, uncomplicated; K50.012 Crohn's disease of small intestine with intestinal obstruction; Z87.442 Personal history of urinary calculi; Z90.49 Acquired absence of other specified parts of digestive tract
CPT/HCPCS: 99284; 96372; 74176; 80053; 81003; 81015; 85025; 87086

== ENCOUNTER → 2024-08-24 11:28 | Outpatient (REF) | payer MEDICARE, OTHER, SELFPAY | LOC: WDC 11:28 | PROVIDERS: ATTENDING PHYSICIAN Obstetrics & Gynecology; FAMILY PHYSICIAN Family Medicine | DX: Z12.31 Encounter for screening mammogram for malignant neoplasm of breast (principal) | CPT/HCPCS: 77063; 77067 ==

== ENCOUNTER 2024-09-22 14:42 | Inpatient (IN) | payer MEDICARE, OTHER, SELFPAY ==
[2024-09-22] VITALS (14 sets, daily range): BP systolic 104–145; BP diastolic 62–90; BMI 20.9
--- NOTE | 2024-09-22 10:50 | ED.GENMED ---
History of Present Illness
<Fernando Katz PA-C - Last Filed: 09/22/24 13:15>
General
Chief Complaint: Abdominal Pain
Source: patient
Exam Limitations: none
Time Seen by Provider: 09/22/24 10:29
History of Present Illness
History of Present Illness:
83-year-old female presents with onset of abdominal pain last evening. She notes distention of her abdomen and nausea but no vomiting. She notes loose stool. She has a history of multiple bowel surgeries and has had multiple bowel obstructions.
This feels similar. She denies chest pain or shortness of breath. She also notes headache over the past several days at times was severe but is improved at this time. She denies vomiting. There has been no fever. No cough. No other complaints
Past History
<TATO Oliva Last Filed: 09/22/24 13:15>
Past History
ED Past Medical History: Asthma and Other (Vertigo, Crohns, Renal calculus, Anemia, Bowel obstructions. )
ED Past Surgical History: Appendectomy and Bowel resection (Colectomy X 5 rectal surgery, )
Social History
Tobacco: Non-smoker
Alcohol: None
Drug: None
Personal:
Living: with family
Phy Exam
<TATO Oliva Last Filed: 09/22/24 13:15>
Physical Exam
Physical Exam:
General: Well-appearing female no acute respiratory distress
HEENT: Normocephalic mucosa dry
Heart: Regular rate and rhythm
Lungs: Clear
Abdomen is soft tender to the mid and upper abdomen. Mildly distended no guarding
Extremities: No cyanosis
Skin: Warm no rash
Course
<TATO Oliva Last Filed: 09/22/24 13:15>
Orders/Labs/Results
Orders:
Orders
09/22/24 10:46
CT Abd/pelvis W Iv Cont Urgent
Comment:
Reason For Exam: abdominal pain, nausea
09/22/24 10:47
CT Head W/o Iv Contrast Urgent
Comment:
Reason For Exam: headache
09/22/24 10:53
CT Cervical Spine W/o Iv Contr Urgent
Comment:
Reason For Exam: neck pain
09/22/24 11:15
Complete Blood Count/With Diff Urgent
Comprehensive Metabolic Panel Urgent
Lipase Urgent
09/22/24 13:04
0.9% Sodium Chloride 1000 ml [Nss] 1,000 ml IV BOLUS
Abnormal Lab Results
09/22/24
11:15
Absolute Neuts (auto) 8.9 H 10^3/uL
(1.4-6.5)
Absolute Lymphs (auto) 0.7 L 10^3/uL
(1.2-3.4)
Neutrophils % 89.0 H %
(42.2-75.2)
Lymphocytes % 7.3 L %
(20.5-51.1)
Glucose 125 H mg/dl
(70-99)
Total Bilirubin 2.2 H mg/dl
(0.2-1.3)
Lipase 505 H U/L
(23-300)
09/22/24 11:15
09/22/24 11:15
Vital Signs
Initial and Last Documented VS:
Initial Vital Signs
Temp Pulse Resp BP Pulse Ox
98.2 F 107 16 104/74 95
09/22/24 09:43 09/22/24 09:43 09/22/24 09:43 09/22/24 09:43 09/22/24 09:43
Last Documented Vital Signs
Temp Pulse Resp BP Pulse Ox
98.2 F 91 16 104/74 95
09/22/24 09:43 09/22/24 11:02 09/22/24 09:43 09/22/24 09:43 09/22/24 11:02
<Carlos Pennington MD - Last Filed: 09/22/24 12:49>
Orders/Labs/Results
Orders:
Orders
09/22/24 10:46
CT Abd/pelvis W Iv Cont Urgent
Comment:
Reason For Exam: abdominal pain, nausea
09/22/24 10:47
CT Head W/o Iv Contrast Urgent
Comment:
Reason For Exam: headache
09/22/24 10:53
CT Cervical Spine W/o Iv Contr Urgent
Comment:
Reason For Exam: neck pain
09/22/24 11:15
Complete Blood Count/With Diff Urgent
Comprehensive Metabolic Panel Urgent
Lipase Urgent
09/22/24 13:04
0.9% Sodium Chloride 1000 ml [Nss] 1,000 ml IV BOLUS
Abnormal Lab Results
09/22/24
11:15
Absolute Neuts (auto) 8.9 H 10^3/uL
(1.4-6.5)
Absolute Lymphs (auto) 0.7 L 10^3/uL
(1.2-3.4)
Neutrophils % 89.0 H %
(42.2-75.2)
Lymphocytes % 7.3 L %
(20.5-51.1)
Glucose 125 H mg/dl
(70-99)
Total Bilirubin 2.2 H mg/dl
(0.2-1.3)
Lipase 505 H U/L
(23-300)
09/22/24 11:15
09/22/24 11:15
Vital Signs
Initial and Last Documented VS:
Initial Vital Signs
Temp Pulse Resp BP Pulse Ox
98.2 F 107 16 104/74 95
09/22/24 09:43 09/22/24 09:43 09/22/24 09:43 09/22/24 09:43 09/22/24 09:43
Last Documented Vital Signs
Temp Pulse Resp BP Pulse Ox
98.2 F 91 16 104/74 95
09/22/24 09:43 09/22/24 11:02 09/22/24 09:43 09/22/24 09:43 09/22/24 11:02
<Fernando Katz PA-C - Last Filed: 09/22/24 13:15>
MDM/Problems Addressed
Differential Diagnosis Includes:
Abdominal pain. History of small bowel obstructions. Consider recurrent partial small bowel obstruction versus gastritis versus enteritis
Headache and neck pain. Consider migraine versus degenerative disc disease
<Fernando Katz PA-C - Last Filed: 09/22/24 13:15>
*Critical Care Note
Total Time (30-74mins, 75-104mins- exclusive of procedures): Not Applicable
<Fernando Katz PA-C - Last Filed: 09/22/24 13:15>
Update Note
Update Note:
CT of abdomen consistent with sigmoid volvulus. Fluids ordered. Relayed information to patient. Currently not vomiting. Admit to medicine with colorectal made aware
ED Attending Note
<Fernando Katz PA-C - Last Filed: 09/22/24 13:15>
-
Portions of this chart may have been created with voice recognition software.� Occasional wrong word or��sound alike� substitutions may have occurred due to the inherent limitations of voice recognition software.
<Carlos Pennington MD - Last Filed: 09/22/24 12:49>
ED Attending Note
Patient seen and examined by attending physician: Yes
ED Attending Note:
I have seen and evaluated the patient with a [id number] encounter. I have spoken to the advance practicer provider and involved in the medical history, the physical exam, medical decision making.
Evaluation and management service: agree unless noted differently below.
Results interpretation: agree unless noted differently below.
Focused HPI: 83-year-old female with history as noted presents to the ER primarily for evaluation of abdominal discomfort. She reports that symptoms started last night and have been constant. She reports mild distention. She reports nausea no
vomiting. She had some loose stool yesterday but constipated with less gas today. She reports that symptoms are consistent with prior bowel obstructions�she has known history of multiple bowel surgeries and bowel obstructions in the past. In
addition to the above she is requesting evaluation for some head/neck pain�she says that she had an intense pain in her neck and head on she describes sharp pain left-sided neck radiates up towards the ear. It was worse with movement. It
seems to have resolved now but she was very concerned because he has a history of acoustic neuroma on that side. She is requesting scan to evaluate.
Physical exam: Awake and alert, very pleasant and nondistressed. Tachycardia but otherwise normal vitals. She has no signs of trauma to the head. Cranial nerves are intact. No gross motor or sensory deficits. She has no significant tenderness
in the cervical spine some mild pain on rotation. On abdominal exam she is mildly distended and tympanic. Diffusely tender. Multiple scars from prior surgeries.
Medical Decision Makin-year-old female presents for evaluation of abdominal pain as described above�consistent with prior bowel obstructions. Also requesting evaluation for headache/neck pain as described above. Will check CT of the head
cervical spine. Check CT of the abdomen pelvis. Send basic labs. Provide fluids. Reassess after the above.
Discharge Plan
Departure
Patient Disposition: Admit
Date of Disposition: 09/22/24
Time of Disposition: 13:08
Presentation/result/management discussed w/ accepting MD/DO: Hospitalist
Discharge Problem:
Bowel obstruction
Prescriptions:
No Action
cetirizine 10 MG tablet
10 mg PO HS
omeprazole 20 MG capsule,delayed release(DR/EC)
20 mg PO HS
fluticasone propionate 1 SPRAY spray,suspension
1 spray intranasal HS
calcium citrate-vitamin D3 [Citracal + D Maximum] 1 EACH tablet
2 ea PO QPM
guaifenesin [Mucus Relief ER] 600 MG tablet extended release 12hr
600 mg PO DAILYPRN PRN (Reason: cough/congestion)
biotin 5,000 MCG tablet,disintegrating
5,000 mcg PO HS
fluticasone propion-salmeterol [Wixela Inhub] 250-50 mcg/dose Blister With Device
1 inh INHALATION R HS
estradiol 0.025 mg/24 hr Patch Weekly
1 patch TRANSDERMAL
Rx Instructions:
change on saturday, on right flank 06/21/2024
montelukast 10 mg Tablet
10 mg PO HS
azelastine 137 mcg (0.1 %) Aerosol,[place]
1 spray INTRANASAL DAILY
progesterone micronized 100 mg Capsule
100 mg PO HS
cholecalciferol (vitamin D3) [Vitamin D3] 125 mcg (5,000 unit) Tablet
125 mcg PO HS
cyanocobalamin (vitamin B-12) 1,000 mcg Tablet
1,000 mcg PO HS
famotidine 20 mg Tablet
20 mg PO DAILY PRN (Reason: heartburn/indigestion)
albuterol sulfate 90 mcg/actuation Hfa Aerosol Inhaler
2 puff INHALATION R Q6 PRN (Reason: sob/wheezing)
cholestyramine (with sugar) 4 gram powder in packet
1 ea PO BID
psyllium Packet
1 packet PO HS
oxycodone-acetaminophen [Percocet] 5-325 mg tablet
1 - 2 tab PO Q6HPRN PRN (Reason: pain) Qty: 14 0RF
ondansetron HCl 4 mg tablet
4 mg PO Q6H Qty: 14 0RF
tamsulosin [Flomax] 0.4 mg capsule
0.4 mg PO DAILY Qty: 14 0RF
Referrals:
Troy Diaz MD [Family Provider] -
Interventions
Interventions:
*Risk Screen - Suicide Last Done: 09/22/24 09:43
*General Assessment Last Done: 09/22/24 11:02
*Neglect/Abuse Screening Last Done: 09/22/24 09:43
*ED- Fall Risk Assessment Last Done: 09/22/24 11:02
*ED COVID-19 Vaccine History Last Done: 09/22/24 11:02
Discharge Date and Time
Print Language: TAJIK
[2024-09-22 11:22] LABS: % Basophils 0.3 % (0-2); % Eosinophils 0.1 % (0-6); % Immature Granulocytes 0.3 % (0-0.5); % Lymphocytes 7.3 % (20.5-51.1); Absolute Lymphocytes 0.7 10^3/uL (1.2-3.4); Absolute Monocytes 0.3 10^3/uL (0.1-0.6); Absolute Neutrophils 8.9 10^3/uL (1.4-6.5); Hematocrit 39.5 % (37.0-47.0); Hemoglobin 13.4 g/dL (12.0-16.0); Mean Corp Hgb Conc. 33.9 g/dL (33.0-37.0); Mean Corpuscular Hgb 30.8 pg (27.0-31.0); Mean Corpuscular Volume 90.8 fL (81.0-99.0); Mean Platelet Volume 8.4 fL (7.4-10.4); Nucleated Red Blood Cells % 0 %; Platelet Count 181 10^3/uL (130-400); Red Blood Cell Count 4.35 10^6/uL (4.20-5.40); Red Cell Dist. Width 12.9 % (11.5-14.5)
[2024-09-22 11:32] LABS: ALT (SGPT) 17 U/L (0-35); AST (SGOT) 27 U/L (14-36); Alkaline Phosphatase 76 U/L (38-126); Blood Urea Nitrogen 17 mg/dl (7-17); Calcium 9.7 mg/dl (8.4-10.2); Carbon Dioxide 27 mmol/L (22-30); Chloride 106 mmol/L (98-107); Glucose 125 mg/dl (70-99); Lipase 505 U/L (23-300); Potassium 4.2 mmol/L (3.5-5.1); Sodium 140 mmol/L (135-145); Total Bilirubin 2.2 mg/dl (0.2-1.3); Total Protein 7.2 g/dl (6.3-8.2); eGFR > 60.00
[2024-09-22] MEDS: NSS 1000 IV ×2 (13:29→22:02)
--- NOTE | 2024-09-22 14:18 | W.PN.UPDATE ---
Update Note
Progress Note Update
I personally performed a history and physical exam of the patient and discussed management with the resident. I reviewed the resident's note and agree with the documented findings and plan of care HPI/CC.
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
evening. Patient has a history of recurrent small bowel obstruction and required endoscopy/abdominal surgery in the past. Repeat CT abdomen pelvis showing reoccurrence of small bowel volvulus. By the time I visited patient today patient already
had a bowel movement and abdominal symptoms were much more improved. Patient not voicing any significant abdominal pain and feels more like discomfort/soreness. No nausea at this point. Patient denies of having any other medical complaints and
interested in being discharged if possible.
Patient was also complaining neck pain which has been ongoing from last week. No spasms. Radiation to ER and patient was worried about of acoustic neuroma which patient has remote history of.
HEENT: No pallor, cyanosis, or jaundice. Throat clear.
NECK: Supple. No JVD.
RESPIRATORY: Lungs clear to auscultation.
CVS: S1, S2 normal. RRR. No murmur, rub or gallop.
ABDOMEN: Soft, non-tender. normal BS
EXTREMITIES: No peripheral cyanosis or edema.
CREEL HAND: AOx3. No focal deficits.
CT a/p
Cholelithiasis. No findings to suggest biliary tract dilatation.
Some distal large bowel gaseous distention and some stool including some liquid stool, cannot exclude mild partial and/or early sigmoid volvulus.
Symmetric renal excretion. Small simple left renal cyst and additional subcentimeter low-attenuation left renal lesion too small to characterize.

SB volvulus
History of multiple bowel resection history of low
Sigmoid anastomosis
History of exploratory laparotomy/pexy
-Reported abdominal discomfort/nausea before admission
-Already have some liquid bowel movement in ER
-Abdominal examination benign although minimal bowel sounds to none
-CT abdomen pelvis before bowel movement was showing concern of small bowel volvulus
-Maintain patient n.p.o./IV fluid and antiemetics for now
-Colorectal surgery consulted for further evaluation and help
Neck pain
Acoustic neuroma
-CT head and neck did not show any acute abnormalities
-Symptomatic care at this point
GERD
-Resume PPI
DNR
Heparin subcu
Total time spent : 77 mins
I personally saw and examined the patient.
I have reviewed all diagnostic interpretations and treatment plans as written.
Time includes patient management by me, time spent at the patients bedside, time to review lab and imaging results, discussing patient care, documentation in the medical record, and time spent with the family or caregiver and discussing care plan
with RN/Consultants.
--- NOTE | 2024-09-22 15:00 | CON.CRS ---
Medical History
-
Chief Complaint: abdominal pain
History of Present Illness:
83-year-old female with a past medical history of Crohn's disease and multiple small bowel resections presents to [facility] complaining of abdominal pain and nausea. She denies any vomiting. She also has noticed loose stool
over the past several days. Unfortunately this feels similar to her last small bowel obstruction. She had been previously admitted from 06/21/2024 and discharged on 06/25/2024 for similar issue. She has a history of Crohn's and has had 5 prior
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 She underwent detorsion on 12/13/2023, 04/15/2023, and 03/01/2023 at [facility]. Her last surgery was an exploratory laparotomy for a recurrent small bowel
obstruction and volvulus on 12/13/[address] Armas. At the time of surgery there was a small bowel volvulus and the bowel was viable. They were chronically dilated small bowel loops and a distended ileosigmoid anastomosis. During her last
admission she was found to have another small bowel obstruction due to volvulus proximal to the ileosigmoid anastomosis and she was treated nonoperatively.
She had presented to the ER on 07/17/2024 with left lower quadrant and left flank pain and diagnosed with a left ureteral stone and discharged to home.
Currently she is on cholestyramine and fiber. In the ER her WBC is 10.0. Her vital signs are normal. CT of the abdomen pelvis shows some distal large bowel gaseous distention and some stool including liquid stool, cannot exclude mild partial
and/or early sigmoid volvulus. Simple left renal cyst and additional low-attenuation left renal cyst too small to characterize.There was an addendum after the read was placed. The patient had a prior sigmoid resection and therefore findings do not
represent early or partial sigmoid volvulus. Her last CT scan when she had similar symptoms was on 06/21/2024 which showed probable recurrent focal volvulus in the distal small bowel near the anastomosis causing obstruction. Since admission to the
Er, she has no nausea and passed a bowel movement. Given the above, we are admitting the patient for further surgical evaluation.
Past Medical History
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
Past Surgical History: Appendectomy and Other (Previous colectomies, Last surgery was on 12/13/[address] Armas for Sporter laparotomy for recurrent small bowel obstruction and volvulus. Detorsion of the volvulus and suture pexy was performed.)
Social History
Tobacco: Non-Smoker
Alcohol: None
Drug: None
Family History
Family History: Reviewed & Not Pertinent
Allergies / Home Medications
Allergy/AdvReac Type Severity Reaction Status Date / Time
codeine Allergy Unknown Verified 09/22/24 09:43
seasonal Allergy sneezing Uncoded 09/22/24 09:43
silk sutures Allergy abcess Uncoded 09/22/24 09:43
some dissolvable sutures Allergy Unknown Uncoded 09/22/24 09:43
�Medication �Instructions �Recorded �Confirmed �Type
biotin 5,000 mcg disintegrating 5,000 mcg PO HS Supplement 11/26/17 09/22/24 History
tablet
calcium 315 mg (as 2 ea PO QPM Supplement 11/26/17 09/22/24 History
citrate)-vitamin D3 6.25 mcg (250
unit) tablet (Citracal + Vitamin D
Maximum)
cetirizine 10 mg tablet 10 mg PO HS Allergies 11/26/17 09/22/24 History
fluticasone propionate 50 1 spray intranasal HS Allergies 11/26/17 09/22/24 History
mcg/actuation nasal
spray,suspension
omeprazole 20 mg capsule,delayed 20 mg PO .3X WEEKLY GERD 11/26/17 09/22/24 History
release
azelastine 137 mcg (0.1 %) nasal 1 spray intranasal DAILY Allergies 03/01/23 09/22/24 History
spray
estradiol 0.025 mg/24 hr weekly 1 patch transdermal TU Hormone 03/01/23 09/22/24 History
transdermal patch replacement
fluticasone 250 mcg-salmeterol 50 1 inh inhalation R HS Allergies 03/01/23 09/22/24 History
mcg/dose blistr powdr for
inhalation (Wixela Inhub)
montelukast 10 mg tablet 10 mg PO HS Allergies 03/01/23 09/22/24 History
progesterone micronized 100 mg 100 mg PO HS Hormone replacement 03/01/23 09/22/24 History
capsule
cholestyramine (with sugar) 4 gram 1 ea PO BID High Cholesterol 12/12/23 09/22/24 History
powder for susp in a packet
cyanocobalamin (vitamin B-12) 1,000 mcg PO HS Supplement 12/12/23 09/22/24 History
1,000 mcg tablet
famotidine 20 mg tablet 20 mg PO .4X WEEKLY PRN 12/12/23 09/22/24 History
heartburn/indigestion
psyllium 1 packet PO HS Gastrointestinal 12/12/23 09/22/24 History
Issue
ergocalciferol (vitamin D2) 1,250 1,250 mcg PO WE 09/22/24 09/22/24 History
mcg (50,000 unit) capsule
Review of Systems
-
History Source: Patient
Abdomen/GI: Abdominal Pain, Nausea and Diarrhea
A 10 point review of systems was completed, and was negative except as per HPI.
Physical Exam
Vital Signs
Temp 98.2 F 09/22/24 09:43
Pulse 84 09/22/24 14:07
Resp Rate 16 09/22/24 09:43
Blood pressure 139/67 09/22/24 14:07
SaO2 97 09/22/24 14:07
Lab Results / Allergies
09/22/24 11:15
09/22/24 11:15
WBC 10.0 10^3/uL (4.8-10.8) 09/22/24 11:15
Hgb 13.4 g/dL (12.0-16.0) 09/22/24 11:15
Hct 39.5 % (37.0-47.0) 09/22/24 11:15
Plt Count 181 10^3/uL (130-400) 09/22/24 11:15
Abs Immat Gran (auto) 0.0 10^3/uL (0-0.05) 09/22/24 11:15
Neutrophils % 89.0 % (42.2-75.2) H 09/22/24 11:15
Allergy/AdvReac Type Severity Reaction Status Date / Time
codeine Allergy Unknown Verified 09/22/24 09:43
seasonal Allergy sneezing Uncoded 09/22/24 09:43
silk sutures Allergy abcess Uncoded 09/22/24 09:43
some dissolvable sutures Allergy Unknown Uncoded 09/22/24 09:43
Physical Exam
General: Well Developed, Well Nourished and No Apparent Distress
GI: Soft, Non Tender and Distended (mild)
Skin: Warm and Dry
Neuro: AO x 3
Psych: Calm
Data Reviewed
-
CT Scan: Image Personally Visualized and interpreted, Report Reviewed by me and Discussed with Patient
Labs: Labs Reviewed by me, Discussed with Physician and Discussed with Patient
Old Records: Reviewed
Assessment / Plan
-
IMPRESSION:
83 yo female with a history of crohns disease and several bowel resections and sbos, presents today due to abdominal pain and nausea, found to have 'Some distal large bowel gaseous distention and some stool including some liquid stool'
PLAN:
-No plans for surgery at this time
-Advance diet as tolerated
-Monitor exam
-Continue home medications per primary team
-Zofran IV PRN
--- NOTE | 2024-09-22 15:24 | HPS.HSE ---
Family Physician
-
Family Physician: Troy Diaz
Chief Complaint
-
Abdominal pain and bloating
History of Present Illness
The patient is a 83 years old female has a past medical history of chronic diseases, Diana syndrome, asthma and acoustic neuroma(20 years ago) and with a significant past medical history of multiple bowel surgeries. She presented to the ER this
morning complaining from abdominal pain and bloating since last evening. Additionally, she reported having headache and neck pain. At ER admission she was obtained CT head/cervical which was not remarkable for any acute events. Her
abdominal/pelvis CT noted some gaseous distention with some stool seen especially in bowels and reoccurrence of small bowel volvulus. Her labs resulted was not significant expect elevated lipase levels to 505.
Medical History
Past Medical History
Past Medical History: Reports Asthma and Other (Chron's disease, Gilbert's syndrome, acoustic neuroma(20 years ago-left side))
Past Surgical History: Reports Appendectomy and Bowel Resection (Multiple bowel surgery, total colectomy)
Social History
Tobacco: Non-smoker
Alcohol: None
Drug: None
Personal:
Living: With Family
Family History
Family History: Not pertinent
Allergies / Home Medications
Allergies reflects when Allergies were last updated in [employer].
Home Medications with original date entered in [employer]
Allergy/Medication List:
Allergies
Allergy/AdvReac Type Severity Reaction Status Date / Time
codeine Allergy Unknown Verified 09/22/24 09:43
seasonal Allergy sneezing Uncoded 09/22/24 09:43
silk sutures Allergy abcess Uncoded 09/22/24 09:43
some dissolvable sutures Allergy Unknown Uncoded 09/22/24 09:43
Home Medications
biotin 5,000 mcg disintegrating tablet 5,000 mcg PO HS Supplement 11/26/17
calcium 315 mg (as citrate)-vitamin D3 6.25 mcg (250 unit) tablet (Citracal + Vitamin D Maximum) 2 ea PO QPM Supplement 11/26/17
cetirizine 10 mg tablet 10 mg PO HS Allergies 11/26/17
fluticasone propionate 50 mcg/actuation nasal spray,suspension 1 spray intranasal HS Allergies 11/26/17
omeprazole 20 mg capsule,delayed release 20 mg PO .3X WEEKLY GERD 11/26/17
azelastine 137 mcg (0.1 %) nasal spray 1 spray intranasal DAILY Allergies 03/01/23
estradiol 0.025 mg/24 hr weekly transdermal patch 1 patch transdermal TU Hormone replacement 03/01/23
fluticasone 250 mcg-salmeterol 50 mcg/dose blistr powdr for inhalation (Wixela Inhub) 1 inh inhalation R HS Allergies 03/01/23
montelukast 10 mg tablet 10 mg PO HS Allergies 03/01/23
progesterone micronized 100 mg capsule 100 mg PO HS Hormone replacement 03/01/23
cholestyramine (with sugar) 4 gram powder for susp in a packet 1 ea PO BID High Cholesterol 12/12/23
cyanocobalamin (vitamin B-12) 1,000 mcg tablet 1,000 mcg PO HS Supplement 12/12/23
famotidine 20 mg tablet 20 mg PO .4X WEEKLY PRN heartburn/indigestion 12/12/23
psyllium 1 packet PO HS Gastrointestinal Issue 12/12/23
ergocalciferol (vitamin D2) 1,250 mcg (50,000 unit) capsule 1,250 mcg PO WE 09/22/24
Review of Systems
-
History Source: Patient
EENT: Reports No Symptoms
Respiratory: Reports No Symptoms
Cardiac: Reports No Symptoms
Abdomen/GI: Reports No Symptoms (Abdominal tenderness) and Diarrhea (Chronic diarrhea)
: Reports No Symptoms
Musculoskeletal: Reports See HPI (Neck pain)
Skin: Reports No Symptoms
Neurological: Reports No Symptoms
Physical Exam
Vital Signs
Vital Signs
Temp Pulse Resp BP Pulse Ox
98.2 F 84 16 132/63 96
09/22/24 09:43 09/22/24 14:07 09/22/24 09:43 09/22/24 15:00 09/22/24 15:15
Physical Exam
General: Well Developed, Well Nourished and No Apparent Distress
HEENT: NormoCephalic and Anicteric
Respiratory: Clear and Wheezes
Cardiac: S1/S2 and Regular Rhythm
GI: Soft, Non Tender, Non Distended and Other (Abdominal discomfort to palpation)
Musculoskeletal: No Clubbing and No Cyanosis
Skin: Warm
Neuro: Awake, Alert, Oriented, AO x 3 and Nonfocal/grossly intact
Psych: Calm
Laboratory Results
-
09/22/24 11:15
09/22/24 11:15
Laboratory Results
Total Bilirubin 2.2 mg/dl (0.2-1.3) H 09/22/24 11:15
AST 27 U/L (14-36) 09/22/24 11:15
ALT 17 U/L (0-35) 09/22/24 11:15
Alkaline Phosphatase 76 U/L (38-126) 09/22/24 11:15
Lipase 505 U/L (23-300) H 09/22/24 11:15
Impression/Plan
-
IMPRESSION:
Ms Foster is a 83-year-old female who has a significant past medical history of of chronic diseases complicated with multiple bowel resection and total colectomy and ileosigmoid anastomosis, history of small intestine pexy, history of recurrent SBO
and volvulus who presented to ER with abdominal pain and nausea and feeling bloated starting last evening. Her CT abdomen/pelvis noted small bowel volvulus. The patient was admitted to hospital for management of her symptoms. During her physical
exam with me, patient denied abdominal pain and nausea and reported she felt better following moving her bowels about 30 minutes ago. She denied vomiting, melena and hematochezia. She only reported having some abdominal discomfort on her mid
abdominal area. She was consulted to colorectal surgery and she is a known patient with the team.
Additionally, patient reported chronic neck pain and headache for which she was obtained head/cervical CT which was unremarkable.
PLAN:
#Possible small bowel volvulus
-History of multiple abdominal surgeries due Chrons`s and bowel obstruction
-At ER admission, reported having severe pain and nausea-patient reported resolving her symptoms following having bowel movements at ER
-Colorectal surgery was consulted
-Started on advance diet as tolerated by colorectal surgery
-No plans for surgery at this time
-Zofran IV as needed-EKG ordered to check QTc
-Pain management
-Lipase elevated 505-physical exam and CT findings not suggestive for acute pancreatitis
# Headache and neck pain
-Head and neck CT did not show any acute abnormality
# History of Chron`s disease
-Total colectomy and small bowel resections in the past, per patient report
-No melena, no hematochezia
#Chronic diarrhea
-Continue cholestyramine
# GERD
-Continue PPI
# Asthma
-Continue home inhalers
-Continue antihistaminics for allergies
# History of acoustic neuroma
-Had Radiation 20 years ago-under control
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
# DVT prophylaxis
-Levonox
-CODE STATUS: DNR
[2024-09-22] MEDS: HEPARIN 5000 UNITS SC (22:03)
[2024-09-22] MEDS: ADVAIR HFA 115/21 MCG INHALER 2 PUFF INH (22:44)
[2024-09-22] MEDS: SINGULAIR 10 MG PO (22:52)
--- NOTE | 2024-09-22 23:10 | PTCARENOTE ---
Pt arrived to room 420-01. Pt ambulated from stretcher to bed. Pt AAOx3. Pt oriented to room, call pinzon placed within reach.
[2024-09-23] MEDS: TYLENOL 650 MG PO (04:31)
[2024-09-23 07:00] VITALS: BP 127/67
[2024-09-23] MEDS: PROTONIX 40 MG PO (07:39)
[2024-09-23] MEDS: HEPARIN SC ×3 (07:39→21:56)
[2024-09-23 08:27] LABS: Hemoglobin 12.6 g/dL (12.0-16.0); Mean Corp Hgb Conc. 34.1 g/dL (33.0-37.0); Mean Corpuscular Hgb 31.4 pg (27.0-31.0); Mean Corpuscular Volume 92.3 fL (81.0-99.0); Mean Platelet Volume 8.8 fL (7.4-10.4); Platelet Count 161 10^3/uL (130-400); Red Blood Cell Count 4.01 10^6/uL (4.20-5.40); Red Cell Dist. Width 13.2 % (11.5-14.5); White Blood Cell Count 4.3 10^3/uL (4.8-10.8)
[2024-09-23 09:26] LABS: ALT (SGPT) 15 U/L (0-35); AST (SGOT) 25 U/L (14-36); Albumin 3.8 g/dl (3.5-5.0); Alkaline Phosphatase 64 U/L (38-126); Blood Urea Nitrogen 14 mg/dl (7-17); Calcium 9.1 mg/dl (8.4-10.2); Carbon Dioxide 25 mmol/L (22-30); Chloride 107 mmol/L (98-107); Estimated Creatinine Clearance 40 ml/min; Glucose 106 mg/dl (70-99); Potassium 4.4 mmol/L (3.5-5.1); Sodium 140 mmol/L (135-145); Total Bilirubin 2.9 mg/dl (0.2-1.3); Total Protein 6.6 g/dl (6.3-8.2); eGFR > 60.00
[2024-09-23] MEDS: NSS 1000 IV (11:18)
--- NOTE | 2024-09-23 12:08 | CM ---
CM reviewed chart, patient seen bedside, initial assessment completed. Patient resides in a multiple story home, three steps to enter through garage, two steps through front door. Patient has master bedroom/bathroom on first floor. Patient is
independent with ADLs/IADLs, denies VN, reports history of [facility]. Patient confirms PCP Troy Diaz, pharmacy [facility] [address], confirms prescription coverage. Patient denies needs from CM at this time, does not
anticipated needs from CM upon discharge. Patient previously seen ambulating halls. CM will continue to follow for all discharge planning needs.
Plan; home no needs likely, watch for VN needs.
--- NOTE | 2024-09-23 12:42 | W.PN.HOSP.TC ---
Today's Communication/Plan
-
-Follow colorectal surgery recc to advance diet
-Follow BMP, CBC
Assessment / Plan
Assessment / Plan
PLAN:
#Possible small bowel volvulus
-History of multiple abdominal surgeries due Chrons`s and bowel obstruction
-At ER admission, reported having severe pain and nausea-patient reported resolving her symptoms following having bowel movements at ER
-Colorectal surgery on board
-No plans for surgery at this time
-Tolerated clear liquid diet well
-Has had bowel movements since yesterday pm
-Zofran IV as needed-EKG ordered to check QTc
-Pain management
-Lipase elevated 505-physical exam and CT findings not suggestive for acute pancreatitis
# Headache and neck pain
-Head and neck CT did not show any acute abnormality
# History of Chron`s disease
-Total colectomy and small bowel resections in the past, per patient report
-No melena, no hematochezia
#Chronic diarrhea
-Cholestyramine on hold
# GERD
-Continue PPI
# Asthma
-Continue home inhalers
-Continue antihistaminics for allergies
# History of acoustic neuroma
-Had Radiation 20 years ago-under control
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
# DVT prophylaxis
-Levonox
-CODE STATUS: Full
Anticipated Discharge: 24 - 48 hours
Subjective/Interval History
-
Date of Service: September 23, 2024
Patient denies abdominal pain and reported having bowel movements since yesterday afternoon. Reports having diarrhea at least more than 7 times since yesterday. Reports tolerating oral liquids diet without any abdominal pain.
Objective Data
-
Labs:
Laboratory Results
09/23/24
08:03
WBC 4.3 L
Hgb 12.6
Hct 37.0
Plt Count 161
Sodium 140
Potassium 4.4
Chloride 107
Carbon Dioxide 25
BUN 14
Creatinine 0.9
Glucose 106 H
Calcium 9.1
Total Bilirubin 2.9 H
AST 25
ALT 15
Alkaline Phosphatase 64
Vital Signs:
Vital Signs
Temp Pulse Resp BP Pulse Ox
97.8 F 72 18 127/67 94
09/23/24 07:00 09/23/24 07:00 09/23/24 07:00 09/23/24 07:00 09/23/24 08:00
I&O
09/22/24 09/23/24 09/24/24
06:59 06:59 06:59
Intake Total 240 / 240
Balance 240 / 240
Review of Systems
-
History Source: Patient
Constitutional: Reports No Symptoms
EENT: Reports No Symptoms Reported and Hearing Loss (On the left)
Respiratory: Reports No Symptoms
Cardiac: Reports No Symptoms
Abdomen/GI: Reports No Symptoms
Genitourinary: Reports No Symptoms
Skin: Reports No Symptoms
Neuro: Reports No Symptoms
Physical Exam
-
General: Well Developed, Well Nourished, No Apparent Distress and Comfortable
HEENT: Normocephalic and Atraumatic
Respiratory: Clear to Auscultation
Cardiac: Regular Rhythm and S1/S2
GI: Soft, Nontender, Nondistended and Other (Decreased bowel sounds)
Musculoskeletal: No Clubbing, No Cyanosis and No Edema
Skin: Warm
Neuro: Awake, Alert, Oriented, AO x 3 and Nonfocal/Grossly Intact
[2024-09-23 15:00] VITALS: BP 139/76
--- NOTE | 2024-09-23 18:54 | W.PN.CRS1 ---
Today's Communication / Plan
-
Full liquids.
Assessment/Plan
-
Recurrent small bowel volvulus.
Clinically improved.
Will advance her diet slowly (full liquids for now).
Possible LRD tomorrow and discharge if ok.
She wants to think about surgery in the near future and hopes to avoid it at the present time.
Subjective Data
Subjective Data
Date of Service: September 23, 2024
Patient seen and examined at 7:00am. Overall she feels better but still with some lower abdominal cramping. She is passing some flatus. She is tolerating clears but no appetite.
Objective Data
-
Vital Signs
Temp Pulse Resp BP Pulse Ox
98.2 F 81 16 139/76 96
09/23/24 15:00 09/23/24 15:00 09/23/24 15:00 09/23/24 15:00 09/23/24 15:00
Intake & Output
09/22/24 09/23/24 09/24/24
06:59 06:59 06:59
Intake Total 240 / 240 690 / 690
Balance 240 / 240 690 / 690
Intake:
Oral fluids 240 / 240 690 / 690
Other:
Number of approximated MODERATE 1 1
amounts of urine
Lab Results
09/23/24 08:03
09/23/24 08:03
Physical Exam
-
General: No Acute Distress
Abdomen: Soft, Non Distended and Non Tender
[2024-09-23] MEDS: ADVAIR HFA 115/21 MCG INHALER 2 PUFF INH (21:14)
[2024-09-23] MEDS: SINGULAIR 10 MG PO (21:58)
[2024-09-23 23:00] VITALS: BP 124/66
--- NOTE | 2024-09-24 06:18 | W.PN.HOSP.TC ---
Addendum entered and electronically signed by Roger Tyson MD 09/24/24 13:57:
I saw and evaluated the patient. I reviewed the resident�s note and agree with findings and plan as documented in the resident�s note.
SB volvulus
History of multiple bowel resection history of low
Sigmoid anastomotic
History of exploratory laparotomy/pexy
-Reported abdominal discomfort/nausea before admission
-Already have some liquid bowel movement in ER
-Abdominal examination benign although minimal bowel sounds to none
-CT abdomen pelvis before bowel movement was showing concern of small bowel volvulus
-Patient to be started on low residue diet, if able to advance for discharge later today
-Colorectal surgery evaluated and discussed possible elective surgery for recurrent SBO volvulus, patient wants to consider and will follow-up in the office.
Neck pain
Acoustic neuroma
-CT head and neck did not show any acute abnormalities
-Symptomatic care at this point
GERD
-Resume PPI
DNR
SCD
More than 30 minutes spent in discharge including
Final examination of the patient
Summarizing hospital stay
Instructions for continuing care to all relevant caregivers
Preparation of discharge records, prescriptions, and referral forms
Total time spent (in minutes): 38 mins
Original Note:
Today's Communication/Plan
-
- Her diet advance to low residue diet
-Discharge plan can be considered if she tolerates her diet
Assessment / Plan
Assessment / Plan
PLAN:
#Possible small bowel volvulus
-History of multiple abdominal surgeries due Chrons`s and bowel obstruction
-Already have some liquid bowel movement in ER-symptoms mostly improved following it
-Tolerated clear liquid diet well yesterday and advance to low residue diet today-can be discharged if she tolerates her low residue diet
-Colorectal surgery on board
-Have been having liquid stool/diarrhea since the admission
-Zofran IV as needed
-Pain management
-Lipase elevated 505-physical exam and CT findings not suggestive for acute pancreatitis
# Headache and neck pain
-Head and neck CT did not show any acute abnormality
# History of Chron`s disease
-Total colectomy and small bowel resections in the past, per patient report
-No melena, no hematochezia
#Chronic diarrhea
-Continue cholestyramine
# GERD
-Continue PPI
# Asthma
-Continue home inhalers
-Continue antihistaminics for allergies
# History of acoustic neuroma
-Had Radiation 20 years ago-under control
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
# DVT prophylaxis
-Levonox
-CODE STATUS: Full
Anticipated Discharge: 24 - 48 hours
Subjective/Interval History
-
Date of Service: September 24, 2024
Patient denies any abdominal pain or feeling bloated. She is passing bowel movements and has flatulence since admission. She tolerated full clear liquid diet yesterday without any problem.
Objective Data
-
Labs:
Laboratory Results
09/24/24
06:00
WBC Pending
Hgb Pending
Hct Pending
Plt Count Pending
Sodium Pending
Potassium Pending
Chloride Pending
Carbon Dioxide Pending
BUN Pending
Creatinine Pending
Glucose Pending
Calcium Pending
Total Bilirubin Pending
AST Pending
ALT Pending
Alkaline Phosphatase Pending
Vital Signs:
Vital Signs
Temp Pulse Resp BP Pulse Ox
98.1 F 70 18 124/66 96
09/23/24 23:00 09/23/24 23:00 09/23/24 23:00 09/23/24 23:00 09/23/24 23:00
I&O
09/22/24 09/23/24 09/24/24
06:59 06:59 06:59
Intake Total 240 / 240 690 / 690
Balance 240 / 240 690 / 690
Review of Systems
-
History Source: Patient
Constitutional: Reports No Symptoms
EENT: Reports No Symptoms Reported and Hearing Loss (On the left)
Respiratory: Reports No Symptoms
Cardiac: Reports No Symptoms
Abdomen/GI: Reports Diarrhea
Genitourinary: Reports No Symptoms
Musculoskeletal: Reports No Symptoms
Skin: Reports No Symptoms
Neuro: Reports No Symptoms
Physical Exam
-
General: Well Developed, Well Nourished, No Apparent Distress and Comfortable
HEENT: Normocephalic and Atraumatic
Respiratory: Clear to Auscultation
Cardiac: Regular Rhythm and S1/S2
GI: Soft, Nontender, Nondistended and Normal Bowel Sounds
Musculoskeletal: No Clubbing, No Cyanosis and No Edema
Neuro: Awake, Alert, Oriented, AO x 3 and Nonfocal/Grossly Intact
Psych: Calm
[2024-09-24 06:59] LABS: Hematocrit 33.8 % (37.0-47.0); Hemoglobin 11.8 g/dL (12.0-16.0); Mean Corp Hgb Conc. 34.9 g/dL (33.0-37.0); Mean Corpuscular Hgb 31.4 pg (27.0-31.0); Mean Corpuscular Volume 89.9 fL (81.0-99.0); Mean Platelet Volume 8.6 fL (7.4-10.4); Platelet Count 141 10^3/uL (130-400); Red Blood Cell Count 3.76 10^6/uL (4.20-5.40); Red Cell Dist. Width 12.9 % (11.5-14.5)
[2024-09-24 07:00] VITALS: BP 137/72
[2024-09-24 07:21] LABS: ALT (SGPT) 14 U/L (0-35); AST (SGOT) 24 U/L (14-36); Albumin 3.3 g/dl (3.5-5.0); Alkaline Phosphatase 52 U/L (38-126); Blood Urea Nitrogen 10 mg/dl (7-17); Calcium 8.9 mg/dl (8.4-10.2); Carbon Dioxide 26 mmol/L (22-30); Chloride 108 mmol/L (98-107); Estimated Creatinine Clearance 45 ml/min; Glucose 98 mg/dl (70-99); Potassium 3.9 mmol/L (3.5-5.1); Sodium 140 mmol/L (135-145); Total Bilirubin 2.3 mg/dl (0.2-1.3); Total Protein 5.9 g/dl (6.3-8.2); eGFR > 60.00
[2024-09-24] MEDS: NSS IV ×2 (08:54→09:03)
[2024-09-24] MEDS: HEPARIN SC (09:10)
--- NOTE | 2024-09-24 11:32 | W.PN.CRS1 ---
Today's Communication / Plan
-
low residue diet
ok to dc from our perspective if tolerates
Assessment/Plan
-
Recurrent small bowel volvulus.
-Clinically improved.
-Advance to low residue
-OKay to discharge from our perspective if tolerating
-She wants to think about surgery in the near future and hopes to avoid it at the present time. I have asked wound RN to give her some literature/teaching about ileostomy care, should she pursue this option in the future.
Subjective Data
Subjective Data
Date of Service: September 24, 2024
Patient states she feels well. She has no complaints. Denies nausea or vomiting. She has no pain.
Objective Data
-
Vital Signs
Temp Pulse Resp BP Pulse Ox
98.3 F 67 18 137/72 96
09/24/24 07:00 09/24/24 07:00 09/24/24 07:00 09/24/24 07:00 09/24/24 07:00
Intake & Output
09/23/24 09/24/24 09/25/24
06:59 06:59 06:59
Intake Total 240 / 240 1170 / 1170
Balance 240 / 240 1170 / 1170
Intake:
Oral fluids 240 / 240 1170 / 1170
Other:
Number of approximated MODERATE 1 3
amounts of urine
Lab Results
09/24/24 06:31
09/24/24 06:31
Physical Exam
-
General: No Acute Distress and AOx3
Abdomen: Soft, Non Distended and Non Tender
Skin: Warm and Dry
--- NOTE | 2024-09-24 11:48 | PN.CDI ---
CDI
- -
CDI:
Physician Documentation Request
Admit Date: 09/22/24 14:42
Dear Doctor Pawel,
Patient presented to ED with abdominal pain and nausea.
Per surgery consultation she underwent 'Several bowel resections (3 in her 20's and 2 in her 30's) for Crohn's disease leaving her with a relatively short length of small bowel with a small bowel to proximal rectal anastomosis.....early 2022 when
she developed a small bowel obstruction. She was admitted to [facility] and a CT was consistent with a small bowel volvulus. Her condition improved with nonoperative management but since that time has had several partial small bowel
obstructions. Her condition worsened and she came to our ED on 03/01/23 I performed a laparotomy with a suture pexy of the segment with volvulus....
I performed a laparotomy on 12/13/23 at which time there was a recurrence of the volvulus of the same segment of dilated small bowel just proximal to her small bowel-rectal anastomosis. I performed another pexy of the segment as well as above and
below the area.......I suspect she is have recurrent, intermittent volvulus of the small bowel'
Please clarify if a relationship exist between these conditions:
Yes, volvulus is related to/associated with/due to prior small bowel surgery
No, volvulus is not related to/associated with/due to prior small bowel surgery
Unable to determine
Use of terms such as suspected, likely, concern for, or probable (associated with a specific diagnosis that is being evaluated, monitored, or treated as if it exists) are acceptable and can be coded in the inpatient setting, when documented at the
time of discharge.
Thank you,
Diandra Ambrose RN, BSN
CDI Specialist
tiger text
Please use your independent medical judgment in providing your response.
--- NOTE | 2024-09-24 15:11 | CM ---
Patient is stable for d/c today.
Met w/ patient bedside, agreeable to d/c. Patient's son is a physician at and will transport her home
IMM verbally reviewed, patient given copy, copy placed on chart
No CM needs identified at this time
Plan: Home; no needs
[2024-09-24 15:16] VITALS: BP 122/65
--- NOTE | 2024-09-24 15:20 | WOUNDNOTE ---
[facility] RN NOTE: Consult requested by Colorectal surgery for ileostomy education. Reviewed chart and met with patient. Patient is considering ileostomy as discussed with Dr. Armas. Patient given ileostomy handbook and this radio news writer explained ostomy care
and demonstrated use of pouch appliance. Patient expressed many concerns/worries and said she needs more time to make a decision. All questions answered. Patient has furnace clerk's contact information in the case she would like to call with a question.
An hour of time was spent with patient discussing her concerns and answering questions. WILLIAM Nunes given update. Plan is for discharge home today.
--- NOTE | 2024-09-24 16:39 | W.DCSUMMARY ---
Discharge Summary
Discharge Data
Date of Admission: 09/22/24
Date of Discharge: 09/24/24
-
Pending Results: No
Hospital Course
Disposition : Home with home care
Primary care physician : Troy Diaz MD
Principal Discharge diagnosis : Small bowel volvulus, ileus, head and neck pain
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
Hospital Course :
Small bowel volvulus and ileus : Ms Foster is a 83 years old pleasant female with a significant past medical history of multiple bowel surgeries. She presented to the ER complaining from abdominal pain and bloating. Additionally, she reported
having headache and neck pain. At ER admission she was obtained CT head/cervical which was not remarkable for any acute events. Her abdominal/pelvis CT noted some gaseous distention with some stool seen especially in bowels and reoccurrence of
small bowel volvulus. Her labs resulted was not significant expect elevated lipase levels to 505. Following admission, the patient had bowel movements and reported feeling much better. She is a well-known patient of colorectal surgery and was
consulted to the CRC team. Because her symptoms mostly resolved, colorectal surgery started full liquid diet and gradually advanced it to residue diet. She tolerated her diet without any complaints. The patient was recommend top have follow up with
colorectal surgery team.
Head and Neck pain: Patient reported increased neck and head pain and obtained CT for it. Her cervical spinal CT and head CT was not remarkable for any acute changes.
Important imaging findings :
09/22/[address]
FINDINGS:
CHEST:The included lung bases contain some mild subsegmental atelectasis and/or scarring, right lower lobe greater than left.
ABDOMEN:Gallstones are noted within the gallbladder. There are no findings to suggest biliary tract dilatation. There is no focal intrinsic abnormality of the liver, spleen, relative atrophic pancreas or adrenal glands. There is a small simple lower
pole left renal cyst and additional subcentimeter posterior low-attenuation left renal lesion too small to characterize, latter image 27 series 401. Renal excretion is symmetric. The abdominal aorta is normal in caliber with calcific atherosclerotic
changes. There is no retroperitoneal lymphadenopathy. Evaluation of the intestinal tract is markedly limited without oral contrast and with marked paucity of intra-abdominal fat there is some gaseous distention with some stool seen especially in the
distal large bowel, cannot exclude mild partial or early sigmoid volvulus. There is no free air.
PELVIS:Urinary bladder is incompletely opacified and incompletely distended without gross focal intrinsic abnormality. There is no true pelvis free fluid or significant lymphadenopathy.
SKELETON:Degenerative changes and marked levoscoliosis of the lumbar spine are seen.
IMPRESSION:
Cholelithiasis. No findings to suggest biliary tract dilatation.
Some distal large bowel gaseous distention and some stool including some liquid stool, cannot exclude mild partial and/or early sigmoid volvulus.
Symmetric renal excretion. Small simple left renal cyst and additional subcentimeter low-attenuation left renal lesion too small to characterize.
09/22/[address]
FINDINGS:
Unenhanced CT imaging of the head reveals no findings to suggest recent infarction, intracranial hemorrhage, extra-axial fluid collection, mass effect or midline shift. The ventricles, cisterns and sulci are slightly prominent commensurate with age.
The brainstem and posterior fossa structures demonstrate no significant focal abnormality.
IMPRESSION:
No acute intracranial abnormality.
09/22/[address]:
FINDINGS:
The spine is in anatomic alignment.
The vertebral body heights are maintained.
Hypertrophic degenerative changes are noted throughout.
There is disc space narrowing compatible with degenerative disc disease most prominent at the C3-C4 and especially the C5-C6 levels.
There are no findings to suggest recent cervical spine fracture.
The prevertebral soft tissues are unremarkable..
The mastoid air cells are approximately equally aerated bilaterally.
The included tips of the lung apices contain some scarring.
IMPRESSION:
Degenerative changes.
There is a clinical suspicion for cervical disc herniation, recommend MRI for more complete evaluation.
No findings to suggest recent cervical spine fracture.
Procedure findings :
Discharge Plan
-
Patient Disposition: Home with Home Care
Discharge Diagnosis/Procedures: Small bowel volvulus, ileus
Condition: Fair
Diet: Low Residue
Activity: As tolerated
Driving Restrictions: As prior to admission
Bathing Restrictions: OK to Shower
Instructions: Low-fiber diet
Referrals:
Josef Armas MD [Active] - in four to six weeks
Troy Diaz MD [Family Provider] - in one week
Prescriptions:
Continued
cetirizine 10 MG tablet
10 mg PO HS
omeprazole 20 MG capsule,delayed release(DR/EC)
20 mg PO .3X WEEKLY
fluticasone propionate 1 SPRAY spray,suspension
1 spray intranasal HS
calcium citrate-vitamin D3 [Citracal + D Maximum] 1 EACH tablet
2 ea PO QPM
biotin 5,000 MCG tablet,disintegrating
5,000 mcg PO HS
fluticasone propion-salmeterol [Wixela Inhub] 250-50 mcg/dose Blister With Device
1 inh INHALATION R HS
estradiol 0.025 mg/24 hr Patch Weekly
1 patch TRANSDERMAL
Rx Instructions:
change on saturday, on right flank 06/21/2024
montelukast 10 mg Tablet
10 mg PO HS
azelastine 137 mcg (0.1 %) Aerosol,[place]
1 spray INTRANASAL DAILY
progesterone micronized 100 mg Capsule
100 mg PO HS
cyanocobalamin (vitamin B-12) 1,000 mcg Tablet
1,000 mcg PO HS
famotidine 20 mg Tablet
20 mg PO .4X WEEKLY PRN (Reason: heartburn/indigestion)
cholestyramine (with sugar) 4 gram powder in packet
1 ea PO BID
psyllium Packet
1 packet PO HS
ergocalciferol (vitamin D2) 1,250 mcg (50,000 unit) capsule
1,250 mcg PO WE
Discharge Orders:
Discharge Patient (As Directed); Ordered 09/24/24
Ordered By: Roger Tyson
Discharge Date and Time
Discharge Date/Time: 09/24/24 15:43
Print Language: URDU
== END 2024-09-24 15:43 | disposition home or self-care (01) | DRG 390 ==
LOC: 4 WEST ACU 14:42
PROVIDERS: Physician Assistant; Student in an Organized Health Care Education/Training Program; ADMITTING PHYSICIAN Hospitalist; EMERGENCY PHYSICIAN Emergency Medicine; FAMILY PHYSICIAN Family Medicine; OTHER PHYSICIAN Surgery
DX: K56.2 Volvulus (principal); K21.9 Gastro-esophageal reflux disease without esophagitis; J45.909 Unspecified asthma, uncomplicated; Z66 Do not resuscitate; G89.29 Other chronic pain; D33.3 Benign neoplasm of cranial nerves; K56.7 Ileus, unspecified; K80.20 Calculus of gallbladder without cholecystitis without obstruction; N28.1 Cyst of kidney, acquired; N20.0 Calculus of kidney; Z90.49 Acquired absence of other specified parts of digestive tract; Z92.3 Personal history of irradiation
CPT/HCPCS: 70450; 72125; 74177; 80053; 83690; 85025; 85027; 94640; 96360; 99285; Q9967

== ENCOUNTER → 2024-10-06 10:49 | Outpatient (REF) | payer MEDICARE, OTHER, SELFPAY | LOC: WDC 10:49 | PROVIDERS: ATTENDING PHYSICIAN Obstetrics & Gynecology; FAMILY PHYSICIAN Family Medicine | DX: R92.333 Mammographic heterogeneous density, bilateral breasts (principal) | CPT/HCPCS: 76641 ==

== ENCOUNTER 2024-10-09 10:40 | Inpatient (IN) | payer MEDICARE, OTHER, SELFPAY ==
[2024-10-06 13:48] LABS: Hemoglobin 14.2 g/dL (12.0-16.0); Mean Corp Hgb Conc. 34.6 g/dL (33.0-37.0); Mean Corpuscular Hgb 31.4 pg (27.0-31.0); Mean Corpuscular Volume 90.7 fL (81.0-99.0); Mean Platelet Volume 8.3 fL (7.4-10.4); Platelet Count 284 10^3/uL (130-400); Red Blood Cell Count 4.52 10^6/uL (4.20-5.40); Red Cell Dist. Width 12.5 % (11.5-14.5); White Blood Cell Count 7.9 10^3/uL (4.8-10.8)
[2024-10-06 14:02] VITALS: BMI 20.7
[2024-10-06 14:07] LABS: APTT 32.4 Sec (23.4-35.0); INR 1.02; PT 13.7 Sec (11.4-14.6)
[2024-10-06 15:30] LABS: ALT (SGPT) 16 U/L (0-35); AST (SGOT) 23 U/L (14-36); Albumin 4.6 g/dl (3.5-5.0); Alkaline Phosphatase 98 U/L (38-126); Blood Urea Nitrogen 29 mg/dl (7-17); Calcium 9.8 mg/dl (8.4-10.2); Carbon Dioxide 18 mmol/L (22-30); Chloride 104 mmol/L (98-107); Estimated Creatinine Clearance 29 ml/min; Glucose 106 mg/dl (70-99); Potassium 4.7 mmol/L (3.5-5.1); Sodium 137 mmol/L (135-145); Total Bilirubin 2.6 mg/dl (0.2-1.3); eGFR 45.48
[2024-10-06 16:21] LABS: Vitamin B12 913 pg/ml (239-931)
[2024-10-08 11:42] LABS: Vitamin D, 25-OH*** 55.4 ng/mL (30-80)
[2024-10-09] VITALS (14 sets, daily range): BP systolic 112–142; BP diastolic 53–88; BMI 19.8
[2024-10-09 01:55] LABS: Vitamin D 1,25 Dihydroxy 38.9 pg/mL (19.9-79.3)
[2024-10-09] MEDS: ENTEREG 12 MG PO (11:42)
[2024-10-09] MEDS: NORMOSOL-R/PLASMALYTE-A 1000 IV (11:42)
[2024-10-09] MEDS: TYLENOL 1000 MG PO (12:57)
[2024-10-09] MEDS: HEPARIN 5000 UNITS SC (13:15)
--- NOTE | 2024-10-09 16:55 | W.IMMPOSTOP ---
Addendum entered and electronically signed by Josef Armas MD 10/09/24 17:10:
Approximately 240cc of healthy small bowel remaining
Original Note:
Surgical Immed Post Op Note
-
Primary Surgeon: Fernando Armas MD
Assistants: Patrick Pearson, PGY 1 and KARLEE Pichardo
Pre-op Diagnosis: Recurrent small bowel volvulus
Post-op Diagnosis: Same
Procedure Performed: Laparotomy with small bowel resection
Anesthesia Type: GET
Specimen / Cultures: Small bowel (30 cm), suture is proximal
Estimated Blood Loss: 17cc
Complications: None
Operative Findings: No adhesions
Chronically dilated distal small bowel proximal to the ileorectal anastomosis
Stapled functional end-to-end anastomosis
Patient's son updated via telephone
[2024-10-09] MEDS: ZOFRAN 4 MG IV (17:07)
[2024-10-09] MEDS: MORPHINE SULFATE 1 MG IV ×2 (17:18→17:28)
[2024-10-09] MEDS: HURRICAINE SPRAY 1 APPLIC TOPICAL (17:58)
--- NOTE | 2024-10-09 18:39 | PTCARENOTE ---
Patient admitted from the PACU post small bowel resection secondary to recurrent small bowel volvulus.Patient is alert and oriented she says her pain is better but is unable to give me a number.Her midline abdominal dressing is intact with scant
drainage.The patient is in her bed with the call pinzon in reach.
[2024-10-09] MEDS: ADVAIR HFA 115/21 MCG INHALER INH ×2 (19:22→19:26)
[2024-10-09] MEDS: NSS 1000 IV (19:43)
[2024-10-09] MEDS: ANESTHETIC LOZENGE 1 LOZENGE PO (19:48)
[2024-10-09] MEDS: TYLENOL PO (20:04)
[2024-10-09] MEDS: OFIRMEV 100 IV (21:57)
[2024-10-09] MEDS: ZYRTEC PO (22:15)
[2024-10-09] MEDS: SINGULAIR PO (22:15)
[2024-10-09] MEDS: DILAUDID 0.25 MG IV (23:34)
[2024-10-10] MEDS: TYLENOL PO ×3 (00:19→20:59)
[2024-10-10 03:02] VITALS: BP 127/66
[2024-10-10] MEDS: OFIRMEV 100 IV ×2 (04:00→21:56)
[2024-10-10 05:56] VITALS: BMI 19.9
[2024-10-10] MEDS: DILAUDID 0.25 MG IV ×3 (05:57→22:18)
[2024-10-10 07:15] VITALS: BP 95/53
[2024-10-10] MEDS: ENTEREG 12 MG PO ×2 (08:08→20:03)
[2024-10-10] MEDS: TYLENOL 650 MG PO ×3 (08:08→16:22)
[2024-10-10] MEDS: PROTONIX IV 40 MG IV (08:09)
[2024-10-10] MEDS: NSS (PRESERVATIVE FREE) 10 ML IV (08:09)
[2024-10-10] MEDS: NSS 1000 IV (08:10)
[2024-10-10 08:25] LABS: Blood Urea Nitrogen 23 mg/dl (7-17); Calcium 8.6 mg/dl (8.4-10.2); Carbon Dioxide 17 mmol/L (22-30); Chloride 107 mmol/L (98-107); Estimated Creatinine Clearance 38 ml/min; Glucose 71 mg/dl (70-99); Sodium 139 mmol/L (135-145); eGFR > 60.00
[2024-10-10 08:47] LABS: % Basophils 0.2 % (0-2); % Immature Granulocytes 0.8 % (0-0.5); % Lymphocytes 11.7 % (20.5-51.1); % Neutrophils 81.3 % (42.2-75.2); Absolute Immature Granulocytes 0.1 10^3/uL (0-0.05); Absolute Lymphocytes 0.7 10^3/uL (1.2-3.4); Absolute Monocytes 0.4 10^3/uL (0.1-0.6); Hematocrit 34.3 % (37.0-47.0); Hemoglobin 11.5 g/dL (12.0-16.0); Mean Corp Hgb Conc. 33.5 g/dL (33.0-37.0); Mean Corpuscular Hgb 30.4 pg (27.0-31.0); Mean Corpuscular Volume 90.7 fL (81.0-99.0); Mean Platelet Volume 8.6 fL (7.4-10.4); Nucleated Red Blood Cells % 0 %; Platelet Count 217 10^3/uL (130-400); Red Blood Cell Count 3.78 10^6/uL (4.20-5.40); Red Cell Dist. Width 12.5 % (11.5-14.5); White Blood Cell Count 6.2 10^3/uL (4.8-10.8)
--- NOTE | 2024-10-10 09:35 | CM ---
night manager reviewed patient's chart and met with patient and patient lives alone in a 2 story home with 3 steps to enter, patient is independent with adl's and ambulation, no dme, home when stable, no needs.
PCP: Troy Diaz
Pharmacy: [facility] in [place]
Plan; Home when stable, no needs.
[2024-10-10 11:05] VITALS: BP 130/57
[2024-10-10] MEDS: ANESTHETIC LOZENGE 1 LOZENGE PO (11:22)
--- NOTE | 2024-10-10 11:31 | W.PN.CRS1 ---
Today's Communication / Plan
-
NPO/IVF/NGT
Assessment/Plan
-
83 yo female with h/o Crohn's and recurrent small bowel volvulus presenting for scheduled operative management.
POD #1 Laparotomy with small bowel resection
AFVSS
Hemoglobin dropped from preop but now close to baseline, suspect acute anemia secondary to hemodilution
Await bowel recovery
--NPO with NGT to suction until passing flatus
--C/W IVF
--OOB/PT consulted
--Analgesics/antiemetics scheduled and prn
--Void trial in AM
--Lovenox and scds for vte ppx
--Labs in am
Subjective Data
Procedure
10/09/2024 Laparotomy with small bowel resection
Subjective Data
Date of Service: October 10, 2024
Patient seen and examined at bedside with Dr. Armas. Denies n/v. Not yet passing flatus. Minimal discomfort to abdomen. Discomfort from the NGT
Objective Data
-
Vital Signs
Temp Pulse Resp BP Pulse Ox
99.1 F 85 15 95/53 94
10/10/24 07:15 10/10/24 07:15 10/10/24 07:15 10/10/24 07:15 10/10/24 07:15
Intake & Output
10/09/24 10/10/24 10/11/24
06:59 06:59 06:59
Intake Total 1170 / 1170
Output Total 860 / 860
Balance 310 / 310
Intake:
Oral fluids 120 / 120
IV fluids (Total) 960 / 960
Amount instilled into GI Tube ( 90 / 90
Total)
[place] Sump 90 / 90
Output:
Gastrointestinal tube output ( 410 / 410
Total)
[place] Sump 410 / 410
Urine, Panda 375 / 375
Urine, Voided 75 / 75
Lab Results
10/10/24 05:35
10/10/24 05:35
Physical Exam
-
General: No Acute Distress
Abdomen: Soft, Non Distended, Tender (minimal tenderness to incision sites) and Other (ngt with bilious outputs)
Skin: Warm and Dry
Incision: Clear, Dry, Intact
[2024-10-10 15:20] VITALS: BP 117/60
[2024-10-10] MEDS: LOVENOX 30 MG SC (16:43)
[2024-10-10] MEDS: ADVAIR HFA 115/21 MCG INHALER 2 PUFF INH (18:08)
[2024-10-10] MEDS: SINGULAIR PO (21:56)
[2024-10-10] MEDS: ZYRTEC PO (21:56)
[2024-10-10 23:00] VITALS: BP 127/53
[2024-10-11] MEDS: TYLENOL PO ×2 (00:07→04:43)
[2024-10-11] MEDS: NSS 1000 IV (03:04)
[2024-10-11 06:00] VITALS: BMI 20.5
[2024-10-11 07:10] VITALS: BP 122/60
[2024-10-11] MEDS: NSS (PRESERVATIVE FREE) 10 ML IV (07:48)
[2024-10-11] MEDS: TYLENOL 650 MG PO ×5 (07:48→23:31)
[2024-10-11] MEDS: ENTEREG 12 MG PO ×2 (07:48→20:15)
[2024-10-11] MEDS: PROTONIX IV 40 MG IV (07:48)
[2024-10-11 07:49] LABS: Hematocrit 34.7 % (37.0-47.0); Hemoglobin 11.6 g/dL (12.0-16.0); Mean Corp Hgb Conc. 33.4 g/dL (33.0-37.0); Mean Corpuscular Hgb 30.7 pg (27.0-31.0); Mean Corpuscular Volume 91.8 fL (81.0-99.0); Mean Platelet Volume 8.9 fL (7.4-10.4); Platelet Count 220 10^3/uL (130-400); Red Blood Cell Count 3.78 10^6/uL (4.20-5.40); Red Cell Dist. Width 12.8 % (11.5-14.5)
[2024-10-11 08:06] LABS: Blood Urea Nitrogen 24 mg/dl (7-17); Calcium 8.5 mg/dl (8.4-10.2); Carbon Dioxide 21 mmol/L (22-30); Chloride 110 mmol/L (98-107); Estimated Creatinine Clearance 44 ml/min; Glucose 59 mg/dl (70-99); Potassium 3.7 mmol/L (3.5-5.1); Sodium 142 mmol/L (135-145); eGFR > 60.00
--- NOTE | 2024-10-11 11:33 | W.PN.CRS1 ---
Today's Communication / Plan
-
NGT clamp trial
Assessment/Plan
-
83 yo female with h/o Crohn's and recurrent small bowel volvulus presenting for scheduled operative management.
POD #2 Laparotomy with small bowel resection
AFVSS
Labs stable
Passing flatus/some stools. Minimal NGT outputs
--Clamp trial of NGT and remove if low residual
--C/W IVF
--OOB/PT consulted
--Analgesics/antiemetics scheduled and prn
--Void trial today
--Lovenox and scds for vte ppx
Subjective Data
Procedure
10/09/2024 Laparotomy with small bowel resection
Subjective Data
Date of Service: October 11, 2024
Patient seen and examined at bedside with Dr. Armas. Denies n/v. Passing flatus and a little liquid stool. Minimal discomfort to abdomen. Local irritation from NGT.
Objective Data
-
Vital Signs
Temp Pulse Resp BP Pulse Ox
98.2 F 72 16 122/60 96
10/11/24 07:10 10/11/24 07:10 10/11/24 07:10 10/11/24 07:10 10/11/24 07:10
Intake & Output
10/10/24 10/11/24 10/12/24
06:59 06:59 06:59
Intake Total 1170 / 1170 2100 / 2100
Output Total 860 / 860 1250 / 1250
Balance 310 / 310 850 / 850
Intake:
Oral fluids 120 / 120
IV fluids (Total) 960 / 960 1920 / 1920
Amount instilled into GI Tube ( 90 / 90 180 / 180
Total)
[place] Sump 90 / 90 180 / 180
Output:
Gastrointestinal tube output ( 410 / 410 550 / 550
Total)
[place] Sump 410 / 410 550 / 550
Urine, Panda 375 / 375 700 / 700
Urine, Voided 75 / 75
Lab Results
10/11/24 05:37
10/11/24 05:37
Physical Exam
-
General: No Acute Distress
Abdomen: Soft, Non Distended, Tender (minimal tenderness to incision sites) and Other (ngt with blood tinged light outputs)
Skin: Warm and Dry
Incision: Clear, Dry, Intact (Aquacel )
[2024-10-11] MEDS: D5/0.45%NSS with KCL 20 MEQ 1000 IV (11:50)
[2024-10-11] MEDS: NSS IV (11:53)
[2024-10-11 15:34] VITALS: BP 143/66
[2024-10-11] MEDS: LOVENOX 30 MG SC (17:12)
[2024-10-11] MEDS: ADVAIR HFA 115/21 MCG INHALER 2 PUFF INH (19:54)
[2024-10-11] MEDS: SINGULAIR 10 MG PO (21:01)
[2024-10-11] MEDS: ZYRTEC 10 MG PO (21:01)
[2024-10-11 23:10] VITALS: BP 110/60
[2024-10-12] MEDS: D5/0.45%NSS with KCL 20 MEQ 1000 IV (00:40)
[2024-10-12 03:35] VITALS: BP 135/70
[2024-10-12] MEDS: TYLENOL 650 MG PO ×5 (03:37→23:55)
[2024-10-12 06:00] VITALS: BMI 20.6
[2024-10-12 07:55] VITALS: BP 137/67
--- NOTE | 2024-10-12 09:14 | W.PN.CRS1 ---
Today's Communication / Plan
-
fulls
Assessment/Plan
-
83 yo female with h/o Crohn's and recurrent small bowel volvulus presenting for scheduled operative management.
POD #3 Laparotomy with small bowel resection
AFVSS
Labs stable
Passing flatus/some stools.
10/11- NGT removed
--Advance diet to fulls
--D/C IVFs when tolerating po intake
--OOB/PT consulted
--Analgesics/antiemetics scheduled and prn
--Lovenox and scds for vte ppx
--Add po pain meds, IV Dilaudid PRN for breakthrough
Subjective Data
Procedure
10/09/2024 Laparotomy with small bowel resection
Subjective Data
Date of Service: October 12, 2024
Patient states she is improving. She has no complaints.
Objective Data
-
Vital Signs
Temp Pulse Resp BP Pulse Ox
97.9 F 63 18 137/67 96
10/12/24 07:55 10/12/24 07:55 10/12/24 07:55 10/12/24 07:55 10/12/24 07:55
Intake & Output
10/11/24 10/12/24 10/13/24
06:59 06:59 06:59
Intake Total 2100 / 2100 1380 / 1380
Output Total 1250 / 1250 40 / 40
Balance 850 / 850 1340 / 1340
Intake:
Oral fluids 360 / 360
IV fluids (Total) 1920 / 1920 960 / 960
Amount instilled into GI Tube ( 180 / 180 60 / 60
Total)
[place] Sump 180 / 180 60 / 60
Output:
Gastrointestinal tube output ( 550 / 550 40 / 40
Total)
[place] Sump 550 / 550 40 / 40
Urine, Panda 700 / 700
Other:
Number of approximated SMALL 1
amounts of urine
Number of approximated MODERATE 3
amounts of urine
How many times incontinent 1
MODERATE amount urine
Number of unmeasured liquid
stools
Rectum 2
Lab Results
10/11/24 05:37
10/11/24 05:37
Physical Exam
-
General: No Acute Distress and AOx3
Abdomen: Soft, Non Distended and Tender (mild, incision sites)
Skin: Warm and Dry
Incision: Clear, Dry, Intact
[2024-10-12] MEDS: ENTEREG 12 MG PO ×2 (09:32→20:34)
[2024-10-12] MEDS: NSS (PRESERVATIVE FREE) 10 ML IV (09:32)
[2024-10-12] MEDS: PROTONIX IV 40 MG IV (09:32)
[2024-10-12] MEDS: TYLENOL PO (12:00)
--- NOTE | 2024-10-12 12:46 | CM ---
Cm reviewed medical records. Patient remains acutely ill.
PLAN: home no needs.
[2024-10-12] MEDS: D5/0.45%NSS with KCL 20 MEQ IV (13:38)
[2024-10-12 15:35] VITALS: BP 135/70
[2024-10-12 16:10] VITALS: BP 135/70
[2024-10-12] MEDS: LOVENOX 30 MG SC (18:11)
[2024-10-12] MEDS: ADVAIR HFA 115/21 MCG INHALER 2 PUFF INH (19:54)
[2024-10-12] MEDS: ZYRTEC 10 MG PO (22:38)
[2024-10-12] MEDS: SINGULAIR 10 MG PO (22:38)
[2024-10-12 23:23] VITALS: BP 128/73
[2024-10-13] MEDS: TYLENOL 650 MG PO ×5 (03:25→20:29)
[2024-10-13 07:06] VITALS: BP 125/77
[2024-10-13 07:14] LABS: Blood Urea Nitrogen 13 mg/dl (7-17); Calcium 8.7 mg/dl (8.4-10.2); Carbon Dioxide 27 mmol/L (22-30); Chloride 107 mmol/L (98-107); Estimated Creatinine Clearance 58 ml/min; Glucose 92 mg/dl (70-99); Sodium 143 mmol/L (135-145); eGFR > 60.00
[2024-10-13 07:15] LABS: % Basophils 0.7 % (0-2); % Eosinophils 4.6 % (0-6); % Immature Granulocytes 0.7 % (0-0.5); % Lymphocytes 28.1 % (20.5-51.1); % Monocytes 8.9 % (1.7-9.3); Absolute Eosinophils 0.2 10^3/uL (0-0.7); Absolute Lymphocytes 1.3 10^3/uL (1.2-3.4); Absolute Monocytes 0.4 10^3/uL (0.1-0.6); Absolute Neutrophils 2.6 10^3/uL (1.4-6.5); Hematocrit 37.9 % (37.0-47.0); Hemoglobin 12.7 g/dL (12.0-16.0); Mean Corp Hgb Conc. 33.5 g/dL (33.0-37.0); Mean Corpuscular Hgb 30.7 pg (27.0-31.0); Mean Corpuscular Volume 91.5 fL (81.0-99.0); Mean Platelet Volume 9.1 fL (7.4-10.4); Nucleated Red Blood Cells % 0 %; Platelet Count 212 10^3/uL (130-400); Red Blood Cell Count 4.14 10^6/uL (4.20-5.40); Red Cell Dist. Width 12.8 % (11.5-14.5); White Blood Cell Count 4.6 10^3/uL (4.8-10.8)
[2024-10-13] MEDS: ENTEREG 12 MG PO ×2 (08:50→20:30)
[2024-10-13] MEDS: PROTONIX IV IV (08:52)
[2024-10-13] MEDS: NSS (PRESERVATIVE FREE) IV (08:52)
--- NOTE | 2024-10-13 10:13 | W.PN.CRS1 ---
Today's Communication / Plan
-
low residue diet
Assessment/Plan
-
83 yo female with h/o Crohn's and recurrent small bowel volvulus presenting for scheduled operative management.
POD #4 Laparotomy with small bowel resection
AFVSS
WBC 4.6
Passing flatus/some stools.
10/11- NGT removed
--Advance diet to low residue
--OOB/PT consulted
--Analgesics/antiemetics scheduled and prn
--Lovenox and scds for vte ppx
--Add po pain meds, IV Dilaudid PRN for breakthrough
--Anticipate discharge tomorrow if tolerating a diet. Plan is for home with no services.
Subjective Data
Procedure
10/09/2024 Laparotomy with small bowel resection
Subjective Data
Date of Service: October 13, 2024
Patient states she is having liquid bowel movements. She has no pain. She is tolerating fulls and is hungry for more. Denies nausea or vomiting.
Objective Data
-
Vital Signs
Temp Pulse Resp BP Pulse Ox
98.0 F 60 16 125/77 96
10/13/24 07:06 10/13/24 07:06 10/13/24 07:06 10/13/24 07:06 10/13/24 07:06
Intake & Output
10/12/24 10/13/24 10/14/24
06:59 06:59 06:59
Intake Total 1380 / 1380 980 / 980 960 / 960
Output Total 40 / 40
Balance 1340 / 1340 980 / 980 960 / 960
Intake:
Oral fluids 360 / 360 980 / 980 960 / 960
IV fluids (Total) 960 / 960
Amount instilled into GI Tube ( 60 / 60
Total)
[place] Sump 60 / 60
Output:
Gastrointestinal tube output ( 40 /
Total)
[place] Sump 40 / 40
Other:
Number of approximated SMALL 1
amounts of urine
Number of approximated MODERATE 3 2 1
amounts of urine
How many times incontinent 1
MODERATE amount urine
Number of unmeasured liquid
stools
Rectum 2 5
Lab Results
10/13/24 05:25
10/13/24 05:25
Physical Exam
-
General: No Acute Distress
Abdomen: Soft, Non Distended and Non Tender
Skin: Warm
--- NOTE | 2024-10-13 10:32 | CM ---
CM reviewed medical records. Plan for discharge tomorrow 10/14 if patient continues to tolerate po. No needs noted on discharge. CM will continue to follow.
PLAN: Home with no needs.
[2024-10-13] MEDS: PROTONIX 40 MG PO (11:14)
--- NOTE | 2024-10-13 11:49 | PN.CDI ---
CDI
- -
CDI:
Physician Documentation Request
Admit Date: 10/09/24 10:40
Dear Colorectal surgery,
Patient admitted for small bowel volvulus.
Laboratory Tests
10/06/24 10/11/24
12:17 05:37
Creatinine 1.2 H 0.8
Clarify which of the following accurately represents the patient's renal status:
JOSIE, POA
Elevated creatinine
Other
Criteria for JOSIE*
1 Increase in serum creatinine by > or = to 0.3 mg/dL (> or = to 26.5 micromol/L) within 48 hours, OR
2 Increase in serum creatinine to > or = to 1.5 times baseline, which is known or presumed to have occurred within 7 days, OR
3 Urine volume < 0.5 nL/kg/hour for six hours
Use of terms such as suspected, likely, concern for, or probable (associated with a specific diagnosis that is being evaluated, monitored, or treated as if it exists) are acceptable and can be coded in the inpatient setting, when documented at the
time of discharge.
Thank you,
Maki De La Torre RN, BSN
CDI Specialist
Available via Devine text
Please use your independent medical judgment in providing your response.
*Source: Kidney Disease: Improving Global Outcomes (KDIGO) 2012
[2024-10-13 15:05] VITALS: BP 131/71
[2024-10-13] MEDS: LOVENOX 30 MG SC (17:27)
[2024-10-13] MEDS: ADVAIR HFA 115/21 MCG INHALER 2 PUFF INH (20:11)
[2024-10-13] MEDS: SINGULAIR 10 MG PO (20:29)
[2024-10-13] MEDS: ZYRTEC 10 MG PO (20:29)
[2024-10-13 23:10] VITALS: BP 124/73
[2024-10-14] MEDS: TYLENOL 650 MG PO ×4 (00:09→12:04)
[2024-10-14 08:00] VITALS: BP 137/67
--- NOTE | 2024-10-14 08:55 | W.PN.CRS1 ---
Today's Communication / Plan
-
discharge
Assessment/Plan
-
83 yo female with h/o Crohn's and recurrent small bowel volvulus presenting for scheduled operative management.
POD #5 Laparotomy with small bowel resection
AFVSS
10/11- NGT removed
--Continue low residue
--OOB/PT consulted
--Analgesics/antiemetics scheduled and prn
--Lovenox and scds for vte ppx
--Add po pain meds, IV Dilaudid PRN for breakthrough
--Okay for discharge today. All discharge instructions discussed with patient including medications, activity levels, and follow up. All questions addressed. Plan is for home with no services.
Subjective Data
Procedure
10/09/2024 Laparotomy with small bowel resection
Subjective Data
Date of Service: October 14, 2024
Patient states she feels well today. She has no complaints. Her pain is controlled. She has bowel function. Tolerating a diet. She is ready to go home.
Objective Data
-
Vital Signs
Temp Pulse Resp BP Pulse Ox
98.5 F 71 16 137/67 95
10/14/24 08:00 10/14/24 08:00 10/14/24 08:00 10/14/24 08:00 10/14/24 08:00
Intake & Output
10/13/24 10/14/24 10/15/24
06:59 06:59 06:59
Intake Total 980 / 980 1859
Balance 980 / 980 1859
Intake:
Oral fluids 980 / 980 1859
Other:
Number of approximated MODERATE 2 4
amounts of urine
Number of unmeasured liquid
stools
Rectum 5
Lab Results
10/13/24 05:25
10/13/24 05:25
Physical Exam
-
General: No Acute Distress and AOx3
Abdomen: Soft, Non Distended and Non Tender
Skin: Warm and Dry
Incision: Clear, Dry, Intact
[2024-10-14] MEDS: PROTONIX 40 MG PO (09:15)
[2024-10-14] MEDS: ENTEREG 12 MG PO (09:15)
[2024-10-14] MEDS: NSS (PRESERVATIVE FREE) IV (09:16)
--- NOTE | 2024-10-14 09:22 | CM ---
Cm reviewed medical records. Plan for discharge today with no home needs.
PLAN: home with no needs.
--- NOTE | 2024-10-14 11:58 | W.DCSUMMARY ---
Discharge Summary
Discharge Data
Date of Admission: 10/09/24
Date of Discharge: 10/14/24
-
Pending Results: No
Hospital Course
83-year-old female presented to [facility] for a laparotomy with small bowel resection due to a recurrent small bowel volvulus and a history of Crohn's disease. The patient tolerated the procedure well and was brought back to the medical
surgical floor. The following day she was out of bed. An NG tube was in place which remained until she regained bowel function. On postop day 2 she underwent a clamping trial and NG tube was removed. Lovenox was started for DVT prophylaxis. Her
diet was slowly advanced on a clear liquid diet to a low residue diet throughout her stay. By postop day 5 she was tolerating a diet. Her pain was well-controlled. She was having bowel function. She was cleared for home by case management. All
discharge instructions were discussed with the patient including medications, activity levels, and follow-up. All questions were addressed.
Discharge Plan
-
Patient Disposition: Home (Routine Discharge)
Discharge Diagnosis/Procedures: Laparotomy with small bowel resection
Diet: Low Residue
Additional Diets: 1 week low residue then gradually introduce fiber back into your diet
Activity: No strenuous activity
Additional Activity: No lifting more than 10lbs (gallon of milk)
Driving Restrictions: As prior to admission
Bathing Restrictions: OK to Shower
Wound Care: Okay to leave keren open to air. Keren will be removed at your post op appointment with Dr. Armas.
Activity Restrictions/Additional Instructions:
Okay to drive if you have no abdominal pain AND you are not using narcotics.
Instructions: Low-fiber diet
Referrals:
Josef Armas MD [Active] - in two weeks
Troy Diaz MD [Family Provider] -
Additional Discharge Medication Instructions: Tylenol as needed for pain. Maximum dose of Tylenol is 4,000mg in 24 hours.
Discuss restarting your fiber supplement at your post op appointment with Dr. Armas.
Prescriptions:
Continued
cetirizine 10 MG tablet
10 mg PO HS
omeprazole 20 MG capsule,delayed release(DR/EC)
20 mg PO .3X WEEKLY
fluticasone propionate 1 SPRAY spray,suspension
1 spray intranasal HS
calcium citrate-vitamin D3 [Citracal + D Maximum] 1 EACH tablet
2 ea PO QPM
biotin 5,000 MCG tablet,disintegrating
5,000 mcg PO HS
fluticasone propion-salmeterol [Wixela Inhub] 250-50 mcg/dose Blister With Device
1 inh INHALATION R HS
estradiol 0.025 mg/24 hr Patch Weekly
1 patch TRANSDERMAL TU
Rx Instructions:
change on saturday, on right flank 06/21/2024
montelukast 10 mg Tablet
10 mg PO HS
azelastine 137 mcg (0.1 %) Aerosol,[place]
1 spray INTRANASAL DAILY
progesterone micronized 100 mg Capsule
100 mg PO HS
cyanocobalamin (vitamin B-12) 1,000 mcg Tablet
1,000 mcg PO HS
famotidine 20 mg Tablet
20 mg PO .4X WEEKLY PRN (Reason: heartburn/indigestion)
cholestyramine (with sugar) 4 gram powder in packet
1 ea PO BID
cholecalciferol (vitamin D3) [Vitamin D3] 125 mcg (5,000 unit) Tablet
125 mcg PO DAILY
acetaminophen 500 mg Tablet
1,000 mg PO Q6H PRN (Reason: pain)
Discontinued
psyllium Packet
1 packet PO HS
metronidazole 500 mg Tablet
500 mg PO DIRECTED
Patient Comments:
1 tablet 2pm, 3pm, 10pm day before surgery
neomycin 500 mg Tablet
1,000 mg PO DIRECTED
Patient Comments:
2 tablets at 2pm, 3pm, 10pm day before surgery
Discharge Orders:
Discharge Patient (As Directed); Ordered 10/14/24
Ordered By: Cecilia Elliott
Discharge Date and Time
Print Language: KOSOVAN
[2024-10-14 15:52] VITALS: BP 139/74
== END 2024-10-14 16:01 | disposition home or self-care (01) | DRG 330 ==
LOC: 2 SOUTH 10:40
PROVIDERS: Physician Assistant; Registered Nurse; ADMITTING PHYSICIAN Surgery; FAMILY PHYSICIAN Family Medicine
PROC: 0DT80ZZ Resection of Small Intestine, Open Approach (ICD-10-PCS; 2024-10-09)
DX: K56.2 Volvulus (principal); K50.90 Crohn's disease, unspecified, without complications
CPT/HCPCS: 88307; 36415; 80048; 80053; 82306; 82607; 82652; 85025; 85027; 85610; 85730; 86850; 86900; 86901; 93005; 94640; 97116; 97162; C1776; J1335

== ENCOUNTER → 2025-01-05 13:44 | Outpatient (REF) | payer MEDICARE, OTHER, SELFPAY | LOC: REG 13:44 | PROVIDERS: ATTENDING PHYSICIAN Internal Medicine Gastroenterology; FAMILY PHYSICIAN Family Medicine; OTHER PHYSICIAN Internal Medicine Hematology & Oncology | DX: K50.813 Crohn's disease of both small and large intestine with fistula (principal) | CPT/HCPCS: 36415 ==

== ENCOUNTER → 2025-01-07 11:36 | Outpatient (REF) | payer MEDICARE, OTHER, SELFPAY ==
[2025-01-07 13:12] LABS: Hematocrit 38.1 % (37.0-47.0); Hemoglobin 12.5 g/dL (12.0-16.0); Mean Corp Hgb Conc. 32.8 g/dL (33.0-37.0); Mean Corpuscular Volume 93.4 fL (81.0-99.0); Nucleated Red Blood Cells % 0 %; Platelet Count 177 10^3/uL (130-400); Red Cell Dist. Width 13.5 % (11.5-14.5)
[2025-01-07 13:43] LABS: ALT (SGPT) 20 U/L (0-35); AST (SGOT) 25 U/L (14-36); Albumin 4.3 g/dl (3.5-5.0); Alkaline Phosphatase 61 U/L (38-126); Blood Urea Nitrogen 19 mg/dl (7-17); Calcium 9.2 mg/dl (8.4-10.2); Carbon Dioxide 28 mmol/L (22-30); Chloride 108 mmol/L (98-107); Glucose 108 mg/dl (70-99); Iron 103 ug/dl (37-170); Potassium 4.3 mmol/L (3.5-5.1); Sodium 140 mmol/L (135-145); Total Protein 7.2 g/dl (6.3-8.2); eGFR > 60.00
[2025-01-07 13:52] LABS: C-Reactive Protein < 5.00 mg/L (0.0-10.00)
[2025-01-07 13:54] LABS: Total Iron Binding Capacity 386 ug/dl (265-497)
[2025-01-07 14:28] LABS: Ferritin 12.8 ng/ml (11.1-264.0)
[2025-01-07 14:59] LABS: Folate 14.4 ng/ml (2.76-20); Vitamin B12 812 pg/ml (239-931)
[2025-01-07 18:42] LABS: Hepatitis B Surface Antigen Negative (Negative)
[2025-01-12 14:11] LABS: Calprotectin, Fecal 186 ug/g (<=49)
== END ==
LOC: REG 11:36
PROVIDERS: ATTENDING PHYSICIAN Internal Medicine Gastroenterology; FAMILY PHYSICIAN Family Medicine; OTHER PHYSICIAN Internal Medicine Hematology & Oncology
DX: K50.813 Crohn's disease of both small and large intestine with fistula (principal)
CPT/HCPCS: 36415; 80053; 82607; 82728; 82746; 83540; 83550; 83993; 85025; 86140; 86480; 86704; 86706; 87045; 87046; 87077; 87328; 87329; 87340; 87427; 89055

== ENCOUNTER → 2025-04-06 10:01 | Outpatient (REF) | payer MEDICARE, OTHER, SELFPAY | LOC: PAVMRI 10:01 | PROVIDERS: ATTENDING PHYSICIAN Internal Medicine Gastroenterology; FAMILY PHYSICIAN Family Medicine | DX: K50.813 Crohn's disease of both small and large intestine with fistula (principal) | CPT/HCPCS: 72197; 74183; A9575 ==

== ENCOUNTER → 2025-04-28 11:35 | Outpatient (REF) | payer MEDICARE, OTHER, SELFPAY ==
[2025-04-30 09:13] LABS: Calprotectin, Fecal 22 ug/g (<=49)
== END ==
LOC: REG 11:35
PROVIDERS: ATTENDING PHYSICIAN Internal Medicine Gastroenterology; FAMILY PHYSICIAN Family Medicine
DX: K50.90 Crohn's disease, unspecified, without complications (principal)
CPT/HCPCS: 83993

== ENCOUNTER 2025-05-25 09:42 | Inpatient (IN) | payer MEDICARE, OTHER, SELFPAY ==
[2025-05-25] VITALS (21 sets, daily range): BP systolic 112–150; BP diastolic 56–103; BMI 21.0
[2025-05-25] MEDS: ZOFRAN 4 MG IV ×2 (06:19→12:30)
[2025-05-25] MEDS: DILAUDID 0.5 MG IV (06:20)
--- NOTE | 2025-05-25 06:20 | ED.GENMED ---
History of Present Illness
General
Chief Complaint: Flank Pain
Source: patient, records and previous radiology exam
Exam Limitations: none
Time Seen by Provider: 05/25/25 06:04
Nursing documentation reviewed up to this point in time: agreed with
History of Present Illness
History of Present Illness:
84 female history of kidney stones Crohn's small bowel resection presents with left flank pain acute onset consistent with her kidney stones around 12 midnight nausea without vomiting no fever send 5 or 6 stones previously has had 1 stent
Past History
Past History
ED Past Medical History: Asthma and Other (Vertigo, Crohns, Renal calculus, Anemia, Bowel obstructions. )
ED Past Surgical History: Appendectomy, Bowel resection (Colectomy X 5 rectal surgery, ) and Urological
Social History
Tobacco: Non-smoker
Alcohol: None
Drug: None
Personal:
Living: with family
Employment: Retired
Review of Systems
Review of Systems
All Other Systems: Not applicable
Constitutional: Denies fever or fatigue
EENT: Reports no symptoms
Respiratory: Reports no symptoms
Cardiac: Reports no symptoms
ABD/GI: Reports abdominal pain and nausea
Phy Exam
Physical Exam
Physical Exam:
Physical Exam
General: 84 female looks uncomfortable but not
Neck: no jaundice
Heart: s1/s2 regular rate and rhythm, no murmur. equal radial pulses.
Lungs: no acute respiratory distress. clear bilaterally
Abdomen: Soft tender in the left lower abdomen and left flank
Neuro: alert and oriented. no focal neurological deficits
Skin: no rash
Psychiatric: well kept. interactive and cooperative
Extremities: no edema.
Course
Orders/Labs/Results
Orders:
Orders
05/25/25 06:04
HYDROmorphone [Dilaudid] 0.5 mg IV NOW STA
Ondansetron Injectable [Zofran] 4 mg IV NOW STA
05/25/25 06:14
Complete Blood Count/With Diff Urgent
Comprehensive Metabolic Panel Urgent
Lipase Urgent
05/25/25 06:19
CT Abd/pel Without Iv Or Oral Urgent
Comment:
Reason For Exam: left flakn pain
Urinalysis Reflex To Culture Urgent
0.9% Sodium Chloride 1000 ml [Nss] 1,000 ml IV BOLUS
05/25/25 06:59
HYDROmorphone [Dilaudid] 1 mg IV NOW STA
Abnormal Lab Results
05/25/25
06:14
WBC 11.5 H 10^3/uL
(4.8-10.8)
MCH 31.1 H pg
(27.0-31.0)
Abs Immat Gran (auto) 0.1 H 10^3/uL
(0-0.05)
Absolute Neuts (auto) 10.1 H 10^3/uL
(1.4-6.5)
Absolute Lymphs (auto) 0.7 L 10^3/uL
(1.2-3.4)
Neutrophils % 88.5 H %
(42.2-75.2)
Lymphocytes % 6.3 L %
(20.5-51.1)
BUN 19 H mg/dl
(7-17)
Glucose 132 H mg/dl
(70-99)
Total Bilirubin 3.0 H mg/dl
(0.2-1.3)
Lipase 690 H U/L
(23-300)
05/25/25 06:14
05/25/25 06:14
Vital Signs
Initial and Last Documented VS:
Initial Vital Signs
Temp Pulse Resp BP Pulse Ox
98.6 F 64 28 145/67 98
05/25/25 05:42 05/25/25 05:42 05/25/25 05:42 05/25/25 05:42 05/25/25 05:42
Last Documented Vital Signs
Temp Pulse Resp BP Pulse Ox
98.6 F 68 18 139/59 94
05/25/25 05:42 05/25/25 08:15 05/25/25 08:15 05/25/25 08:12 05/25/25 06:45
MDM/Problems Addressed
Differential Diagnosis Includes:
Renal colic UTI obstruction Crohn's
MDM/Problems Addressed:
Left flank pain
Chronic conditions affecting care:
Crohn's renal colic bowel resection
Acute Exacerbation and/or Progression of Chronic Illness:
Crohn's renal colic bowel resection
*Radiology
Radiology exam reviewed: radiology read reviewed
*Pulse Oximetry
SaO2: 98
Oxygen Mode of Delivery: Room air
Patient hypoxic: no
*Critical Care Note
Total Time (30-74mins, 75-104mins- exclusive of procedures): Not Applicable
Update Note
Update Note:
8:30 AM labs noted urine pending CT noted patient looks improved although she is a bit confused received several doses of Dilaudid she lives alone she is elderly multiple comorbid conditions at this point I believe will be prudent to admit her to
the hospital will ask urology to consult hospitalist to admit
ED Attending Note
-
Portions of this chart may have been created with voice recognition software.� Occasional wrong word or��sound alike� substitutions may have occurred due to the inherent limitations of voice recognition software.
Discharge Plan
Departure
Patient Disposition: Admit
Date of Disposition: 05/25/25
Time of Disposition: 08:45
Admit to: Med/Surg
Presentation/result/management discussed w/ accepting MD/DO: Hospitalist
Patient with high blood pressure during this ER visit?: No
Condition: Fair
Discharge Problem:
Calculus, ureteral
Prescriptions:
No Action
cetirizine 10 MG tablet
10 mg PO HS
omeprazole 20 MG capsule,delayed release(DR/EC)
20 mg PO .3X WEEKLY
fluticasone propionate 1 SPRAY spray,suspension
1 spray intranasal HS
calcium citrate-vitamin D3 [Citracal + D Maximum] 1 EACH tablet
2 ea PO QPM
biotin 5,000 MCG tablet,disintegrating
5,000 mcg PO HS
fluticasone propion-salmeterol [Wixela Inhub] 250-50 mcg/dose Blister With Device
1 inh INHALATION R HS
estradiol 0.025 mg/24 hr Patch Weekly
1 patch TRANSDERMAL TU
Rx Instructions:
change on saturday, on right flank 06/21/2024
montelukast 10 mg Tablet
10 mg PO HS
azelastine 137 mcg (0.1 %) Aerosol,[place]
1 spray INTRANASAL DAILY
progesterone micronized 100 mg Capsule
100 mg PO HS
cyanocobalamin (vitamin B-12) 1,000 mcg Tablet
1,000 mcg PO HS
famotidine 20 mg Tablet
20 mg PO .4X WEEKLY PRN (Reason: heartburn/indigestion)
cholestyramine (with sugar) 4 gram powder in packet
1 ea PO BID
cholecalciferol (vitamin D3) [Vitamin D3] 125 mcg (5,000 unit) Tablet
125 mcg PO DAILY
acetaminophen 500 mg Tablet
1,000 mg PO Q6H PRN (Reason: pain)
Referrals:
Troy Diaz MD [Family Provider, Family Practice]
Interventions
Interventions:
*Risk Screen - Suicide Last Done: 05/25/25 05:42
*General Assessment Last Done: 05/25/25 06:12
*Neglect/Abuse Screening Last Done: 05/25/25 06:12
*ED COVID-19 Vaccine History Last Done: 05/25/25 06:12
*ED Influenza Vaccine History Last Done: 05/25/25 06:12
[facility] Fall Risk Assessment Tool Last Done: 05/25/25 06:14
UQ-Njlmsf-Uzxoolhlmd Assessment Last Done: 05/25/25 07:00
ED-Female Genitourinary Assessment Last Done: 05/25/25 06:31
Discharge Date and Time
Print Language: MARSHALLESE
[2025-05-25 06:23] LABS: Hematocrit 39.7 % (37.0-47.0); Hemoglobin 13.3 g/dL (12.0-16.0); Mean Corp Hgb Conc. 33.5 g/dL (33.0-37.0); Mean Corpuscular Volume 92.8 fL (81.0-99.0); Nucleated Red Blood Cells % 0 %; Platelet Count 164 10^3/uL (130-400); Red Cell Dist. Width 13.5 % (11.5-14.5)
[2025-05-25 06:42] LABS: ALT (SGPT) 23 U/L (0-35); AST (SGOT) 31 U/L (14-36); Albumin 4.5 g/dl (3.5-5.0); Alkaline Phosphatase 75 U/L (38-126); Blood Urea Nitrogen 19 mg/dl (7-17); Calcium 9.4 mg/dl (8.4-10.2); Carbon Dioxide 27 mmol/L (22-30); Chloride 104 mmol/L (98-107); Estimated Creatinine Clearance 34 ml/min; Glucose 132 mg/dl (70-99); Lipase 690 U/L (23-300); Potassium 4.5 mmol/L (3.5-5.1); Sodium 137 mmol/L (135-145); Total Protein 7.5 g/dl (6.3-8.2); eGFR 56.25
[2025-05-25] MEDS: NSS 1000 IV ×2 (06:44→21:09)
[2025-05-25] MEDS: DILAUDID 1 MG IV ×2 (07:09→10:08)
--- NOTE | 2025-05-25 09:29 | HPS.HSE ---
Addendum entered and electronically signed by Wilfrido Dillard MD 05/25/25 13:01:
I personally performed a history and physical exam of the patient and discussed management with the resident. I reviewed the resident's note and agree with the documented findings and plan of care HPI/CC.
84-year-old female past medical history of renal stones, Crohn's, anemia who was presented with acute onset of left flank pain. Patient with history of renal stones. Stated persistent left-sided flank pain and nausea. Stated pain was constant,
sharp and severe in intensity.
General: Comfortable , Conversant
HEENT: NormoCephalic and Anicteric
Respiratory: Clear
Cardiac: S1/S2 and Regular Rhythm
GI: Soft, Non Distended, Normal Bowel Sounds and Tender
Genito-urinary: No Bloody Urine
Musculoskeletal: No Edema
Skin: Warm and Dry
Neuro: AO x 3
Hematologic/Lymphatic: No Lymphadenopathy
Psych: Calm
A/P
Left flank pain secondary to left-sided renal stone
Left hydronephrosis secondary to above
History of renal stones
Gallstones
Crohn's and recurrent small bowel volvulus
Asthma
History of acoustic neuroma
Plan
Per urology keep n.p.o. with plan for tentative OR later today
IV fluids for now. IV antibiotics preop
Pain control
postop orders per urology
Continue home meds postprocedure
DVT PPX-scds for 24h. If hospitalization prolonged will start chemical prophylaxis
d/w with urology.
I spent a total of 80 minutes with the patient or on the floor. More than 50% of this time involved counseling and coordination of care.
Original Note:
Family Physician
-
Family Physician: Troy Diaz
Chief Complaint
-
Left flank pain
History of Present Illness
84-year-old female with history of Crohn's disease (colectomyx5), chronic renal stones, GERD, asthma, presents with left flank pain and nausea. Patient was awake and was getting ready to go to bed at 1 AM when she experienced sharp, unrelenting
left flank pain and nausea. She described pain as constant, sharp, severe intensity with pain scale 10/10. She denies vomiting, fever, chills. Patient has a longstanding history of calcium oxalate nephrolithiasis . She is s/p ureteroscopic stone
extraction April 2010. She passed a stone with some associated left renal colic in June 2024.
Medical History
Past Medical History
Past Medical History: Reports Other (Asthma and Other (Vertigo, Crohns, Renal calculus, Anemia, Bowel obstructions. ))
Past Surgical History: Reports Other (Appendectomy, Bowel resection (Colectomy X 5 rectal surgery, ) and Urological)
Social History
Tobacco: Non-smoker
Alcohol: None
Drug: None
Personal:
Living: With Family
Employment: Retired
Family History
Family History: Not pertinent
Allergies / Home Medications
Allergies reflects when Allergies were last updated in [facility].
Home Medications with original date entered in [facility]
Allergy/Medication List:
Allergies
Allergy/AdvReac Type Severity Reaction Status Date / Time
codeine Allergy Unknown Verified 05/25/25 05:41
seasonal Allergy sneezing Uncoded 05/25/25 05:41
silk sutures Allergy abcess Uncoded 05/25/25 05:41
some dissolvable sutures Allergy Unknown Uncoded 05/25/25 05:41
Home Medications
calcium 315 mg (as citrate)-vitamin D3 6.25 mcg (250 unit) tablet (Citracal + Vitamin D Maximum) 1 tab PO HS 11/26/17
cetirizine 10 mg tablet 10 mg PO HS Allergies 11/26/17
fluticasone propionate 50 mcg/actuation nasal spray,suspension 1 spray intranasal HS Allergies 11/26/17
omeprazole 20 mg capsule,delayed release 20 mg PO MOWEFR GERD 11/26/17
azelastine 137 mcg (0.1 %) nasal spray 1 spray intranasal DAILY Allergies 03/01/23
estradiol 0.025 mg/24 hr weekly transdermal patch 1 patch transdermal TU Hormone replacement 03/01/23
fluticasone 250 mcg-salmeterol 50 mcg/dose blistr powdr for inhalation (Wixela Inhub) 1 inh inhalation R HS Allergies 03/01/23
montelukast 10 mg tablet 10 mg PO DAILY Allergies 03/01/23
progesterone micronized 100 mg capsule 100 mg PO HS Hormone replacement 03/01/23
cyanocobalamin (vitamin B-12) 1,000 mcg tablet 1,000 mcg PO HS Supplement 12/12/23
famotidine 20 mg tablet 20 mg PO SUTUTHSA heartburn/indigestion 12/12/23
cholecalciferol (vitamin D3) 125 mcg (5,000 unit) tablet (Vitamin D3) 125 mcg PO DAILY 10/02/24
biotin 2,500 mcg capsule 5,000 mcg PO QPM 05/25/25
cholestyramine (with sugar) 4 gram powder for susp in a packet 2 g PO BID 05/25/25
psyllium 1 packet PO DAILY@1200 05/25/25
Review of Systems
-
History Source: Patient
A 12 point ROS was completed and negative except as noted: Yes
Abdomen/GI: Reports Abdominal Pain and Nausea
Physical Exam
Vital Signs
Vital Signs
Temp Pulse Resp BP Pulse Ox
98.6 F 77 13 143/73 94
05/25/25 05:42 05/25/25 09:15 05/25/25 09:15 05/25/25 09:00 05/25/25 06:45
Physical Exam
General: Comfortable (post IV dilauded x2 in ED ), Conversant and Other
HEENT: NormoCephalic and Anicteric
Respiratory: Clear
Cardiac: S1/S2 and Regular Rhythm
GI: Soft, Non Distended, Normal Bowel Sounds and Tender (mildly tender left UQ)
Genito-urinary: No Bloody Urine
Musculoskeletal: No Edema
Skin: Warm and Dry
Neuro: AO x 3
Hematologic/Lymphatic: No Lymphadenopathy
Psych: Calm
Laboratory Results
-
05/25/25 06:14
05/25/25 06:14
Laboratory Results
Total Bilirubin 3.0 mg/dl (0.2-1.3) H 05/25/25 06:14
AST 31 U/L (14-36) 05/25/25 06:14
ALT 23 U/L (0-35) 05/25/25 06:14
Alkaline Phosphatase 75 U/L (38-126) 05/25/25 06:14
Lipase 690 U/L (23-300) H 05/25/25 06:14
Data Reviewed
-
CT Scan: Report Reviewed by me and Discussed with Physician
Lab Data: Labs Reviewed by me and Discussed with Physician
Impression/Plan
-
IMPRESSION:
Left flank pain
Moderate left hydronephrosis secondary to 5 mm calculus in the mid left ureter.
Nausea
History of Crohn's disease
History of volvulus
History of asthma
History of osteoporosis
History of GERD
History of allergic rhinitis/sinus issues
PLAN:
#Left flank pain
#Moderate left hydronephrosis secondary to 5 mm calculus in the mid left ureter
NPO, IV fluids, IV Rocephin, IV Zofran
History of recurrent renal stones.
s/p ureteroscopic stone extraction April 2010
Urology consult
Potential passing of the stone may take 1 week due to its location per urology
Plan for stent maybe today due to risk of potential infection.
Pain control, antiemetics for nausea
Hold all oral medication
Nausea
IV Zofran as needed
Monitor
History of Crohn's disease/ History of volvulus
S/p colectomy x 5
Hold cholestyramine
History of asthma
Continue Wixela
Hold montelukast
History of osteoporosis
Hold vitamin D and calcium supplements
History of GERD
Hold PPI/H2 keon
History of allergic rhinitis/sinus issues
Hold cetirizine
Continue azelastine, Flonase
Full code
NPO
SCD
--- NOTE | 2025-05-25 09:55 | EDCM ---
Reviewed chart and met with pt bedside in ED. Pt lives alone in [address], [address] from [facility], has first floor set up.
Independent in ADLs, personal care and ambulation at baseline. No assistive device, no DME. Still drives.
Pt will be selling her home and moving to [facility] apartment in July.
Hx VN in past, unsure or agency, hx SNF the [place] [facility] after colon surgery.
PCP: Troy Diaz
Pharmacy: [facility] in [place]
Anticipate discharge home, no needs. CM will continue to follow for any discharge planning needs.
[2025-05-25] MEDS: ROCEPHIN 1000 MG IV (10:02)
[2025-05-25 10:19] LABS: Urine Character Clear (Clear)
[2025-05-25 10:27] LABS: Urine White Cell 16-20 /HPF (0-5)
--- NOTE | 2025-05-25 11:48 | W.PN.URO.CBU ---
Today's Communication / Plan
-
to op room npo antibiotics per hospitalist
Assessment / Plan
-
pt in significant pain requets relief of obsy=truction will attempt at least a stent and if stable then attempt laser basket etc
Diagnosis
-
Date of Service: May 25, 2025
-
Patient Diagnosis:intractable pain due to partially obstructing 5mm mid left uretral stone
Post Op Day:
Subjective
-
pain no fever
Objective
-
Vital Signs
Temp Pulse Resp BP Pulse Ox
98.6 F 77 16 119/67 98
05/25/25 05:42 05/25/25 09:20 05/25/25 09:20 05/25/25 11:00 05/25/25 10:04
Laboratory Results
05/25/25 06:14
05/25/25 06:14
Review of Systems
-
Abdomen/GI: Nausea
: Flank Pain
Physical Exam
-
General - well developed, well nourished,non toxic mild distress
Chest - clear bilaterally
Abdomen - soft, non-tender, positive bowel sounds, no CVAT, no incisional pain or distention
Genitalia - normal
Rectal - normal
Skin - warm & dry with no rash
Neuro - AOx3, no motor deficits
Extremities - no clubbing, no cyanosis, no edema
Incision - clean, dry
Dressing - clean, dry, intact
Counseling
-
to op room
Care Review
Data Reviewed
Discussed with: Hospitalist and Nursing
CT Scan: Image Pers Reviewed
--- NOTE | 2025-05-25 16:18 | W.SUR.POST ---
Surgical Immediate Post Op
Note
Pre Op Diagnosis left ureteral stone with obstruction:
Post Op Diagnosis: ureteral left stone with obstruction
Procedure Performed: left ureteroscopy laser stone basket fragments left jj stent
Primary Surgeon:ailin
Secondary Surgeons:
Anesthesia: general dr blanchard
2cc ebl
Fluids: nss
Drains/Shunts6 fr 24 cc jj stent left
Specimens/Culturesstone:
Doppler/Duplex/Angio (Y/N):
Complications: 0
Operative Findings: chronic obstruction left kidney ad lg stone
[2025-05-25] MEDS: ADVAIR HFA 115/21 MCG INHALER 2 PUFF INH (19:24)
--- NOTE | 2025-05-25 19:26 | PTCARENOTE ---
Pt arrived to [facility] in a bed. Right ankle wound changed with adaptic, kerlix and paper tape. Wound consult placed. B/l lower extremity with scattered bruises/scabs. Knee high scds on pt. Sacrum blanchable red. 96% on RA. IVF infusing. Admission
questions answered. Bed locked and in lowest position. Care ongoing.
[2025-05-25] MEDS: OSCAL 500 + D 500 MG PO (21:07)
[2025-05-25] MEDS: QUESTRAN PO (21:07)
[2025-05-25] MEDS: TYLENOL 650 MG PO (21:07)
[2025-05-25] MEDS: VITAMIN B-12 1000 MCG PO (21:08)
[2025-05-25] MEDS: ZYRTEC 5 MG PO (21:08)
[2025-05-25] MEDS: QUESTRAN 2 GRAM PO (23:01)
[2025-05-26 03:23] VITALS: BP 108/49
[2025-05-26] MEDS: NSS 1000 IV (06:14)
[2025-05-26 06:46] LABS: Hematocrit 33.9 % (37.0-47.0); Hemoglobin 11.2 g/dL (12.0-16.0); Mean Corp Hgb Conc. 33.0 g/dL (33.0-37.0); Mean Corpuscular Volume 92.6 fL (81.0-99.0); Nucleated Red Blood Cells % 0 %; Platelet Count 149 10^3/uL (130-400); Red Cell Dist. Width 13.7 % (11.5-14.5)
[2025-05-26 07:28] VITALS: BP 109/57
[2025-05-26 07:34] LABS: ALT (SGPT) 19 U/L (0-35); AST (SGOT) 26 U/L (14-36); Albumin 3.2 g/dl (3.5-5.0); Alkaline Phosphatase 50 U/L (38-126); Blood Urea Nitrogen 16 mg/dl (7-17); Calcium 8.1 mg/dl (8.4-10.2); Carbon Dioxide 24 mmol/L (22-30); Chloride 109 mmol/L (98-107); Estimated Creatinine Clearance 38 ml/min; Glucose 106 mg/dl (70-99); Potassium 3.8 mmol/L (3.5-5.1); Sodium 136 mmol/L (135-145); Total Protein 6.0 g/dl (6.3-8.2); eGFR > 60.00
[2025-05-26] MEDS: QUESTRAN 2 GRAM PO (08:49)
--- NOTE | 2025-05-26 09:03 | W.PN.URO.CBU ---
Today's Communication / Plan
-
home
Assessment / Plan
-
pt improved hats stent but stable home today
Diagnosis
-
Date of Service: May 26, 2025
-
Patient Diagnosis:
Post Op Day:
Patient Diagnosis:intractable pain due to partially obstructing 5mm mid left uretral stone
Post Op Day:
Subjective
-
feels better
Objective
-
Vital Signs
Temp Pulse Resp BP Pulse Ox
98.6 F 55 17 108/49 97
05/26/25 03:23 05/26/25 03:23 05/26/25 03:23 05/26/25 03:23 05/26/25 03:23
Intake and Output
05/25/25 05/26/25 05/27/25
06:59 06:59 06:59
Intake Total 1300 / 1300
Output Total 175 / 175
Balance 1125 / 1125
Intake:
IV fluids (Total) 1300 / 1300
Normosal 100 / 100
Output:
Urine, Voided 175 / 175
Other:
Number of approximated SMALL 1
amounts of urine
Number of approximated MODERATE 1
amounts of urine
Laboratory Results
05/26/25 05:54
05/26/25 05:54
Review of Systems
-
: Frequency and Bleeding
Physical Exam
-
General - well developed, well nourished, no acute distress
Chest - clear bilaterally
Abdomen - soft, non-tender, positive bowel sounds, no CVAT, no incisional pain or distention
Genitalia - normal
Rectal - normal
Skin - warm & dry with no rash
Neuro - AOx3, no motor deficits
Extremities - no clubbing, no cyanosis, no edema
Incision - clean, dry
Dressing - clean, dry, intact
Care Review
Data Reviewed
Discussed with: Nursing
[2025-05-26] MEDS: PROTONIX 40 MG PO (10:26)
[2025-05-26] MEDS: SINGULAIR 10 MG PO (10:26)
[2025-05-26] MEDS: VITAMIN D3 (cholecalciferol) 125 MCG PO (10:27)
[2025-05-26] MEDS: ROCEPHIN 1000 MG IV (10:27)
[2025-05-26] MEDS: STERILE WATER FOR INJECTION 10 ML IV (10:27)
[2025-05-26 11:22] VITALS: BP 114/57
--- NOTE | 2025-05-26 11:44 | WOUNDNOTE ---
RAMIRO RN NOTE: Patient admitted with calculus, ureteral, stone removed by Dr. Yen yesterday. Reviewed chart and PMH. Asked to see for R anterior ankle trauma wound. Patient reports she scraped it on door mat. Base with necrotic yellow mixed with
pink, periwound slightly pink, does not appear to be infected now. No edema in leg, heels and sacrum intact. MASD in gluteal folds, patient reports she is incontinent of stool at times due to Crohn's disease. Using barrier cream and patient states
that is working. Wears depends, using own. Applied adaptic and dry gauze with Spandage to R ankle. Called [facility] for honey gel, asked nurse to apply when arrives and then secure dressing with ehsan at bedside. Supplies at bedside for patient to take
upon discharge. Will confirm orders with hospitalist and sign off unless needed.
--- NOTE | 2025-05-26 11:48 | W.PN.HOSP.TC ---
Today's Communication/Plan
-
DC home
Outpatient urology follow-up for stent removal
P.o. antibiotics on discharge
Assessment / Plan
Assessment / Plan
84-year-old female past medical history of renal stones, Crohn's, anemia who was presented with acute onset of left flank pain. Patient with history of renal stones. Stated persistent left-sided flank pain and nausea. Stated pain was constant,
sharp and severe in intensity.
Left flank pain secondary to left-sided renal stone
Left hydronephrosis secondary to above
History of renal stones
Gallstones
Crohn's and recurrent small bowel volvulus
Asthma
History of acoustic neuroma
Plan
Status post cystoscopy, left ureteroscopy, left laser lithotripsy of stone, stone extraction with basket and double-J stent placement
Patient doing well. Discontinue fluids
IV ceftriaxone while here and by Dr. Yen total of 5 additional days of antibiotic post op.
Patient ambulating without difficulty.
Will need to follow-up outpatient with urology for stent removal
DVT PPX-scds
More than 30 minutes spent in discharge including
Final examination of the patient
Summarizing hospital stay
Instructions for continuing care to all relevant caregivers
Preparation of discharge records, prescriptions, and referral forms
Total time spent (in minutes): 55
Anticipated Discharge: Today
Subjective/Interval History
-
Date of Service: May 26, 2025
feeling better
walking around
mild dysuria
Objective Data
-
Labs:
Laboratory Results
05/26/25
05:54
WBC 8.1
Hgb 11.2 L
Hct 33.9 L
Plt Count 149
Sodium 136
Potassium 3.8
Chloride 109 H
Carbon Dioxide 24
BUN 16
Creatinine 0.9
Glucose 106 H
Calcium 8.1 L
Total Bilirubin 2.9 H
AST 26
ALT 19
Alkaline Phosphatase 50
Vital Signs:
Vital Signs
Temp Pulse Resp BP Pulse Ox
98.8 F 63 16 109/57 96
05/26/25 07:28 05/26/25 07:28 05/26/25 07:28 05/26/25 07:28 05/26/25 07:28
I&O
05/25/25 05/26/25 05/27/25
06:59 06:59 06:59
Intake Total 1300 / 1300
Output Total 175 / 175
Balance 1125 / 1125
Physical Exam
-
General: Well Developed, Well Nourished, No Apparent Distress and Comfortable
HEENT: Normocephalic and Atraumatic
Respiratory: Clear to Auscultation
Cardiac: Regular Rhythm and S1/S2
GI: Soft, Nontender, Nondistended and Normal Bowel Sounds
Musculoskeletal: No Clubbing, No Cyanosis and No Edema
Neuro: Awake, Alert, Oriented, AO x 3 and Nonfocal/Grossly Intact
Psych: Calm
--- NOTE | 2025-05-26 11:50 | W.DCSUMMARY ---
Discharge Summary
Discharge Data
Date of Admission: 05/25/25
Date of Discharge: 05/26/25
-
Pending Results: No
Hospital Course
84-year-old female past medical history of renal stones, Crohn's, anemia who was presented with acute onset of left flank pain. Patient with history of renal stones. Stated persistent left-sided flank pain and nausea. Stated pain was constant,
sharp and severe in intensity. CT abdomen/pelvis showed Moderate left hydronephrosis secondary to 5 mm calculus in the mid left ureter. Left nephrolithiasis as above. Patient was on IV fluids. IV ceftriaxone started. Patient was evaluated by
Yovana urologist Status post cystoscopy, left ureteroscopy, left laser lithotripsy of stone, stone extraction with basket and double-J stent placement. Postop patient did well. Tolerating p.o. Ambulating in room without difficulty. Per DrColin
Yovana recommended postop antibiotics on discharge.
Discharge Plan
-
Patient Disposition: Home (Routine Discharge)
Discharge Diagnosis/Procedures: Left sided renal stone status post cystoscopy status post stone extraction status post stent placement
Condition: Fair
Diet: Regular
Activity: As tolerated
Driving Restrictions: As prior to admission
Activity Restrictions/Additional Instructions:
Wound Care Instructions
R anterior ankle: clean with soap and water, smear of honey gel followed by adaptic and dry dressing daily until healed.
leg elevation when sitting
increase protein in diet to help with wound healing
*IF WOUND DOES NOT HEAL THEN;
Follow up at wound care center call for an appointment.
Referrals:
Troy Diaz MD [Family Provider, Family Practice]
Prescriptions:
New
cefdinir 300 mg capsule
300 mg PO Q12H Qty: 8 0RF
Continued
cetirizine 10 MG tablet
10 mg PO HS
omeprazole 20 MG capsule,delayed release(DR/EC)
20 mg PO MOWEFR
fluticasone propionate 1 SPRAY spray,suspension
1 spray intranasal HS
calcium citrate-vitamin D3 [Citracal + D Maximum] 1 EACH tablet
1 tab PO HS
fluticasone propion-salmeterol [Wixela Inhub] 250-50 mcg/dose Blister With Device
1 inh INHALATION R HS
estradiol 0.025 mg/24 hr Patch Weekly
1 patch TRANSDERMAL TU
montelukast 10 mg Tablet
10 mg PO DAILY
azelastine 137 mcg (0.1 %) Aerosol,[place]
1 spray INTRANASAL DAILY
progesterone micronized 100 mg Capsule
100 mg PO HS
cyanocobalamin (vitamin B-12) 1,000 mcg Tablet
1,000 mcg PO HS
famotidine 20 mg Tablet
20 mg PO SUTUTHSA
cholecalciferol (vitamin D3) [Vitamin D3] 125 mcg (5,000 unit) Tablet
125 mcg PO DAILY
psyllium Packet
1 packet PO DAILY@1200
cholestyramine (with sugar) 4 gram Powder In Packet
2 g PO BID
biotin 2,500 mcg Capsule
5,000 mcg PO QPM
Discharge Orders:
Discharge Patient (As Directed); Ordered 05/26/25
Ordered By: Wilfrido Dillard
Discharge Date and Time
Print Language: SOMALI
--- NOTE | 2025-05-26 12:27 | CM ---
patient seen at bedside
Discharge today
IMM explained & signed. In chart
offered VN, wound care & patient declined
PLAN: Home, no needs
family to transport
[2025-05-26] MEDS: METAMUCIL, KONSYL 1 PACKET PO (13:51)
== END 2025-05-26 16:30 | disposition home or self-care (01) | DRG 659 ==
LOC: 2 SOUTH 09:42
PROVIDERS: Emergency Medicine; Student in an Organized Health Care Education/Training Program; ADMITTING PHYSICIAN Hospitalist; CONSULT PHYSICIAN Specialist; EMERGENCY PHYSICIAN Emergency Medicine; FAMILY PHYSICIAN Family Medicine
PROC: 0T778DZ Dilation of Left Ureter with Intraluminal Device, Via Natural or Artificial Opening Endoscopic (ICD-10-PCS; 2025-05-25)
PROC: 0TC18ZZ Extirpation of Matter from Left Kidney, Via Natural or Artificial Opening Endoscopic (ICD-10-PCS; 2025-05-25)
DX: N13.2 Hydronephrosis with renal and ureteral calculous obstruction (principal); K56.2 Volvulus; K50.90 Crohn's disease, unspecified, without complications; K80.20 Calculus of gallbladder without cholecystitis without obstruction
CPT/HCPCS: 74018; 74176; 76000; 80053; 81003; 81015; 82365; 83690; 85025; 87086; 94640; 96361; 96374; 96375; 96376; 99285